=== PATIENT | female | born 1940 | race Caucasian/White ===

== ENCOUNTER 2023-11-20 12:41 | Inpatient (IN) | payer MEDICARE, OTHER, SELFPAY ==
[2023-11-20] VITALS (9 sets, daily range): BP systolic 125–152; BP diastolic 75–112; PULSE 61–154; RESP 16–29; TEMP 36.5–36.8; O2SAT 90–94; BMI 25.7
--- NOTE | 2023-11-20 11:53 | ECG_ITS ---
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 Measurements Intervals [place] Rate: 109 P: 0 AK: 0 QRS: 0 QRSD: 86 T: -26 QT: 346 QTc: 468 Interpretive Statements ATRIAL FIBRILLATION WITH RAPID VENTRICULAR RESPONSE LOW QRS VOLTAGE IN EXTREMITY LEADS [QRS DEFLECTION < 0.5 mV IN LIMB LEADS] POSSIBLE ANTERIOR MYOCARDIAL INFARCTION , PROBABLY OLD [30 ms Q WAVE IN V3/V4, OR R < 0.2 mV IN V4] Compared to ECG 10/09/2016 20:36:07 No significant changes Electronically Signed On 11-20-2023 22:02:39 CDT by Javon Frazier M.D. [id number]
--- NOTE | 2023-11-20 12:49 | XRR_ITS ---
PROCEDURE INFORMATION: Exam: XR Chest Exam date and time: 11/20/2023 12:54 PM Age: 83 years old Clinical indication: Cough and dyspnea; Additional info: Dyspnea/cough TECHNIQUE: Imaging protocol: Radiologic exam of the chest. Views: 1 view. COMPARISON: No relevant prior studies available. FINDINGS: Tubes, catheters and devices: Overlying monitor leads. Lungs: Mild increased markings suggesting small amount of patchy infiltrate mid to lower left lung. Small atelectasis versus scar left lung base. No consolidation. Pleural spaces: Left costophrenic angle is partially obscured in could indicate trace effusion or mild pleural thickening. No pneumothorax. Heart/Mediastinum: Borderline cardiac size. Vasculature: Arteriosclerosis of the thoracic aorta. Bones/joints: Visualized osseous structures show no acute abnormality. XR/XR chest 1V portable [id number] IMPRESSION: Small amount of patchy infiltrate or pneumonitis mid to lower left lung suggested, along with small atelectasis versus scar left lung base. Possible trace effusion versus mild pleural thickening left costophrenic angle.
--- NOTE | 2023-11-20 12:56 | W.ED.WEAKNES ---
HPI - Weakness General: Chief complaint: Weakness Stated complaint: general weakness Time Seen by Provider: 11/20/23 12:43 Source: patient Mode of arrival: EMS History of Present Illness: 83-year-old female presents to the emergency room feeling generally very weak states been hard to get up and get around. EMS reported they were able to transfer from chair to the cot. She states she has not been able to ambulate at home she is not taking any of her medicines today she feels very weak and disoriented. She denies any chest pain or shortness of breath no abdominal pain no dysuria urgency or frequency. She has a history of A-fib with RVR and is on metoprolol and Coumadin she took her Coumadin yesterday was not taking any of her medicines at 2-day. She did fall at home and hit the back of her head although it is a little difficult to get over her exactly where this occurred. MD Complaint: generalized weakness Onset (ago): day(s) Duration: constant and progressively worsening Location: generalized Relieving factors: none Exacerbating factors: none Associated symptoms: Denies chest pain, chills, confusion, melena, decreased appetite, diaphoresis, dysuria, easy bruising, fever(s), headache(s), myalgias, nausea, rash, short of breath, syncope or vomiting Review of Systems Const: Denies: fever(s), chills or diaphoresis Card: Denies: chest pain or syncope Resp: Denies: dyspnea GI: Denies: nausea, vomiting or melena : Denies: dysuria Musc: Denies: neck pain or back pain Skin/Breast: Denies: rash Neuro: Denies: headache(s) or confusion Himanshu/Lymph: Denies: easy bruising [facility] ED PFSH: Medical History (Updated 11/20/23 @ 15:06 by Panchito Resendez DO) Atrial fibrillation Physical Exam Const: GENERAL APPEARANCE: cooperative and comfortable ORIENTATION/CONSCIOUSNESS: Yes awake, Yes oriented to person, Yes oriented to place and Yes oriented to time HENMT: COMMON NORMALS: normocephalic, atraumatic and hearing grossly normal bilaterally HEAD & SCALP: normocephalic and atraumatic Resp: COMMON NORMALS: normal respiratory effort, No retractions and No use of accessory muscles AUSCULTATION: rhonchi Cardio: COMMON NORMALS: No murmurs present (Cardio) RATE: tachycardic RHYTHM: abnormal rhythm irregularly irregular GI: COMMON NORMALS: Soft to palpation and No hepatosplenomegaly present AUSCULTATION: Yes normoactive bowel sounds PALPATION: Yes Soft to palpation, No Tenderness to palpation present (GI), No Guarding due to palpation present (GI) and Yes No hepatosplenomegaly present Extremity: COMMON NORMALS: normal to inspection, capillary refill normal, no clubbing, cyanosis or edema, no calf tenderness and no pedal edema Neuro: SENSORIUM/ORIENTATION: Yes oriented to person, Yes oriented to place and Yes oriented to time Skin: COMMON NORMALS: no rashes or lesions noted GENERAL SKIN EXAM: no rashes or lesions noted Course Vital Signs: Vital signs: Vital Signs Temperature 98.0 F 11/20/23 12:41 Pulse Rate 122 H 11/20/23 12:41 Respiratory Rate 17 11/20/23 12:41 Blood Pressure 138/95 11/20/23 12:41 Pulse Oximetry 92 11/20/23 12:41 Oxygen Delivery Me thod Room Air 11/20/23 12:41 MDM - Weakness Medical Decision Making Patient is in A-fib with RVR as well as some mild heart failure and needed. She also has very mild rhabdomyolysis. Will admit to CSU. Initially we gave her her regular medications for her A-fib as her heart rate was only slightly over 100 however in bed with any activity even attempts to reposition herself her heart rate will shoot up to the 130s and above. At times sustained. Patient was given a Cardizem bolus of 10 mg and started on a drip at 5 will titrate to rate control. Once her rate is controlled she may require some Lasix. Chest x-ray also showed some infiltrate there is a mild elevation in white count she has been cultured and we will start her on Levaquin for what is her while her pressure is better now recheck a manual blood pressure on her please some that were crazy high she is pneumonia. Discussed with hospitalist orders are written Medical Records I reviewed the patient's medical records. Lab Data I reviewed the patient's lab results. 11/20/23 13:02 11/20/23 13:02 Radiology Impressions Chest X-Ray 11/20/23 12:49 IMPRESSION: Small amount of patchy infiltrate or pneumonitis mid to lower left lung suggested, along with small atelectasis versus scar left lung base. Possible trace effusion versus mild pleural thickening left costophrenic angle. Laboratory Results WBC 11.67 10^3/uL (3.29-11.43) H 11/20/23 13:02 RBC 3.38 10^6/uL (3.85-5.65) L 11/20/23 13:02 Hgb 12.00 g/dL (11.27-16.99) 11/20/23 13:02 Hct 36.3 % (36-47) 11/20/23 13:02 MCV 107.4 fl (85-98) H 11/20/23 13:02 MCH 35.5 pg (27-33) H 11/20/23 13:02 MCHC 33.1 g/dL (30-55) 11/20/23 13:02 RDW 15.4 % (12.1-15.1) H 11/20/23 13:02 Plt Count 215 10^3/cmm (157-399) 11/20/23 13:02 MPV 10.5 fL (7.4-10.4) H 11/20/23 13:02 Neut % (Auto) 57.2 % 11/20/23 13:02 Lymph % (Auto) 20.1 % 11/20/23 13:02 [place] % (Auto) 21.5 % 11/20/23 13:02 Eos % (Auto) 0.2 % 11/20/23 13:02 Baso % (Auto) 0.1 % 11/20/23 13:02 Neut # (Auto) 6.67 10^3/uL (1.8-7.7) 11/20/23 13:02 Lymph # (Auto) 2.4 10^3/uL (0.8-4.8) 11/20/23 13:02 [place] # (Auto) 2.5 10^3/uL (0.2-0.9) H 11/20/23 13:02 Eos # (Auto) 0.0 10^3/uL (0.0-0.8) 11/20/23 13:02 Baso # (Auto) 0.0 10^3/uL (0.0-0.1) 11/20/23 13:02 Nucleated RBC % (auto) 0 % 11/20/23 13:02 Nucleated RBCs # 0.0 /100WBC 11/20/23 13:02 PT 38.60 SECONDS (12.1-14.9) H 11/20/23 13:02 INR 3.76 (0.8-1.2) H 11/20/23 13:02 Sodium 139 mmol/L (136-145) 11/20/23 13:02 Potassium 3.5 mmol/L (3.5-5.1) 11/20/23 13:02 Chloride 104 mmol/L (98-107) 11/20/23 13:02 Carbon Dioxide 23 mmol/L (22-29) 11/20/23 13:02 Anion Gap 15.5 (5-19) 11/20/23 13:02 BUN 15 mg/dL (8-23) 11/20/23 13:02 Creatinine 0.5 mg/dL (0.5-0.9) 11/20/23 13:02 GFR Calculation Not Reportable 11/20/23 13:02 Glucose 104 mg/dL (65-115) 11/20/23 13:02 Calculated Osmolality 289 mOsm/kg (285-295) 11/20/23 13:02 Lactic Acid 1.2 mmol/L (0.5-2.2) 11/20/23 13:02 Calcium 9.3 mg/dL (8.5-10.5) 11/20/23 13:02 Total Bilirubin 0.5 mg/dL (0.15-1.2) 11/20/23 13:02 AST 45 U/L (0-32) H 11/20/23 13:02 ALT 18 U/L (0-33) 11/20/23 13:02 Alkaline Phosphatase 65 U/L (35-105) 11/20/23 13:02 Creatine Kinase 385 U/L (26-192) H* 11/20/23 13:02 Troponin T Baseline 22 ng/L (0-10) H 11/20/23 13:02 NT-Pro-B Natriuret Pep 3754 pg/mL (0-450) H 11/20/23 13:02 Total Protein 9.2 g/dL (6.6-8.7) H 11/20/23 13:02 Albumin 3.0 g/dL (3.5-5.2) L 11/20/23 13:02 Globulin 6.2 g/dL (1.3-4.6) H 11/20/23 13:02 Lipase 18 U/L (13-60) 11/20/23 13:02 All radiology interpretation(s) finalized by discharge Discharge Plan Discharge Patient Disposition: Admitted As Inpatient Clinical Impression: Atrial fibrillation with rapid ventricular response, Rhabdomyolysis, Pneumonia, CHF (congestive heart failure) Condition: Stable Prescriptions: No Action paroxetine HCl 10 mg tablet 10 mg PO DAILY warfarin 3 mg tablet See Rx Instructions .ROUTE .COMPLEX Rx Instructions: TAKE 1 TABLET BY MOUTH DAILY EXCEPT THURSDAY AND THURSDAY. trazodone 150 mg tablet 75 - 150 mg PO BEDTIME PRN (Reason: Sleep) warfarin 2 mg Tablet See Rx Instructions .ROUTE .COMPLEX Rx Instructions: TAKE 2 MG BY MOUTH ON THURSDAY AND THURSDAY. metoprolol tartrate 50 mg Tablet 50 mg PO DAILY Referrals: Derek Ramesh MD [Primary Care Provider] - Coding Level of Care Code ED Siding Coreboard Inspector for Mary Zaldivar
--- NOTE | 2023-11-20 13:04 | CT_ITS ---
WS: [id number] CT HEAD NONCONTRAST HISTORY: trauma on anticoagulants TECHNIQUE: Contiguous axial imaging performed through the brain in 2.5 mm imaging. Bone and soft tiss ue windows. Sagittal and coronal reformats reviewed. All CT scans at [facility] use at least one of these dose optimization techniques: automated exposure control; mA and/or kV adjustment per pa tient size (includes targeted exams where dose is matched to clinical indication); or iterative recon struction. DLP: 1243.28 mGy.cm COMPARISON: None available. Mild motion artifact. No large areas of hemorrhage. There are a few scattered foci in the cerebellum and cerebrum of slight increased attenuation which may be areas of calcification. It would be difficu lt to exclude tiny areas of hemorrhage. There is no large hemorrhage. No mass effect or edema. Severe atrophy and white matter disease. Ventricles: Mildly dilated ventricles on the basis of atrophy. No inferior displacement of the cerebellar tonsils. Paranasal sinuses: As visualized are clear. Mastoid air cells: Well pneumatized. Calvarium and scalp: Skull is intact with no soft tissue edema or swelling. IMPRESSION: 1. Study is limited by motion artifact. 2. Severe atrophy and small vessel ischemic disease. 3. There are a few tiny foci of increased attenuation scattered throughout the cerebrum and in the c erebellum. These may be tiny calcifications or related to motion. Tiny amount of blood cannot be excl uded.
[2023-11-20 13:10] LABS: Basophils % 0.1 %; Eosinophils % 0.2 %; Hematocrit 36.3 % (36-47); Lymphocytes # 2.4 10^3/uL (0.8-4.8); Lymphocytes % 20.1 %; Mean Corpuscular HGB Conc 33.1 g/dL (30-55); Mean Corpuscular Hemoglobin 35.5 pg (27-33); Mean Corpuscular Volume 107.4 fl (85-98); Mean Platelet Volume 10.5 fL (7.4-10.4); Monocytes # 2.5 10^3/uL (0.2-0.9); Monocytes % 21.5 %; Neutrophils # 6.67 10^3/uL (1.8-7.7); Neutrophils % 57.2 %; Nucleated Red Blood Cells % 0 %; Platelet Count 215 10^3/cmm (157-399); Red Blood Count 3.38 10^6/uL (3.85-5.65); Red Cell Distribution Width 15.4 % (12.1-15.1); White Blood Count 11.67 10^3/uL (3.29-11.43)
[2023-11-20] MEDS: metoprolol tartrate 25 mg Tablet PO (13:18)
[2023-11-20 13:29] LABS: Lactic Sepsis W/Reflex 1.2 mmol/L (0.5-2.2)
[2023-11-20 13:33] LABS: Troponin(5th) Baseline 22 ng/L (0-10)
[2023-11-20 13:36] LABS: INR 3.76 (0.8-1.2)
[2023-11-20 13:48] LABS: Alanine Aminotransferase 18 U/L (0-33); Alkaline Phosphatase 65 U/L (35-105); Anion Gap 15.5 (5-19); Aspartate Amino Transferase 45 U/L (0-32); Blood Urea Nitrogen 15 mg/dL (8-23); Calcium 9.3 mg/dL (8.5-10.5); Carbon Dioxide 23 mmol/L (22-29); Chloride 104 mmol/L (98-107); Globulin 6.2 g/dL (1.3-4.6); Glucose 104 mg/dL (65-115); Lipase 18 U/L (13-60); NT Pro B Type Natriuretic Pept 3754 pg/mL (0-450); Osmolality Calculated 289 mOsm/kg (285-295); Potassium 3.5 mmol/L (3.5-5.1); Sodium 139 mmol/L (136-145); Total Bilirubin 0.5 mg/dL (0.15-1.2); Total Protein 9.2 g/dL (6.6-8.7)
[2023-11-20 13:49] LABS: Creatine Phosphokinase 385 U/L (26-192)
--- NOTE | 2023-11-20 13:54 | ECG_ITS ---
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 Measurements Intervals [place] Rate: 147 P: 0 NV: 0 QRS: 59 QRSD: 89 T: 60 QT: 211 QTc: 331 Interpretive Statements ATRIAL FIBRILLATION WITH RAPID VENTRICULAR RESPONSE WITH ABERRANT CONDUCTION OR VENTRICULAR PREMATURE COMPLEXES LOW QRS VOLTAGE IN EXTREMITY LEADS [QRS DEFLECTION < 0.5 mV IN LIMB LEADS] POSSIBLE ANTERIOR MYOCARDIAL INFARCTION , PROBABLY OLD [30 ms Q WAVE IN V3/V4, OR R < 0.2 mV IN V4] ABNORMAL RHYTHM ECG Compared to ECG 11/20/2023 11:53:06 Ventricular premature complex(es) now present Aberrant conduction of supraventricular beat(s) now present Myocardial infarct finding still present Electronically Signed On 11-20-2023 22:04:03 CDT by Javon Frazier M.D. [id number]
[2023-11-20] MEDS: dilTIAZem 5 mg/mL SDV 5 mL 10 MG IVP (15:00)
[2023-11-20 15:03] LABS: Add Urine Microscopic? YES; Bilirubin Urine Neg (Negative); Blood Urine 2+ (Negative); Glucose Urine UA Norm (Normal); Ketones Urine 1+ (Negative); Leukocyte Esterase Urine Negative (Negative); Nitrate Urine Negative (Negative); Protein Urine Trace (Negative); Specific Gravity, Urine 1.025 (1.005-1.030); Urine Appearance Clear (CLEAR); Urine Color Yellow (Yellow); Urobilinogen Urine Norm (Negative); pH Urine 5 (5-7)
[2023-11-20 15:04] LABS: Add Urine Culture? No; Bacteria Urine TRACE /hpf; RBC Urine 0-4 /hpf (0-2); Squamous Epithelial Cell Urine 0-4 /hpf (0-5); WBC Urine 0-4 /hpf (0-5)
[2023-11-20] MEDS: levofloxacin-dextrose 5 % 500 MG/100 ML PREMIX 100 MG IV (15:04)
[2023-11-20] MEDS: dilTIAZem 100 MG in sodium chloride 0.9% (add-van) 100 ML IV (15:45)
--- NOTE | 2023-11-20 16:04 | P.HP_ITS ---
Providers/Chief Complaint 2 Admitting Physician: Munira Bull MD Primary Care Provider: Derek Ramesh MD Chief Complaint: general weakness History of Present Illness Ida Chicas is a 83 year old female with history of CHF, chronic A-fib, on Coumadin, uses a walker at home, history of bipolar, presented from home with chief complaint of worsening of generalized weakness and fatigue. Patient stating that she has not noticed any chest pain shortness of breath or fever but she has been extremely lethargic and fatigued she has been not eating well, p.o. intake has been poor, she has been leading sedentary lifestyle lately, she has not noticed productive cough. She is very hard of hearing most information has been provided by the patient. Daughters at the bedside are supplementing as well. In the ER she has been diagnosed with CHF exacerbation with A-fib RVR. Currently she is getting IV levofloxacin and on Cardizem drip Review of Systems 2 Const: Reports: chills and fatigue Eyes: Denies: change in vision ENMT: Denies: throat pain Card: Denies: chest pain Resp: Denies: dyspnea GI: Denies: abdominal pain : Denies: flank pain Musc: Denies: neck pain Skin/Breast: Denies: rash Medications/Allergies Home Medications Medication Instructions Recorded Confirmed Last Taken Type metoprolol tartrate 50 mg tablet 50 mg PO DAILY 11/20/23 11/20/23 11/19/23 History paroxetine HCl 10 mg tablet 10 mg PO DAILY 11/20/23 11/20/23 11/19/23 History trazodone 150 mg tablet 75 - 150 mg PO BEDTIME PRN Sleep 11/20/23 11/20/23 11/19/23 History warfarin 2 mg tablet See Rx Instructions .Route .COMPLEX 11/20/23 11/20/23 11/17/23 History warfarin 3 mg tablet See Rx Instructions .Route .COMPLEX 11/20/23 11/20/23 11/19/23 History Allergies Allergy/AdvReac Type Severity Reaction Status Date / Time No Known Allergies Allergy Verified 11/20/23 12:48 PFSH Acute 2 PFSH: Medical History (Updated 11/20/23 @ 16:07 by Angelo Amor MD) CHF (congestive heart failure) Atrial fibrillation Surgical History (Updated 11/20/23 @ 16:07 by Angelo Amor MD) H/O foot surgery Vitals/I&O/Wt Last Vital Signs Temp 98.0 F 11/20/23 12:41 Pulse 117 H 11/20/23 15:26 Resp 17 11/20/23 12:41 BP 147/86 11/20/23 15:26 Pulse Ox 94 11/20/23 15:26 O2 Del Method Room Air 11/20/23 15:26 Weight last 48 hrs Weight 62.596 kg Physical Exam 2 Narrative: Clinical patient is extremely dehydrated Awake and alert GCS 15 Pleasant cough Currently 2 L No abdominal pain No audible stridor or wheezing Daughter at the bedside Patient provide history Nonfocal neuroexam Data 11/20/23 13:02 11/20/23 13:02 Micro: Microbiology 11/20/23 13:47 Blood Culture - Preliminary Blood SPECIMEN COLLECTED 11/20/23 13:46 Blood Culture - Preliminary Blood SPECIMEN COLLECTED A&P Assessment and plan (1) CHF (congestive heart failure): (2) Atrial fibrillation with rapid ventricular response: (3) Pneumonia: (4) Hypoxia: (5) DNR (do not resuscitate): Plan A-fib RVR with history of chronic A-fib Patient is supratherapeutic Hold Coumadin for 1 more day She has not taken her Coumadin on 11/19 Left-sided pneumonia Continue ceftriaxone was p.o. azithromycin DuoNeb treatment Acute hypoxic related to pneumonia Wean oxygen to room air Fatigue lethargy Related to above-mentioned reasons Request PT Agreeable to go to rehab if needed Acute CHF exacerbation Clinically very dehydrated Will give her IV fluids for 7 to 8 hours ef unkown DNR DNI CARD DIET PT Ordered Attestations 2 Medical Necessity Statement*: >2 midnights anticipated Diagnoses CHF (congestive heart failure) I50.9 Atrial fibrillation with rapid ventricular response I48.91 Pneumonia J18.9 Hypoxia R09.02 DNR (do not resuscitate) Z66
[2023-11-20] MEDS: cefTRIAXone 1,000 MG in sodium chloride 0.9% (plus) 50 ML 100 MG IV (16:54)
[2023-11-20 16:56] LABS: Procalcitonin 0.25 ng/mL (0-0.5); Thyroid Stimulating Hormone 2.82 uIU/mL (0.27-4.20)
[2023-11-20 17:07] LABS: Magnesium 1.6 mg/dL (1.7-2.3)
--- NOTE | 2023-11-20 17:39 | PC.PHAR ---
Pharmacy to dose Warfarin. Hold dose today and evaluate tomorrow as INR is 3.76. Will continue to follow Thank you, Daja
[2023-11-20] MEDS: sodium chloride 0.9% 1,000 ML 75 ML IV (17:59)
--- NOTE | 2023-11-20 18:11 | ECG_ITS ---
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 Measurements Intervals [place] Rate: 94 P: 0 VA: 0 QRS: 37 QRSD: 94 T: 42 QT: 355 QTc: 444 Interpretive Statements ATRIAL FIBRILLATION LOW QRS VOLTAGE [QRS DEFLECTION < 0.5/1.0 mV IN LIMB/CHEST LEADS] Compared to ECG 11/20/2023 13:54:45 Ventricular premature complex(es) no longer present Aberrant conduction of supraventricular beat(s) no longer present Myocardial infarct finding no longer present Electronically Signed On 11-20-2023 22:03:21 CDT by Javon Frazier M.D. [id number]
[2023-11-20 19:58] LABS: Troponin 5 6HR 21.54 ng/L (0-10)
[2023-11-20 19:59] LABS: Troponin 5 6HR Delta -0.46 ng/L (0-12)
[2023-11-20] MEDS: trazodone 150 mg Tablet 50 MG PO (21:05)
[2023-11-21] VITALS (10 sets, daily range): BP systolic 113–145; BP diastolic 59–85; PULSE 78–128; RESP 12–31; TEMP 36.2–37; O2SAT 94–96
[2023-11-21 03:52] LABS: Basophils % 0.1 %; Hematocrit 35.3 % (36-47); Lymphocytes # 2.1 10^3/uL (0.8-4.8); Lymphocytes % 15.4 %; Mean Corpuscular Hemoglobin 34.7 pg (27-33); Mean Corpuscular Volume 108.3 fl (85-98); Mean Platelet Volume 10.5 fL (7.4-10.4); Monocytes # 3.7 10^3/uL (0.2-0.9); Monocytes % 27.5 %; Neutrophils # 7.61 10^3/uL (1.8-7.7); Neutrophils % 56.2 %; Nucleated Red Blood Cells % 0 %; Platelet Count 210 10^3/cmm (157-399); Red Blood Count 3.26 10^6/uL (3.85-5.65); Red Cell Distribution Width 15.4 % (12.1-15.1); White Blood Count 13.53 10^3/uL (3.29-11.43)
[2023-11-21 04:15] LABS: INR 3.85 (0.8-1.2)
[2023-11-21 04:48] LABS: Alanine Aminotransferase 17 U/L (0-33); Alkaline Phosphatase 61 U/L (35-105); Anion Gap 12.6 (5-19); Aspartate Amino Transferase 33 U/L (0-32); Blood Urea Nitrogen 14 mg/dL (8-23); Calcium 8.9 mg/dL (8.5-10.5); Carbon Dioxide 24 mmol/L (22-29); Chloride 103 mmol/L (98-107); Creatinine Clr Calc Pharmacy 44.8798; Globulin 5.4 g/dL (1.3-4.6); Glucose 97 mg/dL (65-115); Magnesium 1.6 mg/dL (1.7-2.3); Osmolality Calculated 282 mOsm/kg (285-295); Potassium 3.6 mmol/L (3.5-5.1); Sodium 136 mmol/L (136-145); Total Bilirubin 0.5 mg/dL (0.15-1.2); Total Protein 8.4 g/dL (6.6-8.7)
--- NOTE | 2023-11-21 06:00 | USCV_ITS ---
Ida Chicas Age: 83 Gender: F : 1940 Exam Date: 11/21/2023 14:43 Ordering Phys: Munira Bull MD Technologist: Ben Mejia Exam Location: [facility] [place] Indication: chf BP: 122 / 68 HR: 100 Rhythm: Atrial fibrillation Technical Quality: Adequate MEASUREMENTS (Male / Female) Normal Values 2D ECHO LVOT Diameter 2.2 cm LV Ejection Fraction MOD 2C 63.3 % LV Ejection Fraction 2C AL 62.7 % LA Diameter 3.0 cm RA Systolic Volume 4C AL 37.5 ml RA Systolic Volume 4C MOD 37.8 ml Aorta at Sinotubular Diameter 2.4 cm IVC Diameter 1.8 cm M-MODE LA Ao Ratio MM 1.8 AV Cusp Separation MM 1.2 cm DOPPLER AV Peak Velocity 166.0 cm/s LVOT Peak Velocity 82.0 cm/s AV Area Cont Eq vti 1.9 cm squared AV Area Cont Eq pk 1.9 cm squared MV Peak Velocity 132.0 cm/s MV Area PHT 5.1 cm squared Mitral E to A Ratio 3.6 TV Peak Velocity 245.3 cm/s TR Peak Velocity 265.0 cm/s TR Peak Gradient 28.1 mmHg TR Mean Velocity 208.0 cm/s TR Mean Gradient 18.2 mmHg TR Velocity Time Integral 72.5 cm PV Peak Velocity 101.3 cm/s RV Ejection Time 0.3 s FINDINGS Left Ventricle Normal left ventricular size and systolic function, EF 60%.mild left ventricular hypertrophy. No gross wall motion abnormalities. Right Ventricle Normal right ventricular size and systolic function. Right Atrium Normal right atrial size. Left Atrium Mildly increased left atrial size. Mitral Valve Thickened mitral valve. Mild mitral annular calcification. Aortic Valve Thickened aortic valve. Tricuspid Valve Trace tricuspid valve regurgitation. Pulmonic Valve Pulmonic valve not well visualized. Pericardium No pericardial effusion. Aorta Normal aortic annulus size. IVC Inferior vena cava not visualized. CONCLUSIONS Normal left ventricular size and systolic function, EF 60%.mild left ventricular hypertrophy. No gross wall motion abnormalities. Mildly increased left atrial size. Normal right ventricular size and systolic function. Thickened mitral valve. Mild mitral annular calcification. Trace tricuspid valve regurgitation. Thickened aortic valve. There are no intracardiac masses. There is no pericardial effusion. Technically difficult study because of the poor ultrasonic window. Compared to the study from 05/19/2014, the left atrial enlargement appears to be new Dr Yolanda Moeller MD [facility] (Electronically Signed) Final Date: 21 November 2023 17:43 S
[2023-11-21] MEDS: dilTIAZem 100 MG in sodium chloride 0.9% (add-van) 100 ML IV (07:48)
[2023-11-21] MEDS: PARoxetine 20 mg Tablet 10 MG PO (08:34)
[2023-11-21] MEDS: metoprolol tartrate 50 mg Tablet PO (08:35)
[2023-11-21] MEDS: pantoprazole DR 40 mg Tablet PO (08:35)
[2023-11-21] MEDS: metoprolol tartrate 25 mg Tablet PO (11:09)
[2023-11-21] MEDS: polyethylene glycol 3350 Pkt 17 gm PO (11:09)
[2023-11-21] MEDS: lidocaine 5% Patch 1 PATCH TOPICAL (11:10)
--- NOTE | 2023-11-21 12:47 | P.PN_ITS ---
Subjective 2 Subjective: Seen this morning. Patient states left side of her chest hurts which is positional pain and exacerbates upon movement.. She was apparently on the toilet for 6 hours in a sideways position leaning on that side before she was taken to bed by her daughter. Heart rate 105-110. Atrial fibrillation Vitals/I&O/Wt Last Vital Signs Temp 98.6 F 11/21/23 07:56 Pulse 83 11/21/23 10:00 Resp 16 11/21/23 10:00 BP 145/78 11/21/23 07:56 Pulse Ox 95 11/21/23 10:00 O2 Del Method Nasal Cannula 11/21/23 10:00 O2 Flow Rate 2 11/21/23 10:00 11/20/23 11/21/23 11/21/23 22:59 06:59 14:59 Intake Total 270 / 270 1080.25 / 1080.25 Output Total 0 / 0 Balance 270 / 270 1080.25 / 1080.25 Weight last 48 hrs Weight 61.83 kg Weight 61.689 kg Weight 62.596 kg Physical Exam 2 Narrative: Appears dehydrated still. Awake and alert GCS 15 Pleasant cough Currently 2 L No abdominal pain No audible stridor or wheezing Daughter at the bedside Clear to auscultation bilaterally no wheezes no rhonchi. Abdomen distended which is chronic for her. Denies any pain. Nontender, bowel sounds present equally in all 4 quadrants. Nonfocal neuroexam Data 11/21/23 03:27 11/21/23 03:27 Micro: Microbiology 11/20/23 13:47 Blood Culture - Preliminary Blood SPECIMEN COLLECTED 11/20/23 13:46 Blood Culture - Preliminary Blood SPECIMEN COLLECTED A&P Assessment and plan (1) CHF (congestive heart failure): (2) Atrial fibrillation with rapid ventricular response: (3) Pneumonia: (4) Hypoxia: (5) DNR (do not resuscitate): Plan A-fib RVR with history of chronic A-fib Patient is supratherapeutic Hold Coumadin for 1 more day She has not taken her Coumadin on 11/19 INR 2.85 today. Continue to hold Coumadin. Titrate metoprolol up to 75 twice daily. Patient takes 50 at home. Will aim to wean off Cardizem drip. Left-sided pneumonia Continue ceftriaxone and p.o. azithromycin DuoNeb treatment Acute hypoxic related to pneumonia Wean oxygen to room air Fatigue lethargy?improved Related to above-mentioned reasons Request PT Agreeable to go to rehab if needed Acute CHF exacerbation Clinically very dehydrated Will give her IV fluids for 7 to 8 hours ef unkown Echocardiogram pending. Left-sided musculoskeletal chest pain. Apply lidocaine patch to the area. This pain has completely positional and musculoskeletal related and not cardiac based on clinical exam. Reproducible to palpation. DNR DNI CARD DIET PT Ordered Attestations 2 Medical Necessity Statement*: Continue to manage atrial fibrillation with RVR and pneumonia. Patient currently on a Cardizem drip. Diagnoses CHF (congestive heart failure) I50.9 Atrial fibrillation with rapid ventricular response I48.91 Pneumonia J18.9 Hypoxia R09.02 DNR (do not resuscitate) Z66
[2023-11-21] MEDS: cefTRIAXone 1,000 MG in sodium chloride 0.9% (plus) 50 ML 100 MG IV (16:21)
[2023-11-21] MEDS: trazodone 150 mg Tablet 50 MG PO (22:06)
[2023-11-21] MEDS: acetaminophen 325 mg Tablet 650 MG PO (22:10)
[2023-11-22] VITALS (11 sets, daily range): BP systolic 99–131; BP diastolic 55–91; PULSE 94–121; RESP 15–29; TEMP 36.4–37.1; O2SAT 94–97
[2023-11-22 04:37] LABS: Basophils % 0.1 %; Eosinophils # 0.1 10^3/uL (0.0-0.8); Eosinophils % 0.5 %; Hematocrit 32.8 % (36-47); Lymphocytes # 2.2 10^3/uL (0.8-4.8); Lymphocytes % 17.9 %; Mean Corpuscular HGB Conc 32.6 g/dL (30-55); Mean Corpuscular Hemoglobin 35.2 pg (27-33); Mean Corpuscular Volume 107.9 fl (85-98); Mean Platelet Volume 10.4 fL (7.4-10.4); Monocytes # 3.8 10^3/uL (0.2-0.9); Monocytes % 30.8 %; Neutrophils # 6.15 10^3/uL (1.8-7.7); Neutrophils % 49.3 %; Nucleated Red Blood Cells % 0 %; Platelet Count 188 10^3/cmm (157-399); Red Blood Count 3.04 10^6/uL (3.85-5.65); Red Cell Distribution Width 15.4 % (12.1-15.1); White Blood Count 12.45 10^3/uL (3.29-11.43)
[2023-11-22 04:46] LABS: INR 4.04 (0.8-1.2)
[2023-11-22 05:02] LABS: Anion Gap 10.7 (5-19); Blood Urea Nitrogen 16 mg/dL (8-23); Carbon Dioxide 27 mmol/L (22-29); Chloride 103 mmol/L (98-107); Creatinine Clr Calc Pharmacy 44.9273; Glucose 117 mg/dL (65-115); Magnesium 1.7 mg/dL (1.7-2.3); Osmolality Calculated 286 mOsm/kg (285-295); Potassium 3.7 mmol/L (3.5-5.1); Sodium 137 mmol/L (136-145)
[2023-11-22] MEDS: metoprolol tartrate 50 mg Tablet PO (09:11)
[2023-11-22] MEDS: PARoxetine 20 mg Tablet 10 MG PO (09:11)
[2023-11-22] MEDS: pantoprazole DR 40 mg Tablet PO (09:11)
[2023-11-22] MEDS: lidocaine 5% Patch 1 PATCH TOPICAL (09:43)
--- NOTE | 2023-11-22 09:56 | PC.NURSE ---
order for an additional 25mg of metoprolol this morning to total 75mg.
[2023-11-22] MEDS: metoprolol tartrate 25 mg Tablet PO (10:04)
--- NOTE | 2023-11-22 13:40 | P.PN_ITS ---
Subjective 2 Subjective: Seen today. A-fib still uncontrolled heart rate. Still requiring Cardizem drip. I have asked the nurse to titrate up the drip. Metoprolol also been increased. Vitals/I&O/Wt Last Vital Signs Temp 97.8 F 11/22/23 11:30 Pulse 110 H 11/22/23 11:30 Resp 23 H 11/22/23 11:30 BP 124/91 11/22/23 11:30 Pulse Ox 95 11/22/23 11:30 O2 Del Method Nasal Cannula 11/22/23 11:30 O2 Flow Rate 2.5 11/22/23 08:20 11/21/23 11/22/23 11/22/23 22:59 06:59 14:59 Intake Total 50 / 1216.25 240 / 240 Balance 50 / 1216.25 240 / 240 Weight last 48 hrs Weight 60.963 kg Weight 61.83 kg Weight 61.689 kg Physical Exam 2 Narrative: Awake and alert GCS 15 Pleasant cough Currently 2 L No abdominal pain No audible stridor or wheezing Daughter at the bedside Clear to auscultation bilaterally no wheezes no rhonchi. Abdomen distended which is chronic for her. Denies any pain. Nontender, bowel sounds present equally in all 4 quadrants. Nonfocal neuroexam Family at bedside today. Patient feels better. Data 11/22/23 04:07 11/22/23 04:07 Micro: Microbiology 11/20/23 13:47 Blood Culture - Preliminary Blood NEGATIVE TO DATE 11/20/23 13:46 Blood Culture - Preliminary Blood NEGATIVE TO DATE A&P Assessment and plan (1) CHF (congestive heart failure): (2) Atrial fibrillation with rapid ventricular response: (3) Pneumonia: (4) Hypoxia: (5) DNR (do not resuscitate): Plan A-fib RVR with history of chronic A-fib Patient is supratherapeutic Hold Coumadin for 1 more day She has not taken her Coumadin on 11/19 INR 2.85 today. Continue to hold Coumadin. Continue metoprolol 75 twice daily.. Titrate up Cardizem drip to 5/h. Left-sided pneumonia Continue ceftriaxone and p.o. azithromycin DuoNeb treatment Acute hypoxic related to pneumonia Wean oxygen to room air Fatigue lethargy?improved Related to above-mentioned reasons Request PT Agreeable to go to rehab if needed Acute CHF exacerbation Normal left ventricular size and systolic function, EF 60%.mild left ventricular hypertrophy. No gross wall motion abnormalities. Mildly increased left atrial size. Normal right ventricular size and systolic function. Thickened mitral valve. Mild mitral annular calcification. Trace tricuspid valve regurgitation. Thickened aortic valve. There are no intracardiac masses. There is no pericardial effusion. Technically difficult study because of the poor ultrasonic window. Compared to the study from 05/19/2014, the left atrial enlargement appears to be new - appeared dehydrated so was given IV fluids for 1L Left-sided musculoskeletal chest pain. Apply lidocaine patch to the area. This pain has completely positional and musculoskeletal related and not cardiac based on clinical exam. Reproducible to palpation. DNR DNI CARD DIET PT Ordered Attestations 2 Medical Necessity Statement*: Continue to manage atrial fibrillation with RVR and pneumonia. Patient currently on a Cardizem drip. Diagnoses CHF (congestive heart failure) I50.9 Atrial fibrillation with rapid ventricular response I48.91 Pneumonia J18.9 Hypoxia R09.02 DNR (do not resuscitate) Z66
--- NOTE | 2023-11-22 14:06 | PC.NURSE ---
Patient sat in chair for 2 hours, from 1200 to 1400.
[2023-11-22] MEDS: dilTIAZem 100 MG in sodium chloride 0.9% (add-van) 100 ML IV (14:20)
[2023-11-22] MEDS: cefTRIAXone 1,000 MG in sodium chloride 0.9% (plus) 50 ML 100 MG IV (15:59)
[2023-11-22] MEDS: lanolin oint 7 gm 1 APPLIC TOPICAL (19:50)
[2023-11-22] MEDS: trazodone 150 mg Tablet 50 MG PO (21:46)
[2023-11-22] MEDS: metoprolol tartrate 50 mg Tablet 75 MG PO (21:46)
--- NOTE | 2023-11-22 23:21 | PC.NURSE ---
After nurse read dr notes Diltiazem titrated up due to note from dr. pt hr not consistently under 100. around 2300 titrated to 5mls/hr.
[2023-11-23] VITALS (8 sets, daily range): BP systolic 107–132; BP diastolic 57–75; PULSE 87–113; RESP 16–27; TEMP 36.4–36.9; O2SAT 92–95
[2023-11-23 04:58] LABS: Basophils % 0.2 %; Eosinophils # 0.1 10^3/uL (0.0-0.8); Eosinophils % 0.4 %; Hematocrit 34.5 % (36-47); Lymphocytes # 2.6 10^3/uL (0.8-4.8); Lymphocytes % 20.8 %; Mean Corpuscular Hemoglobin 35.4 pg (27-33); Mean Corpuscular Volume 107.1 fl (85-98); Mean Platelet Volume 10.8 fL (7.4-10.4); Monocytes # 3.6 10^3/uL (0.2-0.9); Monocytes % 28.9 %; Neutrophils # 6.03 10^3/uL (1.8-7.7); Neutrophils % 48.3 %; Nucleated Red Blood Cells % 0 %; Platelet Count 209 10^3/cmm (157-399); Red Blood Count 3.22 10^6/uL (3.85-5.65); Red Cell Distribution Width 15.2 % (12.1-15.1); White Blood Count 12.49 10^3/uL (3.29-11.43)
[2023-11-23 05:09] LABS: INR 2.76 (0.8-1.2)
[2023-11-23 05:23] LABS: Anion Gap 11.7 (5-19); Blood Urea Nitrogen 14 mg/dL (8-23); Calcium 9.1 mg/dL (8.5-10.5); Carbon Dioxide 27 mmol/L (22-29); Chloride 99 mmol/L (98-107); Creatinine Clr Calc Pharmacy 44.6356; Glucose 98 mg/dL (65-115); Osmolality Calculated 278 mOsm/kg (285-295); Potassium 3.7 mmol/L (3.5-5.1); Sodium 134 mmol/L (136-145)
[2023-11-23] MEDS: pantoprazole DR 40 mg Tablet PO (08:23)
[2023-11-23] MEDS: metoprolol tartrate 50 mg Tablet 75 MG PO ×2 (08:23→20:28)
[2023-11-23] MEDS: PARoxetine 20 mg Tablet 10 MG PO (08:23)
[2023-11-23] MEDS: warfarin 1 mg Tablet 3 MG PO (14:22)
[2023-11-23] MEDS: cefTRIAXone 1,000 MG in sodium chloride 0.9% (plus) 50 ML 100 MG IV (16:35)
--- NOTE | 2023-11-23 17:14 | PM.PN ---
Subjective Subjective: patient states she continues to feel weak today. Cardizem drip titrated off this morning. Heart rate is currently 72 bpm at the time of assessment. She states that she feels very lethargic and weak. Currently getting ready to participate with physical therapy. Medications: Reviewed: Yes Vitals/I&O/Wt Last Vital Signs Temp 98.4 F 11/23/23 08:00 Pulse 101 H 11/23/23 08:00 Resp 20 H 11/23/23 08:00 BP 132/75 11/23/23 08:00 Pulse Ox 95 11/23/23 08:00 O2 Del Method Nasal Cannula 11/23/23 07:50 O2 Flow Rate 2 11/23/23 07:50 11/23/23 11/23/23 11/23/23 06:59 14:59 22:59 Intake Total 52.125 / 645.458 120 / 120 Output Total 0 / 0 Balance 52.125 / 645.458 120 / 120 Weight last 48 hrs Weight 61.689 kg Weight 60.963 kg Physical Exam Narrative: General: No acute distress, AO x3 HEENT: PERRLA, pupils bilaterally equal and reactive, pallors not present Chest: Normal vesicular breath sounds, no added sounds, equal good air entry bilaterally CVS: S1-S2 regular, no murmurs, no tachycardia, no gallops, no rubs Abdomen: Soft, nontender, no organomegaly, bowel sounds present Neuro: No focal deficits, no facial deformity, AO x3, power 5/5 in all limbs Data 11/23/23 03:46 11/23/23 03:46 A&P Assessment and plan (1) CHF (congestive heart failure): (2) Atrial fibrillation with rapid ventricular response: (3) Pneumonia: (4) Hypoxia: (5) DNR (do not resuscitate): Plan A-fib RVR with history of chronic A-fib Patient is supratherapeutic Hold Coumadin for 1 more day She has not taken her Coumadin on 11/19 INR 2.85 today. Continue to hold Coumadin. Continue metoprolol 75 twice daily.. Titrate up Cardizem drip to 5/h. Left-sided pneumonia Continue ceftriaxone and p.o. azithromycin DuoNeb treatment Acute hypoxic related to pneumonia Wean oxygen to room air Fatigue lethargy?improved Related to above-mentioned reasons Request PT Agreeable to go to rehab if needed Acute CHF exacerbation Normal left ventricular size and systolic function, EF 60%.mild left ventricular hypertrophy. No gross wall motion abnormalities. Mildly increased left atrial size. Normal right ventricular size and systolic function. Thickened mitral valve. Mild mitral annular calcification. Trace tricuspid valve regurgitation. Thickened aortic valve. There are no intracardiac masses. There is no pericardial effusion. Technically difficult study because of the poor ultrasonic window. Compared to the study from 05/19/2014, the left atrial enlargement appears to be new - appeared dehydrated so was given IV fluids for 1L Left-sided musculoskeletal chest pain. Apply lidocaine patch to the area. This pain has completely positional and musculoskeletal related and not cardiac based on clinical exam. Reproducible to palpation. DNR DNI CARD DIET PT Ordered Plan for today November 23, 2023. Continue metoprolol 75 mg p.o. twice daily, heart rate is better controlled. Add atypical coverage with azithromycin 500 mg over the next 3 days. Participating with physical therapy today. Patient exhibits decreased attention decreased endurance and decreased strength. Will likely benefit from ongoing therapy. Attestations Medical Necessity Statement*: Ongoing disposition planning, likely to benefit from ongoing continued therapy. Coding Level of Care Code Acute Code for [facility] Fwd Diagnoses CHF (congestive heart failure) I50.9 Atrial fibrillation with rapid ventricular response I48.91 Pneumonia J18.9 Hypoxia R09.02 DNR (do not resuscitate) Z66
[2023-11-23] MEDS: azithromycin 250 mg Tablet 500 MG PO (20:28)
[2023-11-24] VITALS (8 sets, daily range): BP systolic 118–132; BP diastolic 67–110; PULSE 104–119; RESP 16–32; TEMP 36.3; O2SAT 94–96; BMI 25.5
[2023-11-24 03:44] LABS: INR 2.76 (0.8-1.2)
[2023-11-24] MEDS: azithromycin 250 mg Tablet 500 MG PO (09:01)
[2023-11-24] MEDS: PARoxetine 20 mg Tablet 10 MG PO (09:01)
[2023-11-24] MEDS: pantoprazole DR 40 mg Tablet PO (09:02)
[2023-11-24] MEDS: metoprolol tartrate 50 mg Tablet 75 MG PO (09:02)
[2023-11-24] MEDS: lidocaine 5% Patch 1 PATCH TOPICAL (09:02)
[2023-11-24] MEDS: dilTIAZem 30 mg Tablet PO (10:48)
[2023-11-24 14:54] LABS: SARS Covid-2 Antigen negative (Negative)
--- NOTE | 2023-11-24 15:45 | P.DS_ITS ---
Discharge Providers Date of Admission: 11/20/23 14:48 Date of Discharge: November 24, 2023 Attending Provider at Admission: Munira Bull MD Attending Provider at Discharge: Evita Glover MD Primary Care Provider: Derek Ramesh MD Diagnoses at Discharge Discharge Diagnosis (1) CHF (congestive heart failure): Status: Acute (2) Atrial fibrillation with rapid ventricular response: Status: Acute (3) Pneumonia: Status: Acute (4) Hypoxia: Status: Acute (5) DNR (do not resuscitate): Status: Acute Reason for Visit Reason for Visit: general weakness Brief History: Ida Chicas is a 83 year old female with history of CHF, chronic A-fib, on Coumadin, uses a walker at home, history of bipolar, presented from home with chief complaint of worsening of generalized weakness and fatigue. He was found to have A-fib with RVR upon presentation at the ER which necessitated starting the Cardizem infusion. Cardizem drip was eventually able to be weaned off on November 23, 2023. Metoprolol dose was increased from 50 mg p.o. daily as patient takes at home to metoprolol 75 mg p.o. twice daily. With this intervention her heart rate ranged mostly between 90-1 10. An additional oral Cardizem 30 mg every 6 hours as needed for heart rate greater than 120 has been added at the time of discharge. 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 She received treatment with IV ceftriaxone and azithromycin in the hospital, being transitioned to p.o. Augmentin 875 mg twice daily for remaining 3 days. Physical therapy assessment was performed, patient exhibited decreased attention, decreased endurance, decreased strength for balance and safety awareness, expected to benefit from skilled therapy to improve strength and mobility for safe return to prior level of function. At discharge patient is being transitioned to senior care facility to enable ongoing therapy. Warfarin has been continued at discharge, last INR on November 24, 2023 at 2.76, which is within range of 2-3. Physical Exam Narrative: General: No acute distress, AO x3, overall frail, chronically ill-appearing HEENT: PERRLA, pupils bilaterally equal and reactive, pallors not present Chest: Normal vesicular breath sounds, no added sounds, equal good air entry bilaterally CVS: S1-S2 regular, no murmurs, no tachycardia, no gallops, no rubs Abdomen: Soft, nontender, no organomegaly, bowel sounds present Neuro: No focal deficits, no facial deformity, AO x3, power 5/5 in all limbs Extremities: No edema clubbing or cyanosis Discharge Data Studies Completed and Pending Completed Studies During Hospitalization Category Date Time Status CT head wo con* [id number] Stat Cat Scan 11/20/23 13:04 Completed XR chest 1V portable [id number] Stat Exams 11/20/23 12:49 Completed CV. echo complete* [id number] Routine Ultrasound 11/21/23 06:00 Completed Pending at discharge Category Date Time Status Bacterial Antigen Routine Lab 11/23/23 17:17 Uncollected Blood Culture Stat Lab 11/20/23 13:47 Results Legionella Antigen STAT Routine Lab 11/23/23 17:17 Uncollected Prothrombin Time INR AM LABS Lab 11/25/23 04:00 Ordered Prothrombin Time INR AM LABS Lab 11/26/23 04:00 Ordered Sputum Culture and Gram Stain Stat Lab 11/20/23 15:35 Uncollected Radiology Impressions Chest X-Ray 11/20/23 12:49 IMPRESSION: Small amount of patchy infiltrate or pneumonitis mid to lower left lung suggested, along with small atelectasis versus scar left lung base. Possible trace effusion versus mild pleural thickening left costophrenic angle. Laboratory Results WBC 12.49 10^3/uL (3.29-11.43) H 11/23/23 03:46 RBC 3.22 10^6/uL (3.85-5.65) L 11/23/23 03:46 Hgb 11.40 g/dL (11.27-16.99) 11/23/23 03:46 Hct 34.5 % (36-47) L 11/23/23 03:46 MCV 107.1 fl (85-98) H 11/23/23 03:46 MCH 35.4 pg (27-33) H 11/23/23 03:46 MCHC 33.0 g/dL (30-55) 11/23/23 03:46 RDW 15.2 % (12.1-15.1) H 11/23/23 03:46 Plt Count 209 10^3/cmm (157-399) 11/23/23 03:46 MPV 10.8 fL (7.4-10.4) H 11/23/23 03:46 Neut % (Auto) 48.3 % 11/23/23 03:46 Lymph % (Auto) 20.8 % 11/23/23 03:46 Day % (Auto) 28.9 % 11/23/23 03:46 Eos % (Auto) 0.4 % 11/23/23 03:46 Baso % (Auto) 0.2 % 11/23/23 03:46 Neut # (Auto) 6.03 10^3/uL (1.8-7.7) 11/23/23 03:46 Lymph # (Auto) 2.6 10^3/uL (0.8-4.8) 11/23/23 03:46 Day # (Auto) 3.6 10^3/uL (0.2-0.9) H 11/23/23 03:46 Eos # (Auto) 0.1 10^3/uL (0.0-0.8) 11/23/23 03:46 Baso # (Auto) 0.0 10^3/uL (0.0-0.1) 11/23/23 03:46 Nucleated RBC % (auto) 0 % 11/23/23 03:46 Nucleated RBCs # 0.0 /100WBC 11/23/23 03:46 PT 30.20 SECONDS (12.1-14.9) H 11/24/23 03:14 INR 2.76 (0.8-1.2) H 11/24/23 03:14 Sodium 134 mmol/L (136-145) L 11/23/23 03:46 Potassium 3.7 mmol/L (3.5-5.1) 11/23/23 03:46 Chloride 99 mmol/L (98-107) 11/23/23 03:46 Carbon Dioxide 27 mmol/L (22-29) 11/23/23 03:46 Anion Gap 11.7 (5-19) 11/23/23 03:46 BUN 14 mg/dL (8-23) 11/23/23 03:46 Creatinine 0.5 mg/dL (0.5-0.9) 11/23/23 03:46 GFR Calculation Not Reportable 11/23/23 03:46 Glucose 98 mg/dL (65-115) 11/23/23 03:46 Calculated Osmolality 278 mOsm/kg (285-295) L 11/23/23 03:46 Lactic Acid 1.2 mmol/L (0.5-2.2) 11/20/23 13:02 Calcium 9.1 mg/dL (8.5-10.5) 11/23/23 03:46 Magnesium 1.7 mg/dL (1.7-2.3) 11/22/23 04:07 Total Bilirubin 0.5 mg/dL (0.15-1.2) 11/21/23 03:27 AST 33 U/L (0-32) H 11/21/23 03:27 ALT 17 U/L (0-33) 11/21/23 03:27 Alkaline Phosphatase 61 U/L (35-105) 11/21/23 03:27 Creatine Kinase 385 U/L (26-192) H* 11/20/23 13:02 Troponin T Baseline 22 ng/L (0-10) H 11/20/23 13:02 Troponin T 120 Minute 21.20 ng/L (0-10) H 11/20/23 15:07 Delta Troponin T -0.80 ABS# (0-10) L 11/20/23 15:07 Troponin T Hi Sens 6Hr 21.54 ng/L (0-10) H 11/20/23 19:30 Troponin T Hi Sens 6Hr Delta -0.46 ng/L (0-12) L 11/20/23 19:30 NT-Pro-B Natriuret Pep 3754 pg/mL (0-450) H 11/20/23 13:02 Total Protein 8.4 g/dL (6.6-8.7) 11/21/23 03:27 Albumin 3.0 g/dL (3.5-5.2) L 11/21/23 03:27 Globulin 5.4 g/dL (1.3-4.6) H 11/21/23 03:27 Lipase 18 U/L (13-60) 11/20/23 13:02 Procalcitonin 0.25 ng/mL (0-0.5) 11/20/23 13:02 TSH 2.82 uIU/mL (0.27-4.20) 11/20/23 13:02 Urine Color Yellow (Yellow) 11/20/23 14:45 Urine Appearance Clear (CLEAR) 11/20/23 14:45 Urine pH 5 (5-7) 11/20/23 14:45 Ur Specific [place] 1.025 (1.005-1.030) 11/20/23 14:45 Urine Protein Trace (Negative) 11/20/23 14:45 Urine Glucose (UA) Norm (Normal) 11/20/23 14:45 Urine Ketones 1+ (Negative) H 11/20/23 14:45 Urine Blood 2+ (Negative) H 11/20/23 14:45 Urine Nitrate Negative (Negative) 11/20/23 14:45 Urine Bilirubin Neg (Negative) 11/20/23 14:45 Urine Urobilinogen Norm mg/dL (Negative) 11/20/23 14:45 Ur Leukocyte Esterase Negative (Negative) 11/20/23 14:45 Urine RBC 0-4 /hpf (0-2) H 11/20/23 14:45 Urine WBC 0-4 /hpf (0-5) H 11/20/23 14:45 Ur Squamous Epith Cells 0-4 /hpf (0-5) H 11/20/23 14:45 Amorphous Sediment Not Reportable 11/20/23 14:45 Urine Bacteria Trace /hpf (NONE) 11/20/23 14:45 SARS-CoV-2 Ag (Rapid) negative (Negative) 11/24/23 14:05 Vitals Last Vital Signs Temp 97.4 F L 11/24/23 00:32 Pulse 106 H 11/24/23 14:35 Resp 32 H 11/24/23 14:35 BP 118/72 11/24/23 14:35 Pulse Ox 96 11/24/23 14:35 O2 Del Method Nasal Cannula 11/24/23 09:07 O2 Flow Rate 2 11/24/23 09:07 Discharge Plan Discharge Patient Disposition: Xfer SNF Condition: Stable Prescriptions: New ipratropium-albuterol 0.5 mg-3 mg(2.5 mg base)/3 mL Solution For Nebulization 3 ml inhalation Q6H PRN (Reason: Shortness Of Breath) 30 Days Qty: 30 0RF pantoprazole 40 mg Tablet,Delayed Release (Dr/Ec) 40 mg PO DAILY 30 Days Qty: 30 0RF diltiazem HCl 30 mg Tablet 30 mg PO Q6H PRN (Reason: heart rate > 120) Qty: 60 0RF amoxicillin-pot clavulanate 875-125 mg tablet 1 tab PO BID 3 Days Qty: 6 0RF Continued paroxetine HCl 10 mg tablet 10 mg PO DAILY warfarin 3 mg tablet See Rx Instructions .ROUTE .COMPLEX Rx Instructions: TAKE 1 TABLET BY MOUTH DAILY EXCEPT THURSDAY AND THURSDAY. trazodone 150 mg tablet 75 - 150 mg PO BEDTIME PRN (Reason: Sleep) warfarin 2 mg Tablet See Rx Instructions .ROUTE .COMPLEX Rx Instructions: TAKE 2 MG BY MOUTH ON THURSDAY AND THURSDAY. Changed metoprolol tartrate 50 mg Tablet 75 mg PO BIDWM 30 Days Qty: 60 0RF Discharge Orders: Discharge Order (Routine); Ordered 11/24/23 Ordered By: Evita Glover Referrals: Derek Ramesh MD [Primary Care Provider] - Patient Instructions: Heart Failure (DC), CHF Stoplight, Opioid Safety Discharge Attestations Time Spent in Discharge Care*: greater than 30 min Quality Metrics Clinical Quality Measures [ No reported AMI, CVA or VTE this stay] Coding Level of Care Code Acute Code for [facility] Fwd Diagnoses CHF (congestive heart failure) I50.9 Atrial fibrillation with rapid ventricular response I48.91 Pneumonia J18.9 Hypoxia R09.02 DNR (do not resuscitate) Z66
--- NOTE | 2023-11-24 16:25 | PC.NURSE ---
Discharge Note Patient discharged to SNF via POV accompanied by [facility] staff. Discharge instructions reviewed with patient and/or admitting representative. Mobile pharmacy medications and/or prescriptions provided. Belongings/home medications returned.
== END 2023-11-24 16:25 | disposition skilled nursing facility (03) | DRG 308 ==
LOC: ER 15:06 → CSU 15:10
PROVIDERS: Admitting Provider Internal Medicine; Emergency Provider Family Medicine; PCP Family Medicine; Visit Provider Student in an Organized Health Care Education/Training Program
DX: I48.20 Chronic atrial fibrillation, unspecified (principal); J18.9 Pneumonia, unspecified organism; Z79.01 Long term (current) use of anticoagulants; Z66 Do not resuscitate; E86.0 Dehydration; R07.89 Other chest pain; I50.9 Heart failure, unspecified; R79.1 Abnormal coagulation profile
CPT/HCPCS: 36415; 70450; 71045; 80048; 80053; 81001; 81015; 82550; 83605; 83690; 83735; 83880; 84145; 84443; 84484; 85025; 85610; 87040; 87426; 93005; 93306; 94664; 96365; 96366; 96367; 96375; 96376; 97110; 97161; 97530; 99285; J0696; J1956; J3490; J7030; Q0144

== ENCOUNTER 2024-02-01 06:23 | Inpatient (IN) | payer MEDICARE, OTHER, SELFPAY ==
[2024-02-01] VITALS (149 sets, daily range): BP systolic 67–133; BP diastolic 40–85; PULSE 90–127; RESP 0–59; TEMP 36.4–37.4; O2SAT 85–100; BMI 18.8
--- NOTE | 2024-02-01 06:29 | XRR_ITS ---
PROCEDURE INFORMATION: Exam: XR Chest Exam date and time: 02/01/2024 6:38 AM Age: 83 years old Clinical indication: Other: Syncope TECHNIQUE: Imaging protocol: Radiologic exam of the chest. Views: 1 view. COMPARISON: CR XR chest 1V portable [id number] 11/20/2023 12:54 PM FINDINGS: Lungs: Bibasilar opacities likely representing effusion and/or parenchymal disease. Increased interstitial markings noted in the lungs. Pleural spaces: No pneumothorax. Heart/Mediastinum: Unremarkable. No cardiomegaly. Bones/joints: Degenerative changes are noted in the bones osteopenia and levoscoliosis of the thoracolumbar spine. XR/XR chest 1V portable [id number] IMPRESSION: Findings compatible with CHF and/or pneumonia.
--- NOTE | 2024-02-01 06:29 | ECG_ITS ---
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 Measurements Intervals [place] Rate: 106 P: 0 HI: 0 QRS: 16 QRSD: 88 T: 22 QT: 344 QTc: 457 Interpretive Statements ATRIAL FIBRILLATION WITH RAPID VENTRICULAR RESPONSE LOW QRS VOLTAGE IN EXTREMITY LEADS [QRS DEFLECTION < 0.5 mV IN LIMB LEADS] POSSIBLE ANTERIOR MYOCARDIAL INFARCTION , PROBABLY OLD [30 ms Q WAVE IN V3/V4, OR R < 0.2 mV IN V4] ABNORMAL RHYTHM ECG Compared to ECG 11/20/2023 18:11:42 Myocardial infarct finding now present Electronically Signed On 02-01-2024 8:36:51 CDT by Yolanda Moeller M.D. [email or web address]
--- NOTE | 2024-02-01 06:32 | ED_ITS ---
Documented by User: Germain Han DO 02/01/24 06:59 HPI - Syncope 2 General: Chief Complaint: Syncope Stated Complaint: SYNCOPE Time Seen by Provider: 02/01/24 06:29 History of Present Illness: Patient presents to the ER from group home by EMS with complaints of syncopal type episode. At the group home they were getting her up when she suddenly went limp, her heart rate dropped down to 38 her O2 sat dropped and she become diaphoretic.. Upon arrival to the ER patient is alert and oriented x 3 but appears sluggish. EMS noted patient to be in A-fib, she has a history of A-fib and CHF she was discharged here from the hospital approximately 2 months ago with a diagnosis of A-fib with RVR, she had an echo performed at that time. It showed normal left ventricular function EF of 60% mild LVH Review of Systems 2 General: Reports: 10 or more systems reviewed and unremarkable except in HPI and below PFSH ED 2 PFSH: Medical History CHF (congestive heart failure) Atrial fibrillation Surgical History H/O foot surgery Physical Exam 2 Const: COMMON NORMALS: no acute distress, average body habitus, patient oriented x3, no limitations, healthy appearing, alert and well nourished HENMT: COMMON NORMALS: normocephalic, atraumatic, hearing grossly normal bilaterally, external ears normal, Normal external nose present, moist oral mucous membranes and oropharynx normal HEAD & SCALP: normocephalic and atraumatic NOSE: Normal external nose present EXTERNAL EAR: Yes external ears normal Eye: COMMON NORMALS: Equal, round and reactive pupils present, EOMs intact bilaterally, conjunctivae normal and no scleral icterus CONJUNCTIVA: Yes conjunctivae normal PUPIL: Yes Equal, round and reactive pupils present Chest: COMMONS NORMALS: normal inspection of the chest and normal palpation of entire chest wall Resp: COMMON NORMALS: normal respiratory effort, No retractions, No use of accessory muscles and clear to auscultation bilaterally (Decreased bilaterally) AUSCULTATION: clear to auscultation bilaterally (Decreased bilaterally) Cardio: COMMON NORMALS: S1 normal heart sound present, S2 normal heart sound present, No gallops present (Cardio), No clicks present (Cardio) and No rub (Cardio); negative for regular rate (Irregularly irregular rhythm mildly tachycardic) R ATE: abnormal rate (Irregularly irregular rhythm mildly tachycardic) HEART SOUNDS: S1 normal heart sound present and S2 normal heart sound present GI: COMMON NORMALS: Normal to inspection, nondistended, normoactive bowel sounds present, Soft to palpation, non-tender, No hepatosplenomegaly present and no masses PALPATION: Yes Soft to palpation and Yes No hepatosplenomegaly present Extremity: NARRATIVE EXTREMITY EXAM: 1+ pitting edema bilateral lower extremi ties Neuro: COMMON NORMALS: patient oriented x3 SENSORIUM/ORIENTATION: Yes alert Course 2 Vital Signs: Vital signs: Vital Signs Temperature 98.2 F 02/01/24 06:24 Pulse Rate 105 H 02/01/24 08:00 Respiratory Rate 26 H 02/01/24 08:00 Blood Pressure 109/71 02/01/24 08:00 Pulse Oximetry 86 L 02/01/24 08:00 MDM - Syncope Lab Data 02/01/24 06:48 02/01/24 06:48 Radiology Impressions Chest X-Ray 02/01/24 06:29 IMPRESSION: Findings compatible with CHF and/or pneumonia. Laboratory Results WBC 13.66 10^3/uL (3.29-11.43) H 02/01/24 06:48 RBC 2.49 10^6/uL (3.85-5.65) L 02/01/24 06:48 Hgb 9.00 g/dL (11.27-16.99) L 02/01/24 06:48 Hct 31.0 % (36-47) L 02/01/24 06:48 MCV 124.5 fl (85-98) H 02/01/24 06:48 MCH 36.1 pg (27-33) H 02/01/24 06:48 MCHC 29.0 g/dL (30-55) L 02/01/24 06:48 RDW 15.7 % (12.1-15.1) H 02/01/24 06:48 Plt Count 177 10^3/cmm (157-399) 02/01/24 06:48 MPV 11.8 fL (7.4-10.4) H 02/01/24 06:48 Neut % (Auto) 62.2 % 02/01/24 06:48 Lymph % (Auto) 14.1 % 02/01/24 06:48 [place] % (Auto) 19.3 % 02/01/24 06:48 Eos % (Auto) 0.1 % 02/01/24 06:48 Baso % (Auto) 0.1 % 02/01/24 06:48 Neut # (Auto) 8.49 10^3/uL (1.8-7.7) H 02/01/24 06:48 Lymph # (Auto) 1.9 10^3/uL (0.8-4.8) 02/01/24 06:48 [place] # (Auto) 2.6 10^3/uL (0.2-0.9) H 02/01/24 06:48 Eos # (Auto) 0.0 10^3/uL (0.0-0.8) 02/01/24 06:48 Baso # (Auto) 0.0 10^3/uL (0.0-0.1) 02/01/24 06:48 Nucleated RBC % (auto) 0.4 % 02/01/24 06:48 Nucleated RBCs # 0.1 /100WBC 02/01/24 06:48 PT 65.70 SECONDS (12.1-14.9) H 02/01/24 06:48 INR 7.34 (0.8-1.2) H* 02/01/24 06:48 Sodium 143 mmol/L (136-145) 02/01/24 06:48 Potassium 4.8 mmol/L (3.5-5.1) 02/01/24 06:48 Chloride 101 mmol/L (98-107) 02/01/24 06:48 Carbon Dioxide 37 mmol/L (22-29) H 02/01/24 06:48 Anion Gap 9.8 (5-19) 02/01/24 06:48 BUN 25 mg/dL (8-23) H 02/01/24 06:48 Creatinine 0.8 mg/dL (0.5-0.9) 02/01/24 06:48 GFR Calculation Not Reportable 02/01/24 06:48 Glucose 133 mg/dL (65-115) H 02/01/24 06:48 Calculated Osmolality 302 mOsm/kg (285-295) H 02/01/24 06:48 Calcium 9.0 mg/dL (8.5-10.5) 02/01/24 06:48 Magnesium 2.1 mg/dL (1.7-2.3) 02/01/24 06:48 Total Bilirubin 0.4 mg/dL (0.15-1.2) 02/01/24 06:48 AST 15 U/L (0-32) 02/01/24 06:48 ALT 11 U/L (0-33) 02/01/24 06:48 Alkaline Phosphatase 60 U/L (35-105) 02/01/24 06:48 Troponin T Baseline 26 ng/L (0-10) H 02/01/24 06:48 NT-Pro-B Natriuret Pep 4546 pg/mL (0-450) H 02/01/24 06:48 Total Protein 8.1 g/dL (6.6-8.7) 02/01/24 06:48 Albumin 3.2 g/dL (3.5-5.2) L 02/01/24 06:48 Globulin 4.9 g/dL (1.3-4.6) H 02/01/24 06:48 All radiology interpretation(s) finalized by discharge EKG Data EKG 1: I personally reviewed and interpreted this EKG as follows: EKG interpretation date: 02/01/24 EKG interpretation time: 06:29 Prior EKG tracings: available for review Interpretation: Ventricular rate 106 bpm, QRS duration 88, QTc of 406, A-fib with RVR Discharge Plan Discharge Patient Disposition: Admitted As Inpatient Clinical Impression: CHF (congestive heart failure), Atrial fibrillation with rapid ventricular response, Encephalopathy, Over-anticoagulated, Acute GI bleeding Condition: Stable Prescriptions: No Action warfarin 3 mg tablet See Rx Instructions .ROUTE .COMPLEX Rx Instructions: TAKE 1 TABLET BY MOUTH 3 TIMES PER WEEK ON THURSDAY, THURSDAY AND THURSDAY. warfarin 2 mg Tablet See Rx Instructions .ROUTE .COMPLEX Rx Instructions: TAKE 2 MG BY MOUTH 4 TIMES PER WEEK ON THURSDAY, THURSDAY, THURSDAY AND THURSDAY. diltiazem HCl 30 mg Tablet 30 mg PO Q6H PRN (Reason: heart rate > 120) Qty: 60 0RF acetaminophen 325 mg Tablet 325 mg PO TID trazodone 50 mg Tablet 50 mg PO BEDTIME Xanax 0.5 mg Tablet 0.5 mg PO Q8H PRN (Reason: Anxiety) Milk of Magnesia 400 mg/5 mL Suspension 30 ml PO DAILY PRN (Reason: Constipation) paroxetine HCl 20 mg Tablet 20 mg PO DAILY pantoprazole 40 mg Tablet,Delayed Release (Dr/Ec) 40 mg PO DAILY Fleet Enema 19-7 gram/118 mL Enema 118 ml [place] DAILY PRN (Reason: Constipation) Referrals: Derek Ramesh MD [Primary Care Provider] - Sign Out Sign Out Data: Patient Sign Out occurred on 02/01/24 at 07:05. Patient's care was discussed, and care was transferred from Germain Han DO to Panchito Resendez DO. Coding Level of Care Code ED Senior Animal Trainer for Chg Fwd Documented by User: Panchito Resendez DO 02/01/24 08:20 HPI - Syncope 2 General: Chief Complaint: Syncope Stated Complaint: SYNCOPE Time Seen by Provider: 02/01/24 06:29 [facility] ED 2 PFSH: Medical History CHF (congestive heart failure) Atrial fibrillation Surgical History H/O foot surgery Course 2 Vital Signs: Vital signs: Vital Signs Temperature 98.2 F 02/01/24 06:24 Pulse Rate 105 H 02/01/24 08:00 Respiratory Rate 26 H 02/01/24 08:00 Blood Pressure 109/71 02/01/24 08:00 Pulse Oximetry 86 L 02/01/24 08:00 MDM - Syncope Medical Decision Making Care assumed at change of shift chart reviewed. Patient has a history of A-fib with RVR she was hospitalized a month ago. Presents today with a syncopal episode. She is typically on 2 L by nasal cannula now requiring 3 she is very lethargic. One of our staff members working this morning is actually a family member of hers endorses that the patient is usually much more awake and alert is very off of her normal baseline was unable to recognize the family member when they went in the room. She has a difficult time answering questions regarding symptoms. Chest x-ray shows heart failure with pleural effusions hemoglobin 9 was at a max of 12 in mid November discharged home at 11 4. She is on warfarin INR this morning is 7.34 she has Hemoccult positive stools. When placed supine for placement of Cantu noted to have significant desaturation. Blood pressure did decrease somewhat while she was being monitored. She was given a dose of 50 of metoprolol for her A-fib as her heart rate was going to the 120s at times. Normally she is on 75 twice daily with as needed diltiazem. Heart rate is now improved blood pressure has also improved to a systolic of 116. She is also given Protonix and vitamin K. Family has asked that she be a full code at this time. Discussed Dr. Trevino is on for hospitalist will admit to the ICU. Orders written. Medical Records I reviewed the patient's medical records. Lab Data I reviewed the patient's lab results. 02/01/24 06:48 02/01/24 06:48 Radiology Impressions Chest X-Ray 02/01/24 06:29 IMPRESSION: Findings compatible with CHF and/or pneumonia. Laboratory Results WBC 13.66 10^3/uL (3.29-11.43) H 02/01/24 06:48 RBC 2.49 10^6/uL (3.85-5.65) L 02/01/24 06:48 Hgb 9.00 g/dL (11.27-16.99) L 02/01/24 06:48 Hct 31.0 % (36-47) L 02/01/24 06:48 MCV 124.5 fl (85-98) H 02/01/24 06:48 MCH 36.1 pg (27-33) H 02/01/24 06:48 MCHC 29.0 g/dL (30-55) L 02/01/24 06:48 RDW 15.7 % (12.1-15.1) H 02/01/24 06:48 Plt Count 177 10^3/cmm (157-399) 02/01/24 06:48 MPV 11.8 fL (7.4-10.4) H 02/01/24 06:48 Neut % (Auto) 62.2 % 02/01/24 06:48 Lymph % (Auto) 14.1 % 02/01/24 06:48 [place] % (Auto) 19.3 % 02/01/24 06:48 Eos % (Auto) 0.1 % 02/01/24 06:48 Baso % (Auto) 0.1 % 02/01/24 06:48 Neut # (Auto) 8.49 10^3/uL (1.8-7.7) H 02/01/24 06:48 Lymph # (Auto) 1.9 10^3/uL (0.8-4.8) 02/01/24 06:48 [place] # (Auto) 2.6 10^3/uL (0.2-0.9) H 02/01/24 06:48 Eos # (Auto) 0.0 10^3/uL (0.0-0.8) 02/01/24 06:48 Baso # (Auto) 0.0 10^3/uL (0.0-0.1) 02/01/24 06:48 Nucleated RBC % (auto) 0.4 % 02/01/24 06:48 Nucleated RBCs # 0.1 /100WBC 02/01/24 06:48 PT 65.70 SECONDS (12.1-14.9) H 02/01/24 06:48 INR 7.34 (0.8-1.2) H* 02/01/24 06:48 Sodium 143 mmol/L (136-145) 02/01/24 06:48 Potassium 4.8 mmol/L (3.5-5.1) 02/01/24 06:48 Chloride 101 mmol/L (98-107) 02/01/24 06:48 Carbon Dioxide 37 mmol/L (22-29) H 02/01/24 06:48 Anion Gap 9.8 (5-19) 02/01/24 06:48 BUN 25 mg/dL (8-23) H 02/01/24 06:48 Creatinine 0.8 mg/dL (0.5-0.9) 02/01/24 06:48 GFR Calculation Not Reportable 02/01/24 06:48 Glucose 133 mg/dL (65-115) H 02/01/24 06:48 Calculated Osmolality 302 mOsm/kg (285-295) H 02/01/24 06:48 Calcium 9.0 mg/dL (8.5-10.5) 02/01/24 06:48 Magnesium 2.1 mg/dL (1.7-2.3) 02/01/24 06:48 Total Bilirubin 0.4 mg/dL (0.15-1.2) 02/01/24 06:48 AST 15 U/L (0-32) 02/01/24 06:48 ALT 11 U/L (0-33) 02/01/24 06:48 Alkaline Phosphatase 60 U/L (35-105) 02/01/24 06:48 Troponin T Baseline 26 ng/L (0-10) H 02/01/24 06:48 NT-Pro-B Natriuret Pep 4546 pg/mL (0-450) H 02/01/24 06:48 Total Protein 8.1 g/dL (6.6-8.7) 02/01/24 06:48 Albumin 3.2 g/dL (3.5-5.2) L 02/01/24 06:48 Globulin 4.9 g/dL (1.3-4.6) H 02/01/24 06:48 Discharge Plan Discharge Patient Disposition: Admitted As Inpatient Clinical Impression: CHF (congestive heart failure), Atrial fibrillation with rapid ventricular response, Encephalopathy, Over-anticoagulated, Acute GI bleeding Condition: Stable Prescriptions: No Action warfarin 3 mg tablet See Rx Instructions .ROUTE .COMPLEX Rx Instructions: TAKE 1 TABLET BY MOUTH 3 TIMES PER WEEK ON THURSDAY, THURSDAY AND THURSDAY. warfarin 2 mg Tablet See Rx Instructions .ROUTE .COMPLEX Rx Instructions: TAKE 2 MG BY MOUTH 4 TIMES PER WEEK ON THURSDAY, THURSDAY, THURSDAY AND THURSDAY. diltiazem HCl 30 mg Tablet 30 mg PO Q6H PRN (Reason: heart rate > 120) Qty: 60 0RF acetaminophen 325 mg Tablet 325 mg PO TID trazodone 50 mg Tablet 50 mg PO BEDTIME Xanax 0.5 mg Tablet 0.5 mg PO Q8H PRN (Reason: Anxiety) Milk of Magnesia 400 mg/5 mL Suspension 30 ml PO DAILY PRN (Reason: Constipation) paroxetine HCl 20 mg Tablet 20 mg PO DAILY pantoprazole 40 mg Tablet,Delayed Release (Dr/Ec) 40 mg PO DAILY Fleet Enema 19-7 gram/118 mL Enema 118 ml [place] DAILY PRN (Reason: Constipation) Referrals: Derek Ramesh MD [Primary Care Provider] - Sign Out Sign Out Data: Patient Sign Out occurred on 02/01/24 at 07:05. Patient's care was discussed, and care was transferred from Germain Han DO to Panchito Resendez DO. Coding Level of Care Code ED Senior Animal Trainer for Mary Zaldivar
[2024-02-01 06:54] LABS: Basophils % 0.1 %; Eosinophils % 0.1 %; Lymphocytes # 1.9 10^3/uL (0.8-4.8); Lymphocytes % 14.1 %; Mean Corpuscular Hemoglobin 36.1 pg (27-33); Mean Corpuscular Volume 124.5 fl (85-98); Mean Platelet Volume 11.8 fL (7.4-10.4); Monocytes # 2.6 10^3/uL (0.2-0.9); Monocytes % 19.3 %; Neutrophils # 8.49 10^3/uL (1.8-7.7); Neutrophils % 62.2 %; Nucleated Red Blood Cells # 0.1 /100WBC; Nucleated Red Blood Cells % 0.4 %; Platelet Count 177 10^3/cmm (157-399); Red Blood Count 2.49 10^6/uL (3.85-5.65); Red Cell Distribution Width 15.7 % (12.1-15.1); White Blood Count 13.66 10^3/uL (3.29-11.43)
[2024-02-01 07:16] LABS: Troponin(5th) Baseline 26 ng/L (0-10)
[2024-02-01] MEDS: metoprolol tartrate 50 mg Tablet PO (07:22)
[2024-02-01 07:26] LABS: INR 7.34 (0.8-1.2)
[2024-02-01 07:30] LABS: Alanine Aminotransferase 11 U/L (0-33); Albumin Level 3.2 g/dL (3.5-5.2); Alkaline Phosphatase 60 U/L (35-105); Blood Urea Nitrogen 25 mg/dL (8-23); Carbon Dioxide 37 mmol/L (22-29); Chloride 101 mmol/L (98-107); Creatinine Clr Calc Pharmacy 39.3855; Globulin 4.9 g/dL (1.3-4.6); Glucose 133 mg/dL (65-115); Magnesium 2.1 mg/dL (1.7-2.3); NT Pro B Type Natriuretic Pept 4546 pg/mL (0-450); Osmolality Calculated 302 mOsm/kg (285-295); Sodium 143 mmol/L (136-145); Total Bilirubin 0.4 mg/dL (0.15-1.2); Total Protein 8.1 g/dL (6.6-8.7)
[2024-02-01 07:32] LABS: Anion Gap 9.8 (5-19); Aspartate Amino Transferase 15 U/L (0-32); Potassium 4.8 mmol/L (3.5-5.1)
[2024-02-01] MEDS: phytonadione (ADULT) 10 MG in sodium chloride 0.9% 50 ML 153 MG IV (07:57)
[2024-02-01] MEDS: pantoprazole 40 mg SDV 80 MG IVP (07:57)
--- NOTE | 2024-02-01 07:59 | ECG_ITS ---
[facility] Test Date: 2024-02-01 Pat Name: Ida Chicas Department: Room: Gender: Female Training Development Specialist: : 1940 Requested By: Germain Han Order Number: [id number] Tori MD: Yolanda Moeller M.D. Measurements Intervals [place] Rate: 107 P: 0 DE: 0 QRS: 22 QRSD: 82 T: 28 QT: 338 QTc: 453 Interpretive Statements ATRIAL FIBRILLATION WITH RAPID VENTRICULAR RESPONSE LOW QRS VOLTAGE [QRS DEFLECTION < 0.5/1.0 mV IN LIMB/CHEST LEADS] POSSIBLE ANTERIOR MYOCARDIAL INFARCTION , PROBABLY OLD [30 ms Q WAVE IN V3/V4, OR R < 0.2 mV IN V4] Compared to ECG 02/01/2024 06:29:50 No significant changes Electronically Signed On 02-01-2024 8:40:56 CDT by Yolanda Moeller M.D. [email or web address]
--- NOTE | 2024-02-01 08:43 | P.HP_ITS ---
Providers/Chief Complaint 2 Admitting Physician: Davion Trevino MD Primary Care Provider: Derek Ramesh MD Chief Complaint: SYNCOPE History of Present Illness Ida Chicas is a 83 year old female presenting from [facility] with history of brief syncopal episode this morning when nurses set her up. At that time they were worried her heart rate was in her 30s, her oxygen saturation was low, and she was diaphoretic. She apparently has been more lethargic than usual. She has not had any cough or fever. She is normally on 2 L of oxygen, but now requiring 4 L. She denies any chest discomfort, shortness of breath, abdominal pain. Patient has a past medical history of anxiety/depression, atrial fibrillation on Coumadin, GERD, hypertension. They relate she was functioning at home until entering the shelter where she has been requiring oxygen and receiving rehabilitation. She can walk somewhat with a walker. They report her mentation is sometimes confused, which they have attributed to poor sleep at times. History is obtained somewhat from the patient but she is a poor historian. Both daughters are present and gives supplemental history. She was found to be heme positive in the emergency department with dark stool. She received a dose of metoprolol for atrial fibrillation, and blood pressure was noted to be lower. Dobutamine was ordered but her blood pressure came back up and I do not believe it was ever given. Most recent echo demonstrated normal EF. She did receive a dose of vitamin K in the emergency department. Review of Systems 2 General: Reports: 10 or more systems reviewed and unremarkable except in HPI and below Card: Denies: chest pain Resp: Denies: dyspnea GI: Denies: abdominal pain Medications/Allergies Home Medications Medication Instructions Recorded Confirmed Last Taken Type warfarin 2 mg tablet See Rx Instructions .Route .COMPLEX 11/20/23 02/01/24 11/17/23 History warfarin 3 mg tablet See Rx Instructions .Route .COMPLEX 11/20/23 02/01/24 11/19/23 History diltiazem HCl 30 mg tablet 30 mg PO Q6H PRN heart rate > 120 11/24/23 02/01/24 01/31/24 Rx #60 tabs acetaminophen 325 mg tablet 325 mg PO TID 02/01/24 02/01/24 Unknown History alprazolam 0.5 mg tablet (Xanax) 0.5 mg PO Q8H PRN Anxiety 02/01/24 02/01/24 01/30/24 History magnesium hydroxide 400 mg/5 mL 30 ml PO DAILY PRN Constipation 02/01/24 02/01/24 Unknown History oral suspension (Milk of Magnesia) pantoprazole 40 mg tablet,delayed 40 mg PO DAILY 02/01/24 02/01/24 01/31/24 History release paroxetine HCl 20 mg tablet 20 mg PO DAILY 02/01/24 02/01/24 Unknown History sodium phosphates 19 gram-7 118 ml ID DAILY PRN Constipation 02/01/24 02/01/24 Unknown History gram/118 mL enema (Fleet Enema) trazodone 50 mg tablet 50 mg PO BEDTIME 02/01/24 02/01/24 01/31/24 History Allergies Allergy/AdvReac Type Severity Reaction Status Date / Time No Known Allergies Allergy Verified 11/20/23 12:48 PFSH Acute 2 PFSH: Medical History (Updated 02/01/24 @ 08:56 by Davion Trevino MD) Depression with anxiety Hypertension GERD (gastroesophageal reflux disease) CHF (congestive heart failure) Atrial fibrillation Surgical History (Updated 02/01/24 @ 08:47 by Davion Trevino MD) History of knee surgery H/O foot surgery Family History (Updated 02/01/24 @ 08:48 by Davion Trevino MD) Other Diabetes Social History (Updated 02/01/24 @ 08:48 by Davion Trevino MD) Smoking and tobacco/nicotine status: never used tobacco/nicotine Alcohol intake: never Vitals/I&O/Wt Last Vital Signs Temp 98.2 F 02/01/24 06:24 Pulse 115 H 02/01/24 08:15 Resp 59 H 02/01/24 08:15 BP 106/49 02/01/24 08:15 Pulse Ox 94 02/01/24 08:15 01/31/24 02/01/24 02/01/24 22:59 06:59 14:59 Intake Total 51 / 51 Balance 51 / 51 Weight last 48 hrs Weight 45.359 kg Physical Exam 2 Narrative: General exam is a white female, soft-spoken but can answer few questions. No obvious distress. HEENT: Atraumatic and normocephalic. Pupils equally round. Oropharynx clear. Neck is supple no lymphadenopathy thyromegaly Cardiovascular irregular, irregular with a 2/6 systolic murmur Lungs diminished breath sounds at the bases but no crackles Abdomen is soft with positive bowel sounds. No obvious organomegaly exam was deferred Extremities no sinus clubbing. 1+ edema is present bilaterally. Cap refill brisk. Skin demonstrates some excoriations lower extremities Neuro no obvious focal deficits. Urinary Catheter Management: Cantu: Cath Placed During This Visit: yes Urinary Catheter Date of Insertion: 02/01/24 Urinary Catheter Time of Insertion: 07:37 Data 02/01/24 06:48 02/01/24 06:48 Other Labs: MCV is 124 INR 7.34 LFTs normal Baseline troponin 26 BNP 4546 Albumin 3.2 Chest x-ray by my read demonstrates bilateral pleural effusions, cardiomegaly. Initial EKG demonstrates A-fib with RVR with a heart rate around 110, normal axis, low amplitude, poor R wave progression, nonspecific ST-T wave changes Previous echo in November demonstrated a 60% EF. Urinalysis ordered but not completed A&P Assessment and plan (1) Syncope: Patient had an episode of syncope this morning This occurred with the position changes sitting up, and was likely related to some hypotension and/or A-fib. I am not confident she was bradycardic his heart rate would be difficult to obtain in this instance. Blood loss anemia is likely a contributing factor as well. Continue telemetry Hold antihypertensives Trend hemoglobin. Limited echo to check EF. (2) Acute blood loss anemia: Patient with evidence of acute blood loss anemia Repeat hemoglobin in approximately 4 hours from initial Transfuse if becomes symptomatic, or hemoglobin less than 8 in this patient with multiple comorbidities. (3) Acute GI bleeding: Patient with dark stools Protonix 80 mg IV given in the emergency department Continue 40 mg IV every 12 hours At this point manage medically. Secondary to instability of patient with other comorbidities I am not contemplating EGD at this time. Family is in agreement after discussing risks and benefits. (4) Over-anticoagulated: Patient over anticoagulated Hold Coumadin Repeat INR in the morning Vitamin K given Likely this is contributing to anemia (5) Atrial fibrillation with rapid ventricular response: Patient with A-fib with RVR on arrival She received a dose of metoprolol She has had some issues with hypotension Hold any further metoprolol and/or Cardizem. Consider amiodarone if rhythm becomes an issue. (6) CHF (congestive heart failure): Patient with evidence of CHF on her x-ray with bilateral pleural effusions. She has peripheral edema. She has hypoxic. Doubt pneumonia. Diurese, when hypotension has improved. (7) Acute encephalopathy: Family describes acute encephalopathy. Likely this is related with illness Expect this to resolve as treatment occurs. (8) Hypoxia: Patient requiring more oxygen than normal, and is hypoxic. I suspect this is secondary to his CHF. Monitor for improvement after I am able to diurese her some. Plan Multiple other medical problems as outlined in past medical history Allow natural SCDs for DVT prophylaxis. Anticoagulation contraindicated secondary to GI bleed and anemia Attestations 2 Medical Necessity Statement*: Will require greater than 2 midnight stay for evaluation and treatment of GI bleeding, anemia, A-fib with RVR, other medical issues. Critical Care Time: The high probability of a clinically significant, sudden or life threatening deterioration of the patient's [hematologic, pulmonary, cardiac, neurologic] s ystem(s) required my full and direct attention, intervention and personal management. The critical care time is as shown. This time is in addition to time spent performing any reported procedures but includes the following: [x] Data and vital sign review and interpretation [x] Patient assessment, examination and intervention [x] Documentation [x] Medication orders and management Critical Care Time (min): 57 Coding Level of Care Code Critical Care >/= 30 minutes Critical care time (in minutes): 57 The high probability of a clinically significant, sudden or life threatening deterioration, as referenced in this documentation, required my full and direct attention, intervention and personal management. The critical care time shown is in addition to time spent performing any reported separately billable procedures and includes the following: [x] Data and vital sign review and interpretation [x ] Patient assessment, examination and intervention [x] Medication orders and management [x] Patient/Family updates as able [x] Care Coordination and Documentation. Diagnoses Syncope R55 Acute blood loss anemia D62 Acute GI bleeding K92.2 Over-anticoagulated Atrial fibrillation with rapid ventricular response I48.91 CHF (congestive heart failure) I50.9 Acute encephalopathy G93.40 Hypoxia R09.02
--- NOTE | 2024-02-01 08:52 | USCV_ITS ---
Ida Chicas Age: 83 Gender: F : 1940 Exam Date: 02/01/2024 13:29 Ordering Phys: Davion Trevino MD Technologist: Exam Location[place] [facility] [place] Indication: chf BP: 120 / 58 HR: Rhythm: Sinus Technical Quality: Adequate MEASUREMENTS (Male / Female) Normal Values 2D ECHO LV Diastolic Diameter PLAX 4.0 cm 4.2 - 5.9 / 3.9 - 5.3 cm LV Systolic Diameter PLAX 3.1 cm IVS Diastolic Thickness 1.0 cm 0.6 - 1.0 / 0.6 - 0.9 cm IVS Systolic Thickness 1.4 cm LVPW Diastolic Thickness 1.0 cm 0.6 - 1.0 / 0.6 - 0.9 cm LVPW Systolic Thickness 1.3 cm LVOT Diameter 1.9 cm LV Ejection Fraction 2D Teich 46.3 % LV Ejection Fraction MOD 2C 33.3 % LV Ejection Fraction 2C AL 31.1 % LA Diameter 3.4 cm RA Systolic Volume 4C AL 43.4 ml RA Systolic Volume 4C MOD 41.8 ml IVC Diameter 2.1 cm M-MODE LA Ao Ratio MM 1.9 AV Cusp Separation MM 1.6 cm FINDINGS Left Ventricle Right Ventricle Right Atrium Left Atrium Mitral Valve Aortic Valve Tricuspid Valve Pulmonic Valve Pericardium Aorta IVC CONCLUSIONS Technically very limited quality echocardiogram because of poor ultrasonic windows. Grossly LV systolic function appears mildly reduced. Accurate comparison with prior echo cannot be done because of limited quality images. Recommend echo with contrast to better assesss wall motion abnormalities. Javon Frazier MD (Electronically Signed) Final Date: 01 Feb 2024 15:15 S
[2024-02-01 09:03] LABS: Troponin 5 2HR 26.04 ng/L (0-10); Troponin 5 2HR Delta 0.04 ABS# (0-10)
[2024-02-01] MEDS: norepinephrine 4 MG/250 ML BAG 22.5 MG IV (09:38)
[2024-02-01 09:41] LABS: Blood Urine 2+ (Negative); Glucose Urine UA Norm (Normal); Ketones Urine Negative (Negative); Nitrate Urine Negative (Negative); Protein Urine 2+ (Negative); Urine Appearance Slightly Cloudy (CLEAR); Urine Color Yellow (Yellow); pH Urine 5 (5-7)
[2024-02-01 09:42] LABS: Add Urine Culture? No; Add Urine Microscopic? YES; Amorphous Sediment Urine 3+ /hpf; Bacteria Urine TRACE /hpf; Bilirubin Urine 1+ (Negative); Leukocyte Esterase Urine Negative (Negative); RBC Urine 0-4 /hpf (0-2); Squamous Epithelial Cell Urine 0-4 /hpf (0-5); Urobilinogen Urine Neg (Negative); WBC Urine RARE /hpf (0-5)
[2024-02-01 09:54] LABS: Thyroid Stimulating Hormone 6.03 uIU/mL (0.27-4.20); Vitamin B12 1007 pg/mL (232-1245)
[2024-02-01 09:56] LABS: Folate Level 19.2 ng/mL (4.8-37.3)
[2024-02-01] MEDS: PARoxetine 20 mg Tablet PO (11:00)
--- NOTE | 2024-02-01 11:43 | ECG_ITS ---
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 Measurements Intervals [place] Rate: 105 P: 0 CA: 0 QRS: 21 QRSD: 81 T: 7 QT: 336 QTc: 444 Interpretive Statements ATRIAL FIBRILLATION WITH RAPID VENTRICULAR RESPONSE LOW QRS VOLTAGE IN EXTREMITY LEADS [QRS DEFLECTION < 0.5 mV IN LIMB LEADS] POSSIBLE ANTERIOR MYOCARDIAL INFARCTION , PROBABLY OLD [30 ms Q WAVE IN V3/V4, OR R < 0.2 mV IN V4] ABNORMAL RHYTHM ECG Compared to ECG 02/01/2024 07:59:52 No significant changes Electronically Signed On 02-01-2024 17:33:24 CDT by Yolanda Moeller M.D. [id number]
[2024-02-01 11:46] LABS: Hematocrit 26.7 % (36-47)
[2024-02-01 12:09] LABS: Troponin 5 6HR 26.35 ng/L (0-10); Troponin 5 6HR Delta 0.35 ng/L (0-12)
[2024-02-01] MEDS: albumin 25 G/100 ML BAG 60 G IV ×2 (13:00→19:47)
[2024-02-01 13:14] LABS: Lactic Sepsis W/Reflex 1.7 mmol/L (0.5-2.2)
[2024-02-01] MEDS: FUROsemide 10 mg/mL SDV 4mL 40 MG IVP (15:35)
[2024-02-01 17:48] LABS: Hematocrit 23.5 % (36-47)
[2024-02-01] MEDS: pantoprazole 40 mg SDV IVP (20:19)
[2024-02-01] MEDS: trazodone 50 mg Tablet PO (20:19)
[2024-02-01] MEDS: sodium chloride 0.9% 100 mL Bag 50 ML IV (22:45)
--- NOTE | 2024-02-01 22:47 | PC.NURSE ---
Late entry for scanning 100 ml NS to accompany blood transfusion. NS hung at 2039with 1 unit of packed RBC's on blood tubing
[2024-02-02] VITALS (37 sets, daily range): BP systolic 86–131; BP diastolic 43–97; PULSE 76–115; RESP 16–32; TEMP 36.4–36.9; O2SAT 87–99
[2024-02-02] MEDS: FUROsemide 10 mg/mL SDV 4mL 40 MG IVP ×2 (03:13→15:25)
[2024-02-02] MEDS: albumin 25 G/100 ML BAG 60 G IV ×2 (03:25→18:06)
[2024-02-02 04:15] LABS: INR 1.46 (0.8-1.2)
[2024-02-02 04:23] LABS: Alanine Aminotransferase 8 U/L (0-33); Albumin Level 4.1 g/dL (3.5-5.2); Alkaline Phosphatase 50 U/L (35-105); Aspartate Amino Transferase 13 U/L (0-32); Blood Urea Nitrogen 22 mg/dL (8-23); Carbon Dioxide 40 mmol/L (22-29); Chloride 92 mmol/L (98-107); Creatinine Clr Calc Pharmacy 45.0854; Globulin 3.6 g/dL (1.3-4.6); Glucose 80 mg/dL (65-115); Magnesium 1.9 mg/dL (1.7-2.3); Osmolality Calculated 290 mOsm/kg (285-295); Sodium 139 mmol/L (136-145); Total Protein 7.7 g/dL (6.6-8.7)
[2024-02-02 04:25] LABS: Anion Gap 11.1 (5-19); Potassium 4.1 mmol/L (3.5-5.1)
[2024-02-02 05:59] LABS: Basophils % 0.1 %; Eosinophils % 0.1 %; Hematocrit 24.6 % (36-47); Lymphocytes # 2.6 10^3/uL (0.8-4.8); Mean Corpuscular HGB Conc 31.7 g/dL (30-55); Mean Corpuscular Hemoglobin 35.9 pg (27-33); Mean Corpuscular Volume 113.4 fl (85-98); Mean Platelet Volume 11.3 fL (7.4-10.4); Neutrophils # 8.06 10^3/uL (1.8-7.7); Neutrophils % 52.7 %; Nucleated Red Blood Cells # 0.1 /100WBC; Nucleated Red Blood Cells % 0.7 %; Platelet Count 153 10^3/cmm (157-399); Red Blood Count 2.17 10^6/uL (3.85-5.65); White Blood Count 15.32 10^3/uL (3.29-11.43)
--- NOTE | 2024-02-02 07:51 | P.PN_ITS ---
Subjective 2 Subjective: More responsive than yesterday. Reports she is cold. Nurse has not noticed any bowel movements. A hematoma was found on her left posterior leg. Medications: Reviewed: Yes Vitals/I&O/Wt Last Vital Signs Temp 97.6 F 02/02/24 06:00 Pulse 98 02/02/24 07:44 Resp 19 H 02/02/24 06:00 BP 93/48 02/02/24 06:00 Pulse Ox 97 02/02/24 07:44 O2 Del Method Nasal Cannula 02/02/24 07:44 O2 Flow Rate 4 02/02/24 07:44 02/01/24 02/02/24 02/02/24 22:59 06:59 14:59 Intake Total 773.25 / 1224.25 350 / 1574.25 100 / 100 Output Total 2550 / 2550 400 / 2950 Balance -1776.75 / -1325.75 -50 / -1375.75 100 / 100 Weight last 48 hrs Weight 60.5 kg Weight 60.5 kg Weight 62.3 kg Weight 45.359 kg Physical Exam 2 Narrative: General exam is a white female, no distress, appears quicker on response. Neck is supple no lymphadenopathy thyromegaly Cardiovascular irregular, irregular with a 2/6 systolic murmur Lungs diminished breath sounds at the bases but no crackles Abdomen is soft with positive bowel sounds. No obvious organomegaly Cantu noted Extremities no sinus clubbing. 1+ edema is present bilaterally. Cap refill brisk. Hematoma posterior left knee/thigh, unchanged from nurse markings yesterday Urinary Catheter Management: Cantu: Cath Placed During This Visit: yes Reason for Continuing Indwelling Catheter: Accurate Measurement of Urinary Output in Critically Ill Patients Urinary Catheter Date of Insertion: 02/01/24 Urinary Catheter Time of Insertion: 07:37 Data 02/02/24 05:37 02/02/24 03:25 Other Labs: Echo poor quality. EF may be slightly reduced. Micro: Microbiology 02/01/24 12:15 Blood Culture - Preliminary Blood SPECIMEN COLLECTED 02/01/24 12:15 Blood Culture - Preliminary Blood SPECIMEN COLLECTED A&P Assessment and plan (1) Syncope: Patient had an episode of syncope prior to admission This occurred with the position changes sitting up, and was likely related to some hypotension and/or A-fib. I am not confident she was bradycardic his heart rate would be difficult to obtain in this instance. Blood loss anemia is likely a contributing factor as well. Continue telemetry. No pauses noted Hold antihypertensives Received 1 unit of packed red blood cells today. With hematoma, tachycardia, and other symptoms we will go ahead and transfuse 1 more unit Limited echo was not useful secondary to poor visualization. At this point we will hold off on further studies. (2) Acute blood loss anemia: Patient with evidence of acute blood loss anemia Secondary to multiple comorbidities patient was transfused yesterday, and will be transfused again today to maintain a hemoglobin above 8. (3) Acute GI bleeding: Patient with dark stools Protonix 80 mg IV given in the emergency department Continue 40 mg IV every 12 hours At this point manage medically. Secondary to instability of patient with other comorbidities I am not contemplating EGD at this time. Family is in agreement after discussing risks and benefits. (4) Over-anticoagulated: Patient over anticoagulated Hold Coumadin Repeat INR in the morning Received vitamin K Likely this is contributing to anemia INR improved at 1.46 Not a candidate for reinitiation of anticoagulation currently. (5) Atrial fibrillation with rapid ventricular response: Patient with A-fib with RVR on arrival She received a dose of metoprolol She has had some issues with hypotension Hold any further metoprolol and/or Cardizem. Initiate amiodarone 400 mg twice daily (6) CHF (congestive heart failure): Patient with evidence of CHF on her x-ray with bilateral pleural effusions. She has peripheral edema. She has hypoxic. Doubt pneumonia. Continue to diurese Albumin was added yesterday secondary to low albumin, elevated creatinine, low blood pressure. Reduce this to twice daily and continue to wean Acetazolamide was also added secondary to markedly elevated CO2. Continue this currently. (7) Acute encephalopathy: Family describes acute encephalopathy. Likely this is related with illness Expect this to resolve as treatment occurs. I believe she is likely at baseline. (8) Hypoxia: Patient requiring more oxygen than normal, and is hypoxic. I suspect this is secondary to his CHF. Monitor for improvement after I am able to diurese her some. Oxygen requirement has decreased as suspected Plan Leukocytosis. Check procalcitonin. Still doubt pneumonia. If procalcitonin is elevated consider empiric antibiotic. Multiple other medical problems as outlined in past medical history Allow natural SCDs for DVT prophylaxis. Anticoagulation contraindicated secondary to GI bleed and anemia Likely can transfer out of ICU this afternoon if continues to remain stable. Attestations 2 Medical Necessity Statement*: Needs continued hospitalization for diuresis secondary to acute diastolic heart failure, as well as transfusion for significant anemia. Diagnoses Syncope R55 Acute blood loss anemia D62 Acute GI bleeding K92.2 Over-anticoagulated Atrial fibrillation with rapid ventricular response I48.91 CHF (congestive heart failure) I50.9 Acute encephalopathy G93.40 Hypoxia R09.02 Time Spent (min) 26
[2024-02-02] MEDS: PARoxetine 20 mg Tablet PO (08:58)
[2024-02-02] MEDS: amiodarone 200 mg Tablet 400 MG PO ×2 (08:58→17:16)
[2024-02-02] MEDS: acetaZOLAMIDE 250 mg Tablet PO (08:58)
[2024-02-02] MEDS: pantoprazole 40 mg SDV IVP ×2 (08:59→20:27)
[2024-02-02 09:55] LABS: Procalcitonin 0.15 ng/mL (0-0.5)
[2024-02-02] MEDS: trazodone 50 mg Tablet PO (20:27)
[2024-02-03] VITALS (13 sets, daily range): BP systolic 92–125; BP diastolic 44–71; PULSE 96–128; RESP 16–22; TEMP 36.4–36.8; O2SAT 90–97; BMI 25.2
--- NOTE | 2024-02-03 00:32 | PC.NURSE ---
Patient reports sleeps in chair. refused to go to bed. position changed in chair with pill to wedge.
--- NOTE | 2024-02-03 01:47 | PC.NURSE ---
Report given to Karen AYOUB. Patient transported via wheelchair to room 259 bed 2- place in recliner chair with chair alarm on. Patient told this nurse not to wake up family till am about transfer. Darell Tripp aware of need to notify family in am of room/ status change.
[2024-02-03] MEDS: FUROsemide 10 mg/mL SDV 4mL 40 MG IVP (03:11)
[2024-02-03 05:26] LABS: Basophils % 0.2 %; Eosinophils # 0.1 10^3/uL (0.0-0.8); Eosinophils % 0.5 %; Hematocrit 31.7 % (36-47); Lymphocytes # 2.2 10^3/uL (0.8-4.8); Lymphocytes % 12.9 %; Mean Corpuscular HGB Conc 32.5 g/dL (30-55); Mean Corpuscular Hemoglobin 34.7 pg (27-33); Mean Corpuscular Volume 106.7 fl (85-98); Mean Platelet Volume 11.6 fL (7.4-10.4); Monocytes # 4.7 10^3/uL (0.2-0.9); Monocytes % 27.7 %; Neutrophils # 9.47 10^3/uL (1.8-7.7); Neutrophils % 55.6 %; Nucleated Red Blood Cells # 0.1 /100WBC; Nucleated Red Blood Cells % 0.5 %; Platelet Count 160 10^3/cmm (157-399); Red Blood Count 2.97 10^6/uL (3.85-5.65); White Blood Count 17.02 10^3/uL (3.29-11.43)
[2024-02-03 05:36] LABS: INR 1.37 (0.8-1.2)
[2024-02-03 05:42] LABS: Magnesium 1.7 mg/dL (1.7-2.3)
[2024-02-03] MEDS: albumin 25 G/100 ML BAG 60 G IV (06:17)
[2024-02-03] MEDS: pantoprazole 40 mg SDV IVP ×2 (07:52→21:24)
[2024-02-03] MEDS: PARoxetine 20 mg Tablet PO (07:52)
[2024-02-03] MEDS: amiodarone 200 mg Tablet 400 MG PO ×2 (07:52→18:01)
[2024-02-03] MEDS: acetaZOLAMIDE 250 mg Tablet PO (07:52)
--- NOTE | 2024-02-03 08:40 | P.PN_ITS ---
Subjective 2 Subjective: Ida reports she is cold this morning. Believes her breathing is doing okay. Medications: Reviewed: Yes Vitals/I&O/Wt Last Vital Signs Temp 97.6 F 02/03/24 08:00 Pulse 102 H 02/03/24 08:00 Resp 18 02/03/24 08:00 BP 125/71 02/03/24 08:00 Pulse Ox 95 02/03/24 08:28 O2 Del Method Nasal Cannula 02/03/24 08:28 O2 Flow Rate 3 02/03/24 08:28 02/02/24 02/03/24 02/03/24 22:59 06:59 14:59 Intake Total 450 / 1300 580 / 580 Output Total 2250 / 2250 450 / 2700 Balance -1800 / -950 -450 / -1400 580 / 580 Weight last 48 hrs Weight 60.509 kg Weight 60.5 kg Weight 60.5 kg Weight 60.5 kg Weight 62.3 kg Physical Exam 2 Narrative: General exam is a white female, no distress. Mentally alert. On 3 L of oxygen and -900 as far as fluid. Neck is supple no lymphadenopathy thyromegaly Cardiovascular irregular, irregular with a 2/6 systolic murmur Lungs diminished breath sounds at the bases but no crackles Abdomen is soft with positive bowel sounds. No obvious organomegaly Cantu noted Extremities no sinus clubbing. Trace edema is present bilaterally. Cap refill brisk. Hematoma posterior left knee/thigh, unchanged from nurse markings yesterday Urinary Catheter Management: Cantu: Cath Placed During This Visit: yes Reason for Continuing Indwelling Catheter: Other Urinary Catheter Date of Insertion: 02/01/24 Urinary Catheter Time of Insertion: 07:37 Data 02/03/24 04:45 02/02/24 03:25 Other Labs: For some reason BMP got canceled. This is now pending after I brought this to labs attention. Magnesium was normal Micro: Microbiology 02/01/24 12:15 Blood Culture - Preliminary Blood NEGATIVE TO DATE 02/01/24 12:15 Blood Culture - Preliminary Blood NEGATIVE TO DATE A&P Assessment and plan (1) Syncope: Patient had an episode of syncope prior to admission This occurred with the position changes sitting up, and was likely related to some hypotension and/or A-fib. I am not confident she was bradycardic his heart rate would be difficult to obtain in this instance. Blood loss anemia is likely a contributing factor as well. Continue telemetry. No pauses noted Hold antihypertensives Received 1 unit of packed red blood cells on admit and 1 unit on 02/01 for 2 total. Limited echo was not useful secondary to poor visualization. At this point we will hold off on further studies. She has had 2 units of packed red blood cells total. (2) Acute blood loss anemia: Patient with evidence of acute blood loss anemia She has received 2 units total and hemoglobin is 10.3 (3) Acute GI bleeding: Patient with dark stools Protonix 80 mg IV given in the emergency department Continue 40 mg IV every 12 hours At this point manage medically. Secondary to instability of patient with other comorbidities I am not contemplating EGD at this time. Family is in agreement after discussing risks and benefits. Hemoglobin has likely stabilized. Recheck CBC tomorrow. (4) Over-anticoagulated: Patient over anticoagulated Vitamin K was given. INR 1.37 today. Likely this is contributing to anemia Not a candidate for reinitiation of anticoagulation currently. (5) Atrial fibrillation with rapid ventricular response: Patient with A-fib with RVR on arrival She received a dose of metoprolol She has had some issues with hypotension Hold any further metoprolol and/or Cardizem. Continue amiodarone 400 mg twice daily. Heart rate around 100-1 10. On discharge to skilled nursing likely lower dose to 200 mg twice daily (6) CHF (congestive heart failure): Patient with evidence of CHF on her x-ray with bilateral pleural effusions. She has peripheral edema. She has hypoxic. Doubt pneumonia. Continue to diurese. Creatinine stable. Still with a little bit of fluid on board. Discontinue albumin at this point. Acetazolamide was also added secondary to markedly elevated CO2. Continue this currently. CBC, BMP and magnesium tomorrow. IV diuresis is a potentially renal toxic medication needs to be followed closely with daily lab inpatient with adjustments. Still awaiting full BMP results today with potassium and bicarbonate. (7) Acute encephalopathy: Family describes acute encephalopathy. Likely this is related with illness This has resolved. (8) Hypoxia: Patient requiring more oxygen than normal, and is hypoxic. I suspect this is secondary to his CHF. Wean as tolerated. Currently on 3 L. I believe her baseline is 2 L. Plan Leukocytosis. Procalcitonin negative. White blood cell count still increasing. Initiate Levaquin today for concern of possible secondary bacterial infection Multiple other medical problems as outlined in past medical history Allow natural SCDs for DVT prophylaxis. Anticoagulation contraindicated secondary to GI bleed and anemia Possible transfer back to nursing facility tomorrow Continue physical therapy. Attestations 2 Medical Necessity Statement*: Needs continued hospital stay for further IV diuresis with Lasix secondary to acute diastolic heart failure. Diagnoses Syncope R55 Acute blood loss anemia D62 Acute GI bleeding K92.2 Over-anticoagulated Atrial fibrillation with rapid ventricular response I48.91 CHF (congestive heart failure) I50.9 Acute encephalopathy G93.40 Hypoxia R09.02 Time Spent (min) 26
[2024-02-03 08:41] LABS: Blood Urea Nitrogen 18 mg/dL (8-23); Calcium 9.4 mg/dL (8.5-10.5); Chloride 89 mmol/L (98-107); Creatinine Clr Calc Pharmacy 44.4828; Glucose 104 mg/dL (65-115); Osmolality Calculated 296 mOsm/kg (285-295); Sodium 142 mmol/L (136-145)
[2024-02-03 08:56] LABS: Carbon Dioxide 44 mmol/L (22-29)
[2024-02-03] MEDS: lidocaine 1% 5 ML in potassium chloride premix 100 ML 52.5 ML IV (09:30)
[2024-02-03] MEDS: potassium chloride ER 20 mEq Tablet 40 MEQ PO (09:34)
--- NOTE | 2024-02-03 12:14 | PC.SOCIAL ---
IMM Updated Updated pt on IMM. No questions voiced. Provided pt a copy. Initialed, dated, & time a copy & placed in chart.
[2024-02-03] MEDS: metoprolol tartrate 1 mg/1 mL SDV 5 mL 5 MG IVP (15:44)
[2024-02-03] MEDS: metoprolol tartrate 25 mg Tablet 12.5 MG PO (18:02)
[2024-02-03] MEDS: trazodone 50 mg Tablet PO (21:25)
[2024-02-04] VITALS (9 sets, daily range): BP systolic 92–119; BP diastolic 54–78; PULSE 99–127; RESP 16–20; TEMP 36.3–36.7; O2SAT 94–98
[2024-02-04 05:28] LABS: Basophils % 0.2 %; Eosinophils % 0.1 %; Hematocrit 32.7 % (36-47); Lymphocytes % 11.5 %; Mean Corpuscular HGB Conc 31.8 g/dL (30-55); Mean Corpuscular Hemoglobin 34.4 pg (27-33); Mean Corpuscular Volume 108.3 fl (85-98); Mean Platelet Volume 11.6 fL (7.4-10.4); Monocytes # 6.5 10^3/uL (0.2-0.9); Monocytes % 37.3 %; Neutrophils % 48.7 %; Nucleated Red Blood Cells % 0.1 %; Platelet Count 152 10^3/cmm (157-399); Red Blood Count 3.02 10^6/uL (3.85-5.65); Red Cell Distribution Width 19.2 % (12.1-15.1); White Blood Count 17.47 10^3/uL (3.29-11.43)
[2024-02-04 05:47] LABS: Anion Gap 9.4 (5-19); Blood Urea Nitrogen 19 mg/dL (8-23); Calcium 9.5 mg/dL (8.5-10.5); Chloride 90 mmol/L (98-107); Creatinine Clr Calc Pharmacy 39.5403; Glucose 132 mg/dL (65-115); Magnesium 1.6 mg/dL (1.7-2.3); Osmolality Calculated 292 mOsm/kg (285-295); Potassium 3.4 mmol/L (3.5-5.1); Sodium 139 mmol/L (136-145)
[2024-02-04 06:03] LABS: Carbon Dioxide 43 mmol/L (22-29)
[2024-02-04] MEDS: levoFLOXacin 750 mg Tablet PO (06:17)
[2024-02-04] MEDS: metoprolol tartrate 25 mg Tablet 12.5 MG PO ×2 (06:18→09:16)
[2024-02-04] MEDS: potassium chloride ER 20 mEq Tablet 40 MEQ PO (07:53)
[2024-02-04] MEDS: magnesium sulfate premix 2 GM/50 ML PIGGYBACK IV (07:53)
--- NOTE | 2024-02-04 08:40 | P.PN_ITS ---
Subjective 2 Subjective: Ida reports she feels a little bit better today. Ate a little bit better. Still feels cold all the time. Denies being short of breath but now requiring 4 L. Heart rate still high. Medications: Reviewed: Yes Vitals/I&O/Wt Last Vital Signs Temp 98.0 F 02/04/24 04:00 Pulse 127 H 02/04/24 06:00 Resp 16 02/04/24 04:00 BP 108/60 02/04/24 04:00 Pulse Ox 94 02/04/24 04:00 O2 Del Method Nasal Cannula 02/04/24 04:00 O2 Flow Rate 4 02/03/24 15:29 02/03/24 02/04/24 02/04/24 22:59 06:59 14:59 Intake Total 690 / 1735 120 / 1855 Output Total 700 / 1900 200 / 2100 Balance -10 / -165 -80 / -245 Weight last 48 hrs Weight 60.509 kg Weight 60.509 kg Weight 60.509 kg Physical Exam 2 Narrative: General exam is a white female, no distress. Mentally alert. On 4 L of oxygen and -945 over the last 24 hours Neck is supple no lymphadenopathy thyromegaly Cardiovascular irregular, irregular with a 2/6 systolic murmur Lungs diminished breath sounds at the bases but no crackles Abdomen is soft with positive bowel sounds. No obvious organomegaly Cantu noted Extremities no sinus clubbing. Trace edema is present only on the left. Cap refill brisk. Hematoma posterior left knee/thigh, unchanged from nurse markings yesterday Urinary Catheter Management: Cantu: Cath Placed During This Visit: yes Reason for Continuing Indwelling Catheter: Acute Urinary Retention or Obstruction Urinary Catheter Date of Insertion: 02/01/24 Urinary Catheter Time of Insertion: 07:37 Data 02/04/24 05:08 02/04/24 05:08 A&P Assessment and plan (1) Syncope: Patient had an episode of syncope prior to admission This occurred with the position changes sitting up, and was likely related to some hypotension and/or A-fib. I am not confident she was bradycardic his heart rate would be difficult to obtain in this instance. Blood loss anemia is likely a contributing factor as well. Continue telemetry. No pauses noted Hold antihypertensives Received 1 unit of packed red blood cells on admit and 1 unit on 02/01 for 2 total. Limited echo was not useful secondary to poor visualization. At this point we will hold off on further studies. She has had 2 units of packed red blood cells total. (2) Acute blood loss anemia: Patient with evidence of acute blood loss anemia She has received 2 units total and hemoglobin is 10.3 (3) Acute GI bleeding: Patient with dark stools Hemoglobin stable. Change Protonix to p.o. At this point manage medically. Secondary to instability of patient with other comorbidities I am not contemplating EGD at this time. Family is in agreement after discussing risks and benefits. Hemoglobin has likely stabilized. Recheck CBC tomorrow. (4) Over-anticoagulated: Patient over anticoagulated Vitamin K was given. INR 1.37 02/02 Likely this is contributing to anemia Not a candidate for reinitiation of anticoagulation currently. (5) Atrial fibrillation with rapid ventricular response: Patient with A-fib with RVR on arrival She received a dose of metoprolol Currently on amiodarone. Metoprolol being added back for rate control. Heart rate still significantly elevated. Continue amiodarone 400 mg twice daily. Heart rate around 100-1 10. On discharge to residential likely lower dose to 200 mg twice daily (6) CHF (congestive heart failure): Patient with evidence of CHF on her x-ray with bilateral pleural effusions. She has peripheral edema. She has hypoxic. Doubt pneumonia. Continue to diurese. Creatinine stable. Still with a little bit of fluid on board. Discontinue albumin at this point. IV Lasix has been reduced to once daily. Acetazolamide was also added secondary to markedly elevated CO2. Continue this currently. CBC, BMP and magnesium tomorrow. IV diuresis is a potentially renal toxic medication needs to be followed closely with daily lab inpatient with adjustments. Still awaiting full BMP results today with potassium and bicarbonate. (7) Acute encephalopathy: Family describes acute encephalopathy. Likely this is related with illness This has resolved. (8) Hypoxia: Patient requiring more oxygen than normal, and is hypoxic. I suspect this is secondary to his CHF. Wean as tolerated. Currently on 4 L. Baseline requirement is 2 L.. Plan Leukocytosis. Procalcitonin negative. White blood cell count still increasing. Levaquin initiated 02/02 secondary to persistently elevated white count, concern of superimposed infection. White blood cell count still elevated. Mild hypokalemia, supplement today Hypomagnesemia, supplement today Multiple other medical problems as outlined in past medical history Allow natural SCDs for DVT prophylaxis. Anticoagulation contraindicated secondary to GI bleed and anemia Possible transfer back to nursing facility tomorrow Continue physical therapy. Attestations 2 Medical Necessity Statement*: Needs continued hospitalization for IV diuresis secondary to CHF, adjustment of medications for A-fib with RVR. Diagnoses Syncope R55 Acute blood loss anemia D62 Acute GI bleeding K92.2 Over-anticoagulated Atrial fibrillation with rapid ventricular response I48.91 CHF (congestive heart failure) I50.9 Acute encephalopathy G93.40 Hypoxia R09.02 Time Spent (min) 28
[2024-02-04] MEDS: acetaZOLAMIDE 250 mg Tablet PO (09:15)
[2024-02-04] MEDS: PARoxetine 20 mg Tablet PO (09:15)
[2024-02-04] MEDS: amiodarone 200 mg Tablet 400 MG PO ×2 (09:15→17:45)
[2024-02-04] MEDS: FUROsemide 10 mg/mL SDV 4mL 40 MG IVP (09:16)
[2024-02-04] MEDS: pantoprazole DR 40 mg Tablet PO ×2 (09:46→17:45)
--- NOTE | 2024-02-04 10:05 | PC.PHAR ---
Renal dosing of Levaquin 750mg PO daily changed to q48h due to crcl of 39 Thank you, Daja Terry [facility]
[2024-02-04] MEDS: metoprolol tartrate 25 mg Tablet PO (18:11)
--- NOTE | 2024-02-04 21:25 | PC.NURSE ---
Patient refused to wear SCD's when this nurse offered them during shift assessment
[2024-02-05] VITALS (9 sets, daily range): BP systolic 96–107; BP diastolic 50–79; PULSE 97–121; RESP 16–20; TEMP 36.5–37.2; O2SAT 92–97
[2024-02-05 05:30] LABS: Basophils % 0.1 %; Hematocrit 32.6 % (36-47); Lymphocytes # 1.8 10^3/uL (0.8-4.8); Lymphocytes % 8.2 %; Mean Corpuscular HGB Conc 31.9 g/dL (30-55); Mean Corpuscular Volume 109.8 fl (85-98); Mean Platelet Volume 11.6 fL (7.4-10.4); Monocytes # 8.8 10^3/uL (0.2-0.9); Monocytes % 39.8 %; Neutrophils # 11.05 10^3/uL (1.8-7.7); Neutrophils % 50.4 %; Nucleated Red Blood Cells % 0 %; Platelet Count 152 10^3/cmm (157-399); Red Blood Count 2.97 10^6/uL (3.85-5.65); Red Cell Distribution Width 18.7 % (12.1-15.1); White Blood Count 21.96 10^3/uL (3.29-11.43)
[2024-02-05 05:42] LABS: Anion Gap 7.7 (5-19); Blood Urea Nitrogen 27 mg/dL (8-23); Calcium 9.4 mg/dL (8.5-10.5); Chloride 91 mmol/L (98-107); Creatinine Clr Calc Pharmacy 39.5403; Glucose 146 mg/dL (65-115); Magnesium 2.2 mg/dL (1.7-2.3); Osmolality Calculated 294 mOsm/kg (285-295); Potassium 3.7 mmol/L (3.5-5.1); Sodium 138 mmol/L (136-145)
[2024-02-05 06:02] LABS: Carbon Dioxide 43 mmol/L (22-29)
[2024-02-05] MEDS: metoprolol tartrate 25 mg Tablet PO ×2 (06:27→18:04)
--- NOTE | 2024-02-05 07:44 | XR_ITS ---
WS: [id number] Exam: XR chest 1V portable [id number] Date/Time of Exam: 02/05/2024 8:05 AM Reason For Exam: hypoxia Comparison 02/01/2024. Bibasilar infiltrates have improved. Bilateral pleural effusions unchanged. Cardiac enlargement noted . The mediastinum is normal in contour. No pneumothorax. Structures are intact. XR/XR chest 1V portable [id number] IMPRESSION: 1. Cardiac enlargement with bibasal pleural effusions most likely indicating CH F. 2. Previously noted bilateral basal infiltrates show some improvement since pre vious exam. No other change.
[2024-02-05] MEDS: vancomycin 1,000 MG in sodium chloride 0.9% 250 ML 250 MG IV (08:34)
[2024-02-05] MEDS: amiodarone 200 mg Tablet 400 MG PO ×2 (08:47→18:04)
[2024-02-05] MEDS: acetaZOLAMIDE 250 mg Tablet PO (08:47)
[2024-02-05] MEDS: pantoprazole DR 40 mg Tablet PO ×2 (08:48→18:04)
[2024-02-05] MEDS: FUROsemide 10 mg/mL SDV 4mL 40 MG IVP (08:48)
[2024-02-05] MEDS: PARoxetine 20 mg Tablet PO (08:48)
--- NOTE | 2024-02-05 08:53 | PC.SOCIAL ---
IMM Updated Updated pt & daughter on IMM. No questions voiced. Provided pt a copy. Initialed, dated, & timed copy in chart.
--- NOTE | 2024-02-05 09:15 | P.PN_ITS ---
Subjective 2 Subjective: Reports she is feeling okay. Currently on 2.5 L of oxygen. Denies pain. No diarrhea, is in fact somewhat constipated. Medications: Reviewed: Yes Vitals/I&O/Wt Last Vital Signs Temp 98.4 F 02/05/24 08:00 Pulse 98 02/05/24 08:00 Resp 17 02/05/24 08:00 BP 105/64 02/05/24 08:00 Pulse Ox 96 02/05/24 08:00 O2 Del Method Nasal Cannula 02/05/24 08:00 O2 Flow Rate 4 02/04/24 20:00 02/04/24 02/05/24 02/05/24 22:59 06:59 14:59 Intake Total 60 / 590 50 / 50 Output Total 475 / 475 450 / 925 Balance -415 / 115 -450 / -335 50 / 50 Weight last 48 hrs Weight 60.509 kg Weight 60.509 kg Physical Exam 2 Narrative: General exam is a white female, no distress. Mentally alert. On 2.5 L of oxygen. -500 for the last 24 hours Neck is supple no lymphadenopathy thyromegaly Cardiovascular irregular, irregular with a 2/6 systolic murmur Lungs diminished breath sounds at the bases but no crackles Abdomen is soft with positive bowel sounds. No obvious organomegaly. No pain Cantu noted Extremities no sinus clubbing. Trace edema is present only on the left. Cap refill brisk. Hematoma posterior left knee/thigh, unchanged Urinary Catheter Management: Cantu: Cath Placed During This Visit: yes Reason for Continuing Indwelling Catheter: Required Immobilization for Trauma or Surgery or Anesthesia Urinary Catheter Date of Insertion: 02/01/24 Urinary Catheter Time of Insertion: 07:37 Data 02/05/24 04:51 02/05/24 04:51 A&P Assessment and plan (1) Syncope: Patient had an episode of syncope prior to admission This occurred with the position changes sitting up, and was likely related to some hypotension and/or A-fib. I am not confident she was bradycardic his heart rate would be difficult to obtain in this instance. Blood loss anemia is likely a contributing factor as well. Continue telemetry. No pauses noted Hold antihypertensives Received 1 unit of packed red blood cells on admit and 1 unit on 02/01 for 2 total. Limited echo was not useful secondary to poor visualization. At this point we will hold off on further studies. She has had 2 units of packed red blood cells total. (2) Acute blood loss anemia: Patient with evidence of acute blood loss anemia She has received 2 units total and hemoglobin is 10.3 From GI bleeding and/or hematoma left thigh (3) Acute GI bleeding: Patient with dark stools Hemoglobin stable. Protonix has been changed to p.o. At this point manage medically. Secondary to instability of patient with other comorbidities I am not contemplating EGD at this time. Family is in agreement after discussing risks and benefits. Hemoglobin is stable (4) Over-anticoagulated: Patient over anticoagulated Vitamin K was given. INR 1.37 02/02 Likely this is contributing to anemia Not a candidate for reinitiation of anticoagulation currently. (5) Atrial fibrillation with rapid ventricular response: Patient with A-fib with RVR on arrival She received a dose of metoprolol Currently on amiodarone. Metoprolol being added back for rate control. Heart rate now becoming controlled Continue amiodarone 400 mg twice daily. Heart rate around 100-1 10. On discharge to half-way likely lower dose to 200 mg twice daily (6) CHF (congestive heart failure): Patient with evidence of CHF on her x-ray with bilateral pleural effusions. She has peripheral edema. She has hypoxic. Doubt pneumonia. Continue to diurese. Creatinine stable. Still with a little bit of fluid on board. Discontinue albumin at this point. IV Lasix has been reduced to once daily. Acetazolamide was also added secondary to markedly elevated CO2. Continue this currently. CBC, BMP and magnesium tomorrow. IV diuresis is a potentially renal toxic medication needs to be followed closely with daily lab inpatient with adjustments. Still awaiting full BMP results today with potassium and bicarbonate. (7) Acute encephalopathy: Family describes acute encephalopathy. Likely this is related with illness This has resolved. (8) Hypoxia: Patient requiring more oxygen than normal, and is hypoxic. I suspect this is secondary to his CHF. Wean as tolerated. Now on 2.5 L. Baseline requirement is 2 L.. Plan Leukocytosis. Worsening. Procalcitonin negative when checked. White blood cell count still increasing. Levaquin initiated 02/02 secondary to persistently elevated white count, concern of superimposed infection. With white blood cell count still increasing will change to vancomycin, Zosyn. MRSA PCR. Check chest x-ray. Mild hypokalemia, resolved Hypomagnesemia, resolved Multiple other medical problems as outlined in past medical history Allow natural SCDs for DVT prophylaxis. Anticoagulation contraindicated secondary to GI bleed and anemia Not ready for transfer back to correction facility secondary to increasing white blood cell count. Antibiotics expanded. Continue physical therapy. Attestations 2 Medical Necessity Statement*: Needs continued hospitalization for expansion of antibiotic treatment secondary to increasing leukocytosis in this patient with pneumonia. Diagnoses Syncope R55 Acute blood loss anemia D62 Acute GI bleeding K92.2 Over-anticoagulated Atrial fibrillation with rapid ventricular response I48.91 CHF (congestive heart failure) I50.9 Acute encephalopathy G93.40 Hypoxia R09.02 Time Spent (min) 24
[2024-02-05] MEDS: piperacillin-tazobactam 3.375 GM in sodium chloride 0.9% (plus) 50 ML IV ×2 (11:09→18:04)
[2024-02-05] MEDS: docusate sodium 100 mg Capsule PO ×2 (11:10→18:04)
[2024-02-05] MEDS: trazodone 50 mg Tablet PO (20:33)
[2024-02-06] VITALS (7 sets, daily range): BP systolic 94–103; BP diastolic 55–62; PULSE 100–122; RESP 16–18; TEMP 36.6–36.9; O2SAT 95–97
[2024-02-06] MEDS: piperacillin-tazobactam 3.375 GM in sodium chloride 0.9% (plus) 50 ML IV ×3 (06:04→21:22)
[2024-02-06 06:08] LABS: Basophils % 0.2 %; Eosinophils % 0.1 %; Hematocrit 31.7 % (36-47); Lymphocytes # 1.8 10^3/uL (0.8-4.8); Lymphocytes % 9.5 %; Mean Corpuscular HGB Conc 31.2 g/dL (30-55); Mean Platelet Volume 11.7 fL (7.4-10.4); Monocytes % 37.2 %; Neutrophils # 9.64 10^3/uL (1.8-7.7); Neutrophils % 51.5 %; Nucleated Red Blood Cells % 0 %; Platelet Count 134 10^3/cmm (157-399); Red Blood Count 2.83 10^6/uL (3.85-5.65); Red Cell Distribution Width 18.3 % (12.1-15.1)
[2024-02-06 06:26] LABS: Alanine Aminotransferase < 5 U/L (0-33); Albumin Level 3.5 g/dL (3.5-5.2); Alkaline Phosphatase 54 U/L (35-105); Anion Gap 9.8 (5-19); Aspartate Amino Transferase 9 U/L (0-32); Blood Urea Nitrogen 28 mg/dL (8-23); Calcium 8.8 mg/dL (8.5-10.5); Chloride 94 mmol/L (98-107); Creatinine Clr Calc Pharmacy 39.5403; Globulin 3.9 g/dL (1.3-4.6); Glucose 113 mg/dL (65-115); Osmolality Calculated 298 mOsm/kg (285-295); Potassium 3.8 mmol/L (3.5-5.1); Sodium 141 mmol/L (136-145); Total Bilirubin 1.2 mg/dL (0.15-1.2); Total Protein 7.4 g/dL (6.6-8.7)
[2024-02-06 06:28] LABS: Carbon Dioxide 41 mmol/L (22-29)
[2024-02-06] MEDS: pantoprazole DR 40 mg Tablet PO ×2 (09:54→18:20)
[2024-02-06] MEDS: acetaZOLAMIDE 250 mg Tablet PO (09:54)
[2024-02-06] MEDS: PARoxetine 20 mg Tablet PO (09:54)
[2024-02-06] MEDS: amiodarone 200 mg Tablet 400 MG PO ×2 (09:54→18:20)
[2024-02-06] MEDS: docusate sodium 100 mg Capsule PO ×2 (09:55→18:20)
[2024-02-06] MEDS: vancomycin 1,000 MG in sodium chloride 0.9% 250 ML 250 MG IV (09:56)
[2024-02-06] MEDS: FUROsemide 10 mg/mL SDV 4mL 40 MG IVP (09:58)
[2024-02-06 12:00] LABS: Methicillin-Resist S.aureu PCR NOT DETECTED (NOT DETECTED)
--- NOTE | 2024-02-06 16:35 | P.PN_ITS ---
Subjective 2 Subjective: Oxygen requirement improving to 2 L/min. White blood cell count at 18,000 today. Hemoglobin at 9.9, overall stable. Medications: Reviewed: Yes Vitals/I&O/Wt Last Vital Signs Temp 98.2 F 02/06/24 15:44 Pulse 115 H 02/06/24 15:44 Resp 16 02/06/24 15:44 BP 103/62 02/06/24 15:44 Pulse Ox 97 02/06/24 15:44 O2 Del Method Nasal Cannula 02/06/24 15:44 O2 Flow Rate 2 02/06/24 15:44 02/06/24 02/06/24 02/06/24 06:59 14:59 22:59 Intake Total 170 / 880 540 / 540 Balance 170 / 480 540 / 540 Physical Exam 2 Narrative: General: chronically ill appearing lady in no acute distress, prefers to lay on recliner HEENT: PERRLA, pupils bilaterally equal and reactive, pallors not present Chest: Normal vesicular breath sounds, no added sounds, equal good air entry bilaterally CVS: S1-S2 regular, no murmurs, no tachycardia, no gallops, no rubs Abdomen: Soft, nontender, no organomegaly, bowel sounds present Neuro: No focal deficits, no facial deformity, AO x3, power 5/5 in all limbs Urinary Catheter Management: Cantu: Cath Placed During This Visit: yes Reason for Continuing Indwelling Catheter: Required Immobilization for Trauma or Surgery or Anesthesia Urinary Catheter Date of Insertion: 02/01/24 Urinary Catheter Time of Insertion: 07:37 Data 02/07/24 13:49 02/07/24 12:52 Micro: Microbiology 02/01/24 12:15 Blood Culture - Final Blood NO GROWTH AFTER 5 DAYS 02/01/24 12:15 Blood Culture - Final Blood NO GROWTH AFTER 5 DAYS A&P Assessment and plan (1) Syncope: Patient had an episode of syncope prior to admission This occurred with the position changes sitting up, and was likely related to some hypotension and/or A-fib. I am not confident she was bradycardic his heart rate would be difficult to obtain in this instance. Blood loss anemia is likely a contributing factor as well. Continue telemetry. No pauses noted Hold antihypertensives Received 1 unit of packed red blood cells on admit and 1 unit on 02/01 for 2 total. Limited echo was not useful secondary to poor visualization. At this point we will hold off on further studies. She has had 2 units of packed red blood cells total. (2) Acute blood loss anemia: Patient with evidence of acute blood loss anemia She has received 2 units total and hemoglobin is 10.3 From GI bleeding and/or hematoma left thigh (3) Acute GI bleeding: Patient with dark stools Hemoglobin stable. Protonix has been changed to p.o. At this point manage medically. Secondary to instability of patient with other comorbidities I am not contemplating EGD at this time. Family is in agreement after discussing risks and benefits. Hemoglobin is stable (4) Over-anticoagulated: Patient over anticoagulated Vitamin K was given. INR 1.37 02/02 Likely this is contributing to anemia Not a candidate for reinitiation of anticoagulation currently. (5) Atrial fibrillation with rapid ventricular response: Patient with A-fib with RVR on arrival She received a dose of metoprolol Currently on amiodarone. Metoprolol being added back for rate control. Heart rate now becoming controlled Continue amiodarone 400 mg twice daily. Heart rate around 100-1 10. [facility] to [facility] likely lower dose to 200 mg twice daily (6) CHF (congestive heart failure): Patient with evidence of CHF on her x-ray with bilateral pleural effusions. She has peripheral edema. She has hypoxic. Doubt pneumonia. Continue to diurese. Creatinine stable. Still with a little bit of fluid on board. Discontinue albumin at this point. IV Lasix has been reduced to once daily. Acetazolamide was also added secondary to markedly elevated CO2. Continue this currently. CBC, BMP and magnesium tomorrow. IV diuresis is a potentially renal toxic medication needs to be followed closely with daily lab inpatient with adjustments. Still awaiting full BMP results today with potassium and bicarbonate. (7) Acute encephalopathy: Family describes acute encephalopathy. Likely this is related with illness This has resolved. (8) Hypoxia: Patient requiring more oxygen than normal, and is hypoxic. I suspect this is secondary to his CHF. Wean as tolerated. Now on 2.5 L. Baseline requirement is 2 L.. Plan Leukocytosis. Worsening. Procalcitonin negative when checked. White blood cell count still increasing. Levaquin initiated 02/02 secondary to persistently elevated white count, concern of superimposed infection. With white blood cell count still increasing will change to vancomycin, Zosyn. MRSA PCR. Check chest x-ray. Mild hypokalemia, resolved Hypomagnesemia, resolved Multiple other medical problems as outlined in past medical history Allow natural SCDs for DVT prophylaxis. Anticoagulation contraindicated secondary to GI bleed and anemia Not ready for transfer back to [facility] facility secondary to increasing white blood cell count. Antibiotics expanded. Continue physical therapy. Plan for today; February 06, 2024: no acute interim events[place] [id number], continue abx zosyn and iv vancomycin. prefers to sleep in recliner. does not want to get back into bed. INR reversed as noted above. Hb remains stable. No active bleeding, no ezra Attestations 2 Medical Necessity Statement*: continued need for iv abx Coding Level of Care Code Acute Code for Chg Fwd Moderate MDM includes number and complexity of problems actively addressed during encounter, amount and/or complexity of data reviewed/ordered and described risk of complication, morbidity or mortality of management as documented Diagnoses Syncope R55 Acute blood loss anemia D62 Acute GI bleeding K92.2 Over-anticoagulated Atrial fibrillation with rapid ventricular response I48.91 CHF (congestive heart failure) I50.9 Acute encephalopathy G93.40 Hypoxia R09.02
[2024-02-06] MEDS: trazodone 50 mg Tablet PO (21:21)
[2024-02-07] VITALS (11 sets, daily range): BP systolic 82–106; BP diastolic 40–62; PULSE 82–106; RESP 18–20; TEMP 36.2–38.1; O2SAT 92–99
[2024-02-07] MEDS: piperacillin-tazobactam 3.375 GM in sodium chloride 0.9% (plus) 50 ML IV ×2 (04:16→19:04)
[2024-02-07] MEDS: metoprolol tartrate 25 mg Tablet PO (06:22)
[2024-02-07] MEDS: vancomycin 1,000 MG in sodium chloride 0.9% 250 ML 250 MG IV (08:26)
[2024-02-07] MEDS: pantoprazole DR 40 mg Tablet PO (08:31)
[2024-02-07] MEDS: docusate sodium 100 mg Capsule PO ×2 (08:31→17:09)
[2024-02-07] MEDS: PARoxetine 20 mg Tablet PO (08:31)
[2024-02-07] MEDS: acetaZOLAMIDE 250 mg Tablet PO (08:32)
[2024-02-07] MEDS: amiodarone 200 mg Tablet 400 MG PO ×2 (10:00→17:09)
[2024-02-07] MEDS: FUROsemide 10 mg/mL SDV 4mL 40 MG IVP (10:00)
[2024-02-07 13:40] LABS: Alanine Aminotransferase 6 U/L (0-33); Albumin Level 2.8 g/dL (3.5-5.2); Alkaline Phosphatase 67 U/L (35-105); Aspartate Amino Transferase 11 U/L (0-32); Blood Urea Nitrogen 26 mg/dL (8-23); Calcium 8.3 mg/dL (8.5-10.5); Carbon Dioxide 33 mmol/L (22-29); Chloride 92 mmol/L (98-107); Creatinine Clr Calc Pharmacy 44.4828; Globulin 4.4 g/dL (1.3-4.6); Glucose 166 mg/dL (65-115); Iron 31 ug/dL (37-145); NT Pro B Type Natriuretic Pept 2640 pg/mL (0-450); Osmolality Calculated 287 mOsm/kg (285-295); Percent Saturation 33.3 % (20-50); Sodium 134 mmol/L (136-145); Total Bilirubin 1.1 mg/dL (0.15-1.2); Total Iron Binding Capacity 93 mcg/dl; Total Protein 7.2 g/dL (6.6-8.7); Unsaturated Iron Binding 62 ug/dL (112-347); Vitamin B12 539 pg/mL (232-1245)
[2024-02-07 13:42] LABS: Anion Gap 11.8 (5-19)
[2024-02-07 13:44] LABS: Potassium 2.8 mmol/L (3.5-5.1)
[2024-02-07] MEDS: albumin 12.5 GM/250 ML VIAL IV (13:50)
[2024-02-07 14:07] LABS: Basophils % 0.1 %; Eosinophils % 0.2 %; Hematocrit 34.8 % (36-47); Lymphocytes # 1.5 10^3/uL (0.8-4.8); Lymphocytes % 9.5 %; Mean Corpuscular HGB Conc 30.5 g/dL (30-55); Mean Corpuscular Hemoglobin 34.3 pg (27-33); Mean Corpuscular Volume 112.6 fl (85-98); Mean Platelet Volume 12.2 fL (7.4-10.4); Monocytes # 5.4 10^3/uL (0.2-0.9); Monocytes % 33.6 %; Neutrophils # 8.96 10^3/uL (1.8-7.7); Neutrophils % 55.5 %; Nucleated Red Blood Cells % 0 %; Platelet Count 123 10^3/cmm (157-399); Red Blood Count 3.09 10^6/uL (3.85-5.65); Red Cell Distribution Width 18.6 % (12.1-15.1); White Blood Count 16.14 10^3/uL (3.29-11.43)
[2024-02-07 14:22] LABS: INR 1.57 (0.8-1.2)
[2024-02-07 14:24] LABS: D Dimer 0.99 ug/mLFEU (0-0.59)
[2024-02-07] MEDS: sodium chloride 0.9% 500 ML 999 ML IV (16:48)
--- NOTE | 2024-02-07 17:28 | PICC.NOTE ---
Referred to vascular access nurse for US guided IV due to poor access. 20 gauge IV started to right upper arm. IV bolus started by bedside nurse. Shortly after, site noted to begin to swell. IV stopped. New IV started to right upper arm, proximal to previous IV. Good blood return noted. Flushes without difficulty. Nurse at bedside monitoring bolus. No swelling noted at this time.
--- NOTE | 2024-02-07 17:46 | PICC.NOTE ---
Bedside nurse called and IV to left upper arm infiltrated. Dr. Glover notified of poor vascular access even with US guidance. Dr. Glover to assess and possibly place central line.
--- NOTE | 2024-02-07 18:54 | PM.ACPR ---
Procedure/Consent Time out: Time Out Performed: Yes Consent: Additional Consent Information: obtained from daughter Procedure Narrative: Right femoral CVC inserted this evening due to hypotension, need to administer IV fluids IV antibiotics. Multiple attempts to place peripheral IV lines, PICC line, midline were all unsuccessful during course of the day. Eventually right femoral CVC was inserted this evening to ensure IV access as patient has multiple medications to be administered. Acute Procedures Central Line Placement: Right Femoral: Time out performed: Yes Patient placed on monitor/pulse ox: Yes MD prep: mask, gown and gloves Central line prep: Povidone-Iodine 1%, Chlorhexidine scrub and sterile drapes applied Local anesthesia used: lidocaine 1% Amount of anesthesia used (ml): 4 Ultrasound used for placement: Yes Central line lumen inserted: triple Post procedure: sutured in place, good blood return, all ports aspirated, flushed, capped and sterile dressing applied Post procedure x-ray: other (not indicated) Patient tolerated procedure: well and no complications Complications: none Epistaxis Control: Time out performed: Yes
[2024-02-07] MEDS: sodium chloride 0.9% 250 ML IV (19:05)
[2024-02-07] MEDS: pantoprazole 40 mg SDV IVP (19:27)
--- NOTE | 2024-02-07 19:35 | PC.NURSE ---
Pt declined to wear SCDs, education provided.
[2024-02-07] MEDS: sodium chloride 0.9% 1,000 ML 50 ML IV (20:40)
--- NOTE | 2024-02-07 20:42 | PC.NURSE ---
This nurse offered patient scheduled trazodone, patient refused stating she was already sleepy. Dr. Garcia notified via [facility].
[2024-02-07] MEDS: acetaminophen 325 mg Tablet 650 MG PO (23:49)
[2024-02-08] VITALS (42 sets, daily range): BP systolic 70–139; BP diastolic 39–80; PULSE 79–136; RESP 12–39; TEMP 36.4–36.6; O2SAT 90–99
[2024-02-08] MEDS: potassium chloride ER 20 mEq Tablet 40 MEQ PO (00:24)
[2024-02-08] MEDS: ALPRAZolam 0.5 mg Tablet PO (00:24)
[2024-02-08] MEDS: piperacillin-tazobactam 3.375 GM in sodium chloride 0.9% (plus) 50 ML IV (04:14)
[2024-02-08] MEDS: pantoprazole 40 mg SDV IVP ×2 (04:14→15:17)
--- NOTE | 2024-02-08 04:30 | P.PN_ITS ---
Subjective 2 Subjective: Patient was hypotensive this morning with BP 82 sytsolic. Then received 1 Albumin, 500 cc fluid bolus and BP improved to 98/62 mmhg. Clinically appearing to be dehydrated today. Multiple attempts were made to place iv lines including peripheral lines and PICC line however these were unsuccessful. A rigth fem CVC was eventually placed this evening to allow for Iv access and continued use of IVF, and iv abx. LEukocytosis at 16K today, afberile. Appears to be dehydrated. urine output ~1.5L Medications: Reviewed: Yes Vitals/I&O/Wt Last Vital Signs Temp 97.4 F L 02/07/24 16:33 Pulse 106 H 02/07/24 16:33 Resp 19 H 02/07/24 16:33 BP 95/56 02/07/24 16:33 Pulse Ox 99 02/07/24 16:33 O2 Del Method Nasal Cannula 02/07/24 16:33 O2 Flow Rate 7 02/07/24 08:00 02/07/24 02/07/24 02/07/24 06:59 14:59 22:59 Intake Total 290 / 1360 910 / 910 120 / 1030 Output Total 1999 Balance 290 / 1360 910 / 910 -1880 / -970 Physical Exam 2 Narrative: General: chronically ill appearing lady , laying in bed, c/o feeling cold HEENT: PERRLA, pupils bilaterally equal and reactive, pallors not present Chest: Normal vesicular breath sounds, no added sounds, equal good air entry bilaterally CVS: S1-S2 regular, no murmurs, no tachycardia, no gallops, no rubs Abdomen: Soft, nontender, no organomegaly, bowel sounds present Neuro: No focal deficits, no facial deformity, AO x3, power 5/5 in all limbs Extremities: dehydarted today with dry mucus membranes, parched skin Urinary Catheter Management: Cantu: Cath Placed During This Visit: yes Reason for Continuing Indwelling Catheter: Required Immobilization for Trauma or Surgery or Anesthesia Urinary Catheter Date of Insertion: 02/01/24 Urinary Catheter Time of Insertion: 07:37 Data 02/07/24 13:49 02/07/24 12:52 A&P Assessment and plan (1) Syncope: Patient had an episode of syncope prior to admission This occurred with the position changes sitting up, and was likely related to some hypotension and/or A-fib. I am not confident she was bradycardic his heart rate would be difficult to obtain in this instance. Blood loss anemia is likely a contributing factor as well. Continue telemetry. No pauses noted Hold antihypertensives Received 1 unit of packed red blood cells on admit and 1 unit on 02/01 for 2 total. Limited echo was not useful secondary to poor visualization. At this point we will hold off on further studies. She has had 2 units of packed red blood cells total. (2) Acute blood loss anemia: Patient with evidence of acute blood loss anemia She has received 2 units total and hemoglobin is 10.3 From GI bleeding and/or hematoma left thigh (3) Acute GI bleeding: Patient with dark stools Hemoglobin stable. Protonix has been changed to p.o. At this point manage medically. Secondary to instability of patient with other comorbidities I am not contemplating EGD at this time. Family is in agreement after discussing risks and benefits. Hemoglobin is stable (4) Over-anticoagulated: Patient over anticoagulated Vitamin K was given. INR 1.37 02/02 Likely this is contributing to anemia Not a candidate for reinitiation of anticoagulation currently. (5) Atrial fibrillation with rapid ventricular response: Patient with A-fib with RVR on arrival She received a dose of metoprolol Currently on amiodarone. Metoprolol being added back for rate control. Heart rate now becoming controlled Continue amiodarone 400 mg twice daily. Heart rate around 100-1 10. On discharge to residential likely lower dose to 200 mg twice daily (6) CHF (congestive heart failure): Patient with evidence of CHF on her x-ray with bilateral pleural effusions. She has peripheral edema. She has hypoxic. Doubt pneumonia. Continue to diurese. Creatinine stable. Still with a little bit of fluid on board. Discontinue albumin at this point. IV Lasix has been reduced to once daily. Acetazolamide was also added secondary to markedly elevated CO2. Continue this currently. CBC, BMP and magnesium tomorrow. IV diuresis is a potentially renal toxic medication needs to be followed closely with daily lab inpatient with adjustments. Still awaiting full BMP results today with potassium and bicarbonate. (7) Acute encephalopathy: Family describes acute encephalopathy. Likely this is related with illness This has resolved. (8) Hypoxia: Patient requiring more oxygen than normal, and is hypoxic. I suspect this is secondary to his CHF. Wean as tolerated. Now on 2.5 L. Baseline requirement is 2 L.. Plan Leukocytosis. Worsening. Procalcitonin negative when checked. White blood cell count still increasing. Levaquin initiated 02/02 secondary to persistently elevated white count, concern of superimposed infection. With white blood cell count still increasing will change to vancomycin, Zosyn. MRSA PCR. Check chest x-ray. Mild hypokalemia, resolved Hypomagnesemia, resolved Multiple other medical problems as outlined in past medical history Allow natural SCDs for DVT prophylaxis. Anticoagulation contraindicated secondary to GI bleed and anemia Not ready for transfer back to shelter facility secondary to increasing white blood cell count. Antibiotics expanded. Continue physical therapy. Plan for today; February 07, 2024: Patient hypotensive this morning, appears to be clinically dehydrated. Hold diuretics including lasix and acetazolamide, hold metoprolol. 500 cc fluid bolus , maintainence fluids at 50 cc/hr. Gentle hydration given CHF esrlier in the admission. Currenlty appearing to be dehydrated. Leukocytosis is stable, No fever, continue empiric abx including Zosyn and vancomycin. Hb stable at 10.6 , INR has corrected, not currently on any a/c, less likely to be bleeding. Concern for possible aspiration with food noted by RN, currently on dysphagia 5 diet, check CXR. changed to dysphagia 4 in the interim. central lines placed rigth fem to allow iv access for administartion of multiple abx and fluids Attestations 2 Medical Necessity Statement*: continued admission for abx, fluids Coding Level of Care Code Acute Code for Chg Fwd High MDM includes number and complexity of problems actively addressed during encounter, amount and/or complexity of data reviewed/ordered and described risk of complication, morbidity or mortality of management as documented Diagnoses Syncope R55 Acute blood loss anemia D62 Acute GI bleeding K92.2 Over-anticoagulated Atrial fibrillation with rapid ventricular response I48.91 CHF (congestive heart failure) I50.9 Acute encephalopathy G93.40 Hypoxia R09.02
--- NOTE | 2024-02-08 04:32 | XRR_ITS ---
PROCEDURE INFORMATION: Exam: XR Chest Exam date and time: 02/08/2024 5:05 AM Age: 83 years old Clinical indication: Shortness of breath; Patient HX: Worsening SOB. Episode of aspiration yesterday. History of chf. TECHNIQUE: Imaging protocol: Radiologic exam of the chest. Views: 1 view. COMPARISON: CR XR chest 1V portable [id number] 02/05/2024 8:20 AM FINDINGS: Lungs: Bilateral interstitial/airspace disease, which has worsened when compared to the previous study,. Pleural spaces: Bilateral pleural effusions. Heart/Mediastinum: No cardiomegaly. Bones/joints: Osteopenia and degenerative change. Soft tissues: Left-sided skin fold. XR/XR chest 1V portable [id number] IMPRESSION: 1. Bilateral interstitial/airspace disease, which has worsened when compared to the previous study,. 2. Bilateral pleural effusions.
[2024-02-08 04:37] LABS: Glucose Point of Care 122 mg/dL (70-110)
--- NOTE | 2024-02-08 04:50 | PC.NURSE ---
Pt had a manual blood pressure of 76/42. This nurse notified Dr. Garcia, he ordered a 250ml bolus, albumin, and SVI test. Passive leg raise: Change in SVI = 5.8%, Dr. Garcia notified.
[2024-02-08] MEDS: sodium chloride 0.9% 250 ML IV (04:54)
[2024-02-08] MEDS: albumin 25 G/100 ML BAG 60 G IV (04:56)
[2024-02-08] MEDS: meropenem 1,000 MG in sodium chloride 0.9% (plus) 50 ML 100 MG IV ×2 (05:19→16:56)
--- NOTE | 2024-02-08 05:20 | CT_ITS ---
WS: [id number] CT CHEST, ABDOMEN AND PELVIS WITHOUT CONTRAST HISTORY: sepsis TECHNIQUE: Contiguous 5 mm axial imaging performed through the chest, abdomen and pelvis without IV c ontrast, oral contrast has been provided. Coronal and sagittal reformats chest. Coronal and sagittal reformats through the abdomen and pelvis. All CT scans at [facility] use at least one of thes e dose optimization techniques: automated exposure control; mA and/or kV adjustment per patient size (includes targeted exams where dose is matched to clinical indication); or iterative reconstruction. CONTRAST: None DLP: 651.53 mGy.cm COMPARISON: None available. Chest CT: Small layering bilateral pleural effusions. Compressive atelectasis at the lung bases by th e effusions. Groundglass hazy attenuation throughout the upper lobes. No pneumothorax. Moderate cardi ac enlargement with a small pericardial effusion versus pericardial thickening. Calcification and art ifact overlying the heart. No adenopathy identified on this unenhanced exam. Mild soft tissue edema a nd anasarca. Abdomen CT: Unenhanced imaging of the abdomen and pelvis. Hepatic and splenic granulomata. Study is c ompromised by motion. Layering sludge in the gallbladder. No adjacent inflammation. No bile duct dila tation. Atrophied pancreas is poorly visualized due to the motion artifact. No adrenal mass. Enlarged RIGHT kidney with perinephric stranding. Moderate dilatation of the central pelvis with exte nsion to the calyces. There is air in the central renal pelvis. The high-grade obstruction terminates at the UP junction. LEFT kidney is atrophied with acquired cysts. No obstruction. Moderate atherosclerosis aorta. Mild soft tissue anasarca. No GI tract obstruction. No colitis. Pelvic CT: Soft tissue anasarca. Vascular calcifications. RIGHT femoral vein line. Uterus is lobulate d with calcification. Consistent with a fibroid uterus. Narrowing of the hip joints. Degenerative changes in the lumbar spine. No destructive bone lesions. CT/[place] [id number] IMPRESSION: 1. High-grade RIGHT hydronephrosis. Calyceal dilatation and there is also air in the central renal pelvis highly suspicious for infection/emphysematous pyeli tis. High-grade obstruction appears to be at the RIGHT UP junction. 2. Diffuse soft tissue anasarca. 3. Small bilateral pleural effusions with compressive atelectasis. 4. Hazy attenuation throughout the upper lung moralez. Differential includes pn eumonitis, edema and aspiration pneumonia. 5. Sludge layering in the gallbladder. 6. Fibroid uterus.
--- NOTE | 2024-02-08 05:47 | PC.NURSE ---
Patient's manual blood pressure after 250ml fluid bolus and starting albumin was 70/42. Notified Dr. Garcia, he gave orders to transfer the patient to ICU 7. This nurse and ANITRA Galvin transferred the patient. Bedside report given to ANITRA Palafox and ANITRA Lemus. Called daughter Smiley Mars and updated her on the situation.
[2024-02-08] MEDS: norepinephrine 4 MG/250 ML BAG 7.5 MG IV (05:50)
[2024-02-08 06:19] LABS: Basophils % 0.1 %; Eosinophils # 0.1 10^3/uL (0.0-0.8); Eosinophils % 0.4 %; Hematocrit 26.9 % (36-47); Lymphocytes # 1.6 10^3/uL (0.8-4.8); Lymphocytes % 9.5 %; Mean Corpuscular HGB Conc 30.9 g/dL (30-55); Mean Corpuscular Volume 113.5 fl (85-98); Mean Platelet Volume 12.3 fL (7.4-10.4); Monocytes # 6.5 10^3/uL (0.2-0.9); Monocytes % 39.3 %; Neutrophils # 8.14 10^3/uL (1.8-7.7); Neutrophils % 49.4 %; Nucleated Red Blood Cells % 0 %; Platelet Count 105 10^3/cmm (157-399); Red Blood Count 2.37 10^6/uL (3.85-5.65); Red Cell Distribution Width 18.4 % (12.1-15.1); White Blood Count 16.48 10^3/uL (3.29-11.43)
[2024-02-08 06:43] LABS: Lactate (Lactic Acid level) 0.9 mmol/L (0.5-2.2)
[2024-02-08 06:44] LABS: Alanine Aminotransferase 6 U/L (0-33); Albumin Level 3.2 g/dL (3.5-5.2); Alkaline Phosphatase 74 U/L (35-105); Aspartate Amino Transferase 10 U/L (0-32); Blood Urea Nitrogen 23 mg/dL (8-23); Carbon Dioxide 35 mmol/L (22-29); Chloride 97 mmol/L (98-107); Globulin 3.8 g/dL (1.3-4.6); Glucose 107 mg/dL (65-115); Osmolality Calculated 290 mOsm/kg (285-295); Sodium 138 mmol/L (136-145); Total Bilirubin 1.1 mg/dL (0.15-1.2)
[2024-02-08 07:25] LABS: Vancomycin Trough 14.5 ug/mL (10-15)
[2024-02-08] MEDS: vancomycin 1,000 MG in sodium chloride 0.9% 250 ML 250 MG IV (07:55)
[2024-02-08 08:14] LABS: Adenovirus Not Detected (NOT DETECT); Chlamydia Pneumoniae Not Detected (NOT DETECT); Coronavirus 229E,HKU1,NL63,OC4 Not Detected (NOT DETECT); Human Metapneumovirus Not Detected (NOT DETECT); Human Rhinovirus/Enterovirus Not Detected (NOT DETECT); Influenza A Not Detected (NOT DETECT); Influenza A H1 Not Detected (NOT DETECT); Influenza A H1-2009 Not Detected (NOT DETECT); Influenza A H3 Not Detected (NOT DETECT); Influenza B Not Detected (NOT DETECT); Mycoplasma Pneumoniae Not Detected (NOT DETECT); Parainfluenza Virus Type 1 Not Detected (NOT DETECT); Parainfluenza Virus Type 2 Not Detected (NOT DETECT); Parainfluenza Virus Type 3 Not Detected (NOT DETECT); Parainfluenza Virus Type 4 Not Detected (NOT DETECT); Respiratory Syncytial Virus A Not Detected (NOT DETECT); Respiratory Syncytial Virus B Not Detected (NOT DETECT); SARS-COV-2 Not Detected (NOT DETECT)
[2024-02-08] MEDS: sodium chloride 0.9% 500 ML IV (09:52)
--- NOTE | 2024-02-08 18:36 | P.PN_ITS ---
Subjective 2 Subjective: Overnight she was found to be hypotensive and started on Levophed. Blood pressure stable with systolic blood pressure in 90-100's. She is still lethargic but wakes up to verbal stimuli. Denies any complaint of pain and just wants to sleep. Family at bedside, counseled and educated about the plan of care Medications: Reviewed: Yes Vitals/I&O/Wt Last Vital Signs Temp 97.8 F 02/08/24 14:00 Pulse 106 H 02/08/24 18:00 Resp 26 H 02/08/24 18:00 BP 108/71 02/08/24 18:00 Pulse Ox 97 02/08/24 18:00 O2 Del Method Nasal Cannula 02/08/24 16:30 O2 Flow Rate 2 02/08/24 12:08 02/08/24 02/08/24 02/08/24 06:59 14:59 22:59 Intake Total 122.708 / 9296.891 8879 / 1370 100 / 1470 Balance 122.708 / -37.292 1370 / 1370 100 / 1470 Weight last 48 hrs Weight 59.08 kg Physical Exam 2 Narrative: She is drowsy but responds to verbal stimuli oriented x 1 only. Chest clear to auscultation bilaterally Cardiovascular normal heart sounds no murmurs Abdomen soft nontender nondistended normal bowel sounds Extremities 1+ bilateral pitting edema present Urinary Catheter Management: Cantu: Cath Placed During This Visit: yes Reason for Continuing Indwelling Catheter: Required Immobilization for Trauma or Surgery or Anesthesia Urinary Catheter Date of Insertion: 02/01/24 Urinary Catheter Time of Insertion: 07:37 Data 02/08/24 06:07 02/08/24 06:07 Micro: Microbiology 02/08/24 06:44 Blood Culture - Preliminary Blood SPECIMEN COLLECTED 02/08/24 06:56 Blood Culture - Preliminary Blood SPECIMEN COLLECTED A&P Assessment and plan (1) Syncope: (2) Acute blood loss anemia: (3) Acute encephalopathy: (4) Acute GI bleeding: (5) Hypoxia: (6) Atrial fibrillation with rapid ventricular response: (7) CHF (congestive heart failure): Plan Patient reports remains hypertensive today, given 500 cc normal saline bolus this morning with improvement in systolic blood pressure in 100s. She is still on Levophed drip at 2 mics per minute. Continue to monitor. Acute GI bleeding- Hemoglobin still trending down from 10.6-8.3. Spoke with the family about the plan for colonoscopy, and they are still refusing for further intervention. Patient had a worsening leukocytosis and was started on IV meropenem, vancomycin for broad-spectrum coverage. She also had a CT chest/abdomen/pelvis done which showed high-grade right hydronephrosis. Calyceal dilatation and there is also air in the central renal pelvis highly suspicious for infection/emphysematous pyelitis. High-grade obstruction appears to be at the right UP junction. Diffuse soft tissue sarcoma. Small bilateral pleural effusions. Fibroid uterus, sludge layering in the gallbladder, he is a attenuation throughout the upper lung moralez. Will follow-up labs in a.m.. Spoke with the family about transfer to another facility for urology consult and intervention if needed. Family still deciding about the transfer, said they need more time to discuss with the other family members. Will follow-up on family's decision. Continue IV antibiotics for now. Continue to monitor in ICU. Possible aspiration pneumonia-will continue with current antibiotics She is on dysphagia level 4 diet Continue aspiration precautions A-fib with rate controlled-continue p.o. metoprolol and amiodarone. Attestations 2 Medical Necessity Statement*: She needs continued hospitalization for IV antibiotics for right-sided emphysematous pyelitis, monitoring for acute GI bleed and hypotension Time Spent in Patient Care: 120minutes Coding Level of Care Code Acute Code for Chg Fwd Diagnoses Syncope R55 Acute blood loss anemia D62 Acute encephalopathy G93.40 Acute GI bleeding K92.2 Hypoxia R09.02 Atrial fibrillation with rapid ventricular response I48.91 CHF (congestive heart failure) I50.9 Time Spent (min) 120
--- NOTE | 2024-02-08 19:32 | PC.NURSE ---
Dr. escobar spoke with family at bedside on treatment options including transfer to a facility with urologist. Family undecided on plan of care. At this time will continue with current plan until decisions are made. Patient is more alert verses beginning of shift, frequently calling out help me when asked patient does not remember what she needed help with. Documented wounds, multiple bruises including bruise on left leg. Patient calls out when touched, is unable to rate pain on scale and states she only hurts when being touched, turned or moved in any manner. No fever this shift, patient frequently calls out that she is cold despite multiple blankets. Aspiration precautions in place, patient unable to take PO meds this shift. One brief change due to urination approximately 300ml of urine. All wound dressings intact and in place. 2L NC throughout shift. See other documented vitals.
[2024-02-08] MEDS: acetaminophen 325 mg Tablet 650 MG PO (20:50)
[2024-02-08] MEDS: trazodone 50 mg Tablet PO (20:50)
[2024-02-09] VITALS (49 sets, daily range): BP systolic 87–126; BP diastolic 45–76; PULSE 63–144; RESP 19–38; TEMP 36.8–37.6; O2SAT 93–99; BMI 23.6
[2024-02-09] MEDS: meropenem 1,000 MG in sodium chloride 0.9% (plus) 50 ML 100 MG IV ×2 (04:40→16:34)
[2024-02-09] MEDS: pantoprazole 40 mg SDV IVP ×2 (04:40→16:34)
[2024-02-09 04:50] LABS: Basophils % 0.1 %; Eosinophils # 0.1 10^3/uL (0.0-0.8); Eosinophils % 0.3 %; Hematocrit 27.9 % (36-47); Lymphocytes # 1.6 10^3/uL (0.8-4.8); Lymphocytes % 10.8 %; Mean Corpuscular HGB Conc 31.2 g/dL (30-55); Mean Corpuscular Hemoglobin 34.8 pg (27-33); Mean Corpuscular Volume 111.6 fl (85-98); Mean Platelet Volume 12.6 fL (7.4-10.4); Monocytes # 4.9 10^3/uL (0.2-0.9); Neutrophils # 8.01 10^3/uL (1.8-7.7); Neutrophils % 54.4 %; Nucleated Red Blood Cells % 0 %; Platelet Count 127 10^3/cmm (157-399); Red Cell Distribution Width 18.5 % (12.1-15.1); White Blood Count 14.74 10^3/uL (3.29-11.43)
[2024-02-09 05:07] LABS: Anion Gap 10.3 (5-19); Blood Urea Nitrogen 16 mg/dL (8-23); Calcium 8.6 mg/dL (8.5-10.5); Carbon Dioxide 32 mmol/L (22-29); Chloride 100 mmol/L (98-107); Glucose 118 mg/dL (65-115); Osmolality Calculated 290 mOsm/kg (285-295); Potassium 3.3 mmol/L (3.5-5.1); Sodium 139 mmol/L (136-145)
[2024-02-09 05:16] LABS: Slide Review Slide Review Perform
[2024-02-09] MEDS: PARoxetine 20 mg Tablet PO (08:03)
[2024-02-09] MEDS: amiodarone 200 mg Tablet 400 MG PO ×2 (08:03→16:35)
[2024-02-09] MEDS: vancomycin 1,000 MG in sodium chloride 0.9% 250 ML 250 MG IV (08:04)
[2024-02-09] MEDS: docusate sodium 100 mg Capsule PO (08:04)
--- NOTE | 2024-02-09 16:52 | P.CONIM_ITS ---
Providers/Reason For Consult 2 Consulting Physician/Specialty*: Evita Glover MD/ Infectious disease Reason for Consult*: sepsis Requesting Physician: Mayra Foreman MD Attending Physician: Mayra Foreman MD Primary Care Provider: Derek Ramesh MD History of Present Illness History of Present Illness Ida Chicas is a 83 year old female with history of CHF, chronic A-fib, on Coumadin, who [facility] with syncopal episode. Initially it was thought to be related to bradycardia, however no bradycardia was subsequently encountered during the hospital course. She was diagnosed with pneumonia, acute encephalopathy, GI bleeding. Anticoagulation was discontinued. She received treatment with Protonix. Since she was otherwise medically unstable, EGD and colonoscopy was deferred to avoid invasive procedures. She also had evidence of CHF for which she was being treated with IV and oral diuresis. She was subsequently during the hospital course discovered to have a rising white blood cell count. Chest x-ray showed some concern for possible pneumonia therefore patient started treatment with Zosyn and vancomycin. There was some concern for aspiration additionally for which patient had been on a dysphagia diet. And spite of treatment with piperacillin/tazobactam and vancomycin, patient continued to have persistent leukocytosis. Over the weekend on Thursday (today is Thursday), patient started to develop hypotension. Initially thought to be related to overdiuresis and dehydration, however repleting fluids and albumin did not result in sustained improvement in blood pressure. Eventually she needed to be started on pressors and was moved to the ICU.. On Thursday night she had a fever for the first time at 100.6 Fahrenheit. Antibiotic treatment was broadened from piperacillin/tazobactam/vancomycin to meropenem and vancomycin. Yesterday morning, CAT scan of the chest abdomen and pelvis was completed which showed high-grade right hydronephrosis on the right side. There was calyceal dilatation and air in the central renal pelvis highly suspicious for emphysematous pyelitis. High-grade obstruction was thought to be at the right UP junction. I discussed the case with the hospitalist who took over her care on Thursday, it was recommended that patient be transferred to obtain urology assessment as patient would likely need urological intervention such as nephrostomy versus cystoscopy with stent placement depending on the level of obstruction and signs of sepsis. Patient's family is currently undecided about whether she should undergo any procedures or wanting to transfer to a different hospital. Review of Systems 2 General: Reports: 10 or more systems reviewed and unremarkable except in HPI and below Const: Denies: fever(s), chills or body aches Eyes: Denies: change in vision, blurry vision or photophobia ENMT: Reports: hoarseness; Denies: throat pain, enlarged tonsils, odynophagia or nasal congestion Card: Denies: chest pain, palpitations, irregular heart rhythm, edema, swelling of feet/ankles, lightheadedness, pre-syncope, dyspnea on exertion or orthopnea Resp: Denies: dyspnea, productive cough, non-productive cough, wheezing, stridor, pain on inspiration, change in phlegm color, hemoptysis or chest congestion GI: Denies: abdominal pain, nausea, vomiting, hematemesis, coffee ground emesis, dysphagia, heartburn, diarrhea, constipation, GI cramping, change in stool character, hematochezia or melena : Denies: flank pain, difficulty voiding, dysuria, urinary frequency, urinary urgency, urinary hesitancy or hematuria Musc: Denies: neck pain, back pain, extremity pain, joint swelling, joint warmth or deformity Neuro: Denies: headache(s), numbness in extremities, weakness in extremities, sensory changes, difficulty walking, frequent falls, dizziness, vertigo, behavioral changes, Slurred speech present or seizure-like activity Psych: Denies: anxiety, depression, suicidal ideation or homicidal ideation Endo: Denies: polyuria, polydipsia, tired all the time, cold intolerance or hot flashes Himanshu/Lymph: Denies: easy bruising or easy bleeding Medications/Allergies Home Medications Medication Instructions Recorded Confirmed Last Taken Type warfarin 2 mg tablet See Rx Instructions .Route .COMPLEX 11/20/23 02/01/24 11/17/23 History warfarin 3 mg tablet See Rx Instructions .Route .COMPLEX 11/20/23 02/01/24 11/19/23 History diltiazem HCl 30 mg tablet 30 mg PO Q6H PRN heart rate > 120 11/24/23 02/01/24 01/31/24 Rx #60 tabs acetaminophen 325 mg tablet 325 mg PO TID 02/01/24 02/01/24 Unknown History alprazolam 0.5 mg tablet (Xanax) 0.5 mg PO Q8H PRN Anxiety 02/01/24 02/01/24 01/30/24 History magnesium hydroxide 400 mg/5 mL 30 ml PO DAILY PRN Constipation 02/01/24 02/01/24 Unknown History oral suspension (Milk of Magnesia) pantoprazole 40 mg tablet,delayed 40 mg PO DAILY 02/01/24 02/01/24 01/31/24 History release paroxetine HCl 20 mg tablet 20 mg PO DAILY 02/01/24 02/01/24 Unknown History sodium phosphates 19 gram-7 118 ml ID DAILY PRN Constipation 02/01/24 02/01/24 Unknown History gram/118 mL enema (Fleet Enema) trazodone 50 mg tablet 50 mg PO BEDTIME 02/01/24 02/01/24 01/31/24 History Allergies Allergy/AdvReac Type Severity Reaction Status Date / Time No Known Allergies Allergy Verified 11/20/23 12:48 Current Medications Generic Name Dose Route Start Last Admin Trade Name Freq PRN Reason Stop Dose Admin Acetaminophen 650 mg 02/01/24 10:03 02/08/24 20:50 Acetaminophen 325 Mg Tablet PO 650 mg Q6H PRN Administration MILD PAIN Amiodarone HCl 400 mg 02/02/24 09:00 02/09/24 16:35 Amiodarone 200 Mg Tablet PO 400 mg BID JOEY Administration Docusate Sodium 100 mg 02/05/24 09:20 02/09/24 08:04 Docusate Sodium 100 Mg Capsule PO 100 mg BID JOEY Administration Furosemide 40 mg 02/04/24 09:00 02/07/24 10:00 Furosemide 10 Mg/Ml Sdv 4ml IVP 40 mg Q24H JOEY Administration Vancomycin HCl 1,000 mg/ 250 mls @ 250 mls/hr 02/05/24 08:00 02/09/24 08:04 Sodium Chloride IV 250 mls/hr Q24H JOEY Administration Meropenem 1,000 mg/ Sodium 50 mls @ 100 mls/hr 02/08/24 17:00 02/09/24 16:34 Chloride IV 100 mls/hr Q12H JOEY Administration Protocol Norepinephrine Bitartrate 4 mg in 250 mls @ 0 mls/hr 02/08/24 05:15 02/09/24 13:45 Levophed IV 0 mcg/min .Q0M JOEY 0 mls/hr Titration Protocol Per Protocol Metoprolol Tartrate 25 mg 02/04/24 19:00 02/07/24 06:22 Metoprolol Tartrate 25 Mg Tablet PO 25 mg BID@0700,1900 JOEY Administration Pantoprazole Sodium 40 mg 02/07/24 16:00 02/09/24 16:34 Pantoprazole 40 Mg Sdv IVP 40 mg Q12H JOEY Administration Paroxetine HCl 20 mg 02/01/24 10:03 02/09/24 08:03 Paroxetine 20 Mg Tablet PO 20 mg DAILY JOEY Administration Trazodone HCl 50 mg 02/01/24 21:00 02/08/24 20:50 Trazodone 50 Mg Tablet PO 50 mg BEDTIME JOEY Administration PFSH Acute 2 PFSH: Medical History Depression with anxiety Hypertension GERD (gastroesophageal reflux disease) CHF (congestive heart failure) Atrial fibrillation Surgical History History of knee surgery H/O foot surgery Family History Other Diabetes Social History Smoking and tobacco/nicotine status: never used tobacco/nicotine Alcohol intake: never Vitals/I&O/Wt Last Vital Signs Temp 98.3 F 02/09/24 04:00 Pulse 127 H 02/09/24 16:00 Resp 29 H 02/09/24 16:00 BP 108/69 02/09/24 16:00 Pulse Ox 95 02/09/24 16:00 O2 Del Method Nasal Cannula 02/09/24 10:36 O2 Flow Rate 2 02/09/24 10:36 02/09/24 02/09/24 02/09/24 06:59 14:59 22:59 Intake Total 61.25 / 2284.562 95.625 / 95.625 Balance 61.25 / 4.562 95.625 / 95.625 Weight last 48 hrs Weight 60.464 kg Weight 60.464 kg Weight 59.08 kg Physical Exam 2 Narrative: General: Lethargic, chronically ill-appearing lady in no no acute distress, seen in the ICU. HEENT: PERRLA, pallor present Chest: Normal vesicular breath sounds, no added sounds, equal good air entry bilaterally CVS: S1-S2 regular, no murmurs, no tachycardia, no gallops, no rubs Abdomen: Soft, nontender, no organomegaly, bowel sounds present Neuro: No focal deficits, no facial deformity, AO x3 Urinary Catheter Management: Cantu: Cath Placed During This Visit: yes Reason for Continuing Indwelling Catheter: Required Immobilization for Trauma or Surgery or Anesthesia Urinary Catheter Date of Insertion: 02/01/24 Urinary Catheter Time of Insertion: 07:37 Data 02/09/24 04:20 02/09/24 04:20 Other Labs: Launch?Image [facility] [address] [facility] [place] [address] CT Scan Report Signed Patient: Ida Chicas Unit #: [id number] : 1940 Age/Sex: 83 / F ADM Date: 02/01/24 Loc: ICU Room/Bed: [place] [address]: Evita Glover MD Ordering Provider/Ordering MD: Evita Glover MD Date of Service: 02/08/24 Procedure(s): CT chest [facility] [id number] Accession Number(s): [id number] Report Number: [id number] WS: [id number] CT CHEST, ABDOMEN AND PELVIS WITHOUT CONTRAST HISTORY: sepsis TECHNIQUE: Contiguous 5 mm axial imaging performed through the chest, abdomen and pelvis without IV contrast, oral contrast has been provided. Coronal and sagittal reformats chest. Coronal and sagittal reformats through the abdomen and pelvis. All CT scans at [facility] use at least one of these dose optimization techniques: automated exposure control; mA and/or kV adjustment per patient size (includes targeted exams where dose is matched to clinical indication); or iterative reconstruction. CONTRAST: None DLP: 651.53 mGy.cm COMPARISON: None available. Chest CT: Small layering bilateral pleural effusions. Compressive atelectasis at the lung bases by the effusions. Groundglass hazy attenuation throughout the upper lobes. No pneumothorax. Moderate cardiac enlargement with a small pericardial effusion versus pericardial thickening. Calcification and artifact overlying the heart. No adenopathy identified on this unenhanced exam. Mild soft tissue edema and anasarca. Abdomen CT: Unenhanced imaging of the abdomen and pelvis. Hepatic and splenic granulomata. Study is compromised by motion. Layering sludge in the gallbladder. No adjacent inflammation. No bile duct dilatation. Atrophied pancreas is poorly visualized due to the motion artifact. No adrenal mass. Enlarged RIGHT kidney with perinephric stranding. Moderate dilatation of the central pelvis with extension to the calyces. There is air in the central renal pelvis. The high-grade obstruction terminates at the UP junction. LEFT kidney is atrophied with acquired cysts. No obstruction. Moderate atherosclerosis aorta. Mild soft tissue anasarca. No GI tract obstruction. No colitis. Pelvic CT: Soft tissue anasarca. Vascular calcifications. RIGHT femoral vein line. Uterus is lobulated with calcification. Consistent with a fibroid uterus. Narrowing of the hip joints. Degenerative changes in the lumbar spine. No destructive bone lesions. CT/[place] [id number] IMPRESSION: 1. High-grade RIGHT hydronephrosis. Calyceal dilatation and there is also air in the central renal pelvis highly suspicious for infection/emphysematous pyelitis. High-grade obstruction appears to be at the RIGHT UP junction. 2. Diffuse soft tissue anasarca. 3. Small bilateral pleural effusions with compressive atelectasis. 4. Hazy attenuation throughout the upper lung moralez. Differential includes pneumonitis, edema and aspiration pneumonia. 5. Sludge layering in the gallbladder. 6. Fibroid uterus. Micro: Microbiology 02/08/24 06:44 Blood Culture - Preliminary Blood NEGATIVE TO DATE 02/08/24 06:56 Blood Culture - Preliminary Blood NEGATIVE TO DATE [facility] [address] [place] [id number] BRIANA MORALES, ASSEMBLER SEAT NAME: [facility]icas [facility] [id number] LOC: ICU U #: [id number] AGE/SX: 83/F ROOM: ICU07 R E02/01/[address]: Mayra Foreman MD : 1940 BED: 1 D IS: FAX #: STATUS: ADM IN TLOC: Spec #: [id number] Asael: 02/01/24 Status: COMP Req #: [id number] Recd: 02/01/[address]: Panchito Resendez DO Src: Blood SpDesc: Ordered: Bcult Procedure Result Verified Site Blood Culture Final 02/06/24 NO GROWTH AFTER 5 DAYS Blood Culture Preliminary (changed) 02/02/24 NEGATIVE TO DATE Blood Culture Preliminary (changed) 02/01/24 SPECIMEN COLLECTED A&P Assessment and plan (1) CHF (congestive heart failure): (2) Atrial fibrillation: (3) Atrial fibrillation with rapid ventricular response: (4) Hydronephrosis: (5) Emphysematous pyelitis: (6) Aspiration pneumonia: Plan 83-year-old lady admitted with HPI as above, eventually during course of admission continued to have persistence leukocytosis, interim development of fever. CT of the abdomen and pelvis eventually showed high-grade right hydronephrosis with emphysematous pyelitis which would explain the persistent leukocytosis in spite of being on broad-spectrum antibiotics with piperacillin tazobactam and vancomycin. Antibiotics coverage broadened to meropenem and vancomycin on February 08, 2024. Pending blood culture from February 08, 2024, previously negative from January 31 Pending urine culture Leukocytosis at 14<--18<--24 CT abdomen findings as above. currently on levophed @ 2mcg Doubt the aspiration pneumonia is contributing to the persisting leukocytosis as patient has been on appropriate broad-spectrum antimicrobials for the same. Plan: Continue broad-spectrum coverage with meropenem and vancomycin Follow-up pending cultures Patient needs a urology assessment to assess for the high-grade right hydronephrosis, may possibly need nephrostomy versus cystoscopy to relieve the obstruction. With development of pyelitis with persisting obstruction, high chance of antibiotic failure and patient not improving and spite of broad- spectrum antibiotics. Unfortunately we do not have urology services at [facility], patient would need to be transferred to an outside facility for the same. Her family is currently deciding her goals of care and if they want her to be transferred to an outside facility or if they wanted to undergo any urological procedures. I spoken to her grandchildren that are present at bedside today, they tell me that patient's daughter will be visiting her today and discussing further course of action. will follow Consult Attestations 2 Medical Necessity Statement: per admitting attending note Coding Level of Care Code Acute Code for Chg Fwd High MDM includes number and complexity of problems actively addressed during encounter, amount and/or complexity of data reviewed/ordered and described risk of complication, morbidity or mortality of management as documented Diagnoses CHF (congestive heart failure) I50.9 Atrial fibrillation I48.91 Atrial fibrillation with rapid ventricular response I48.91 Hydronephrosis N13.30 Emphysematous pyelitis N12 Aspiration pneumonia J69.0
--- NOTE | 2024-02-09 16:57 | P.PN_ITS ---
Subjective 2 Subjective: No acute overnight events noted. Patient seen at bedside this morning, drowsy but able to respond to verbal stimuli and found to be oriented x 2 Medications: Reviewed: Yes Vitals/I&O/Wt Last Vital Signs Temp 98.3 F 02/09/24 04:00 Pulse 127 H 02/09/24 16:00 Resp 29 H 02/09/24 16:00 BP 108/69 02/09/24 16:00 Pulse Ox 95 02/09/24 16:00 O2 Del Method Nasal Cannula 02/09/24 10:36 O2 Flow Rate 2 02/09/24 10:36 02/09/24 02/09/24 02/09/24 06:59 14:59 22:59 Intake Total 61.25 / 2284.562 95.625 / 95.625 Balance 61.25 / 2084.562 95.625 / 95.625 Weight last 48 hrs Weight 60.464 kg Weight 60.464 kg Weight 59.08 kg Physical Exam 2 Narrative: She is drowsy but arousable to verbal stimuli and oriented x 2 Chest clear to auscultation bilaterally Cardiovascular normal heart sounds no murmurs Abdomen soft nontender nondistended normal bowel sounds Extremities no edema noted bilateral lower extremities. But winces when trying to move her extremities. Urinary Catheter Management: Cantu: Cath Placed During This Visit: yes Reason for Continuing Indwelling Catheter: Required Immobilization for Trauma or Surgery or Anesthesia Urinary Catheter Date of Insertion: 02/01/24 Urinary Catheter Time of Insertion: 07:37 Data 02/11/24 04:30 02/11/24 04:30 Micro: Microbiology 02/08/24 06:44 Blood Culture - Preliminary Blood NEGATIVE TO DATE 02/08/24 06:56 Blood Culture - Preliminary Blood NEGATIVE TO DATE A&P Assessment and plan (1) Acute encephalopathy: (2) Acute blood loss anemia: (3) Syncope: (4) Acute GI bleeding: (5) Encephalopathy: (6) Hypoxia: (7) Atrial fibrillation with rapid ventricular response: (8) CHF (congestive heart failure): Plan Assessment and plan (1) Syncope: (2) Acute blood loss anemia: (3) Acute encephalopathy: (4) Acute GI bleeding: (5) Hypoxia: (6) Atrial fibrillation with rapid ventricular response: (7) CHF (congestive heart failure): (8) acute right emphysematous pyelitis Blood pressure stable with systolic blood pressure in 90-100's. Will try to taper Levophed. She was found to have heart rate in the 130-140s this afternoon, given history of atrial fibrillation and already on p.o. amiodarone twice a day, will give p.o. amiodarone 400 mg early dose. Give IV metoprolol 5 mg x 1 dose now. Continue metoprolol 25 mg bid. ID consult appreciated, will follow for further recommendations. Leukocytosis improving, will continue with current antibiotics IV vancomycin and meropenem for now. Family still deciding on transfer to another facility for urology consult and evaluation. Had extensive discussion with the family about the risk and benefits of transfer for further evaluation by urology. Will follow-up with the family. Attestations 2 Medical Necessity Statement*: She needs continued hospitalization for IV antibiotics for right-sided emphysematous pyelitis, hypertension and atrial fibrillation with rapid ventricular rate Time Spent in Patient Care: 35 minutes Coding Level of Care Code Acute Code for [facility] Diagnoses Acute encephalopathy G93.40 Acute blood loss anemia D62 Syncope R55 Acute GI bleeding K92.2 Encephalopathy G93.40 Hypoxia R09.02 Atrial fibrillation with rapid ventricular response I48.91 CHF (congestive heart failure) I50.9 Time Spent (min) 35
[2024-02-09] MEDS: LORazepam 2 mg/mL INJ 10 mL MDV 0.5 MG IM (17:56)
[2024-02-09] MEDS: potassium chloride premix 100 ML 25 MEQ IV (18:00)
[2024-02-09] MEDS: metoprolol tartrate 1 mg/1 mL SDV 5 mL 5 MG IVP (19:23)
[2024-02-09] MEDS: trazodone 50 mg Tablet PO (21:17)
[2024-02-09 22:34] LABS: Add Urine Microscopic? NO; Charge for UA Resulting for Rev
[2024-02-09 22:40] LABS: Bilirubin Urine Neg (Negative); Blood Urine Neg (Negative); Glucose Urine UA Norm (Normal); Ketones Urine 1+ (Negative); Leukocyte Esterase Urine Negative (Negative); Nitrate Urine Negative (Negative); Protein Urine Neg (Negative); Specific Gravity, Urine 1.015 (1.005-1.030); Sulfosalicylic Acid Urine Negative (Negative); Urine Appearance Clear (CLEAR); Urine Color Dark Yellow (Yellow); Urobilinogen Urine 1 mg/dL (Negative); pH Urine 9 (5-7)
[2024-02-10] VITALS (42 sets, daily range): BP systolic 85–118; BP diastolic 41–93; PULSE 95–151; RESP 18–42; TEMP 36.6–37.4; O2SAT 92–98; BMI 23.8
[2024-02-10 04:01] LABS: Basophils % 0.2 %; Eosinophils % 0.3 %; Hematocrit 27.5 % (36-47); Lymphocytes # 1.5 10^3/uL (0.8-4.8); Lymphocytes % 13.4 %; Mean Corpuscular HGB Conc 30.9 g/dL (30-55); Mean Corpuscular Hemoglobin 34.1 pg (27-33); Mean Corpuscular Volume 110.4 fl (85-98); Monocytes # 4.1 10^3/uL (0.2-0.9); Monocytes % 35.7 %; Neutrophils # 5.59 10^3/uL (1.8-7.7); Neutrophils % 48.8 %; Nucleated Red Blood Cells % 0 %; Platelet Count 139 10^3/cmm (157-399); Red Blood Count 2.49 10^6/uL (3.85-5.65); Red Cell Distribution Width 18.5 % (12.1-15.1); White Blood Count 11.43 10^3/uL (3.29-11.43)
[2024-02-10 04:17] LABS: Anion Gap 11.2 (5-19); Blood Urea Nitrogen 14 mg/dL (8-23); Calcium 8.7 mg/dL (8.5-10.5); Carbon Dioxide 30 mmol/L (22-29); Chloride 99 mmol/L (98-107); Creatinine Clr Calc Pharmacy 46.7892; Glucose 102 mg/dL (65-115); Osmolality Calculated 283 mOsm/kg (285-295); Potassium 4.2 mmol/L (3.5-5.1); Sodium 136 mmol/L (136-145)
[2024-02-10] MEDS: pantoprazole 40 mg SDV IVP ×2 (04:27→17:00)
[2024-02-10] MEDS: meropenem 1,000 MG in sodium chloride 0.9% (plus) 50 ML 100 MG IV ×2 (04:27→17:00)
[2024-02-10] MEDS: vancomycin 1,000 MG in sodium chloride 0.9% 250 ML 250 MG IV (08:03)
[2024-02-10] MEDS: PARoxetine 20 mg Tablet PO (08:40)
[2024-02-10] MEDS: amiodarone 200 mg Tablet 400 MG PO ×2 (08:40→17:53)
[2024-02-10] MEDS: docusate sodium 100 mg Capsule PO ×2 (08:40→17:53)
--- NOTE | 2024-02-10 09:17 | PC.SOCIAL ---
IMM Update Pg. 2 of IMM updated.Copy provided at bedside.
--- NOTE | 2024-02-10 13:00 | P.PN_ITS ---
Subjective 2 Subjective: No acute overnight events noted. Patient seen at bedside this morning, drowsy but able to respond to verbal stimuli and found to be oriented x 2 Medications: Reviewed: Yes Vitals/I&O/Wt Last Vital Signs Temp 97.8 F 02/10/24 10:00 Pulse 119 H 02/10/24 12:30 Resp 36 H 02/10/24 12:30 BP 118/80 02/10/24 12:30 Pulse Ox 95 02/10/24 12:30 O2 Del Method Nasal Cannula 02/10/24 07:53 O2 Flow Rate 2 02/10/24 07:53 02/09/24 02/10/24 02/10/24 22:59 06:59 14:59 Intake Total 620 / 715.625 290 / 1005.625 60 / 60 Output Total 275 / 275 Balance 620 / 715.625 15 / 730.625 60 / 60 Weight last 48 hrs Weight 60.963 kg Weight 60.963 kg Weight 60.464 kg Weight 60.464 kg Physical Exam 2 Narrative: She is drowsy but arousable to verbal stimuli and oriented x 2 Chest clear to auscultation bilaterally Cardiovascular normal heart sounds no murmurs Abdomen soft nontender nondistended normal bowel sounds Extremities no edema noted bilateral lower extremities. But winces when trying to move her extremities. Urinary Catheter Management: Cantu: Cath Placed During This Visit: yes Reason for Continuing Indwelling Catheter: Accurate Measurement of Urinary Output in Critically Ill Patients Urinary Catheter Date of Insertion: 02/09/24 Urinary Catheter Time of Insertion: 18:09 Data 02/10/24 03:45 02/10/24 03:45 A&P Assessment and plan (1) Acute encephalopathy: (2) Acute blood loss anemia: (3) Syncope: (4) Acute GI bleeding: (5) Encephalopathy: (6) Hypoxia: (7) Atrial fibrillation with rapid ventricular response: (8) CHF (congestive heart failure): Plan Assessment and plan (1) Syncope: (2) Acute blood loss anemia: (3) Acute encephalopathy: (4) Acute GI bleeding: (5) Hypoxia: (6) Atrial fibrillation with rapid ventricular response: (7) CHF (congestive heart failure): (8) acute right emphysematous pyelitis (9) B/L aspiration Pneumonia Blood pressure stable with systolic blood pressure in 100's. Off levophed. Still in A-fib with RVR and 100-110. Continue p.o. amiodarone and p.o. metoprolol for now. ID consult appreciated, will follow for further recommendations. Leukocytosis improving to 11.4. Hemoglobin stable at 8.5 with platelets of 139, will continue with current antibiotics IV vancomycin and meropenem for now. Blood cultures negative so far Family still deciding on transfer to another facility for urology consult and evaluation. Had extensive discussion with the family about the risk and benefits of transfer for further evaluation by urology. She is afebrile with resolving leukocyte count on current antibiotics, but given the extent of right emphysematous pyelitis, there is a concern that the infection will not respond to oral antibiotics on discharge and the patient will have exacerbation of her current infection. Hence urology consultation is critical at this time to know the duration of antibiotics and any intervention that needed to be done. Attestations 2 Medical Necessity Statement*: She needs continued hospitalization for IV antibiotics for right-sided emphysematous pyelitis, hypotension and atrial fibrillation with rapid ventricular rate Time Spent in Patient Care: 30 minutes Coding Level of Care Code Acute Code for [facility] Fwd Diagnoses Acute encephalopathy G93.40 Acute blood loss anemia D62 Syncope R55 Acute GI bleeding K92.2 Encephalopathy G93.40 Hypoxia R09.02 Atrial fibrillation with rapid ventricular response I48.91 CHF (congestive heart failure) I50.9
[2024-02-10] MEDS: trazodone 50 mg Tablet PO (19:48)
[2024-02-10] MEDS: acetaminophen 325 mg Tablet 650 MG PO (19:50)
[2024-02-10] MEDS: lanolin oint 7 gm 1 APPLIC TOPICAL (21:08)
[2024-02-11] VITALS (30 sets, daily range): BP systolic 81–132; BP diastolic 45–101; PULSE 100–134; RESP 17–40; TEMP 36.1–37; O2SAT 93–98
[2024-02-11] MEDS: meropenem 1,000 MG in sodium chloride 0.9% (plus) 50 ML 100 MG IV ×2 (03:51→17:55)
[2024-02-11] MEDS: pantoprazole 40 mg SDV IVP ×2 (03:52→16:17)
[2024-02-11 04:58] LABS: Basophils % 0.2 %; Eosinophils % 0.1 %; Hematocrit 26.2 % (36-47); Lymphocytes # 1.3 10^3/uL (0.8-4.8); Lymphocytes % 13.8 %; Mean Corpuscular HGB Conc 31.3 g/dL (30-55); Mean Corpuscular Hemoglobin 34.3 pg (27-33); Mean Corpuscular Volume 109.6 fl (85-98); Mean Platelet Volume 12.1 fL (7.4-10.4); Monocytes # 3.6 10^3/uL (0.2-0.9); Monocytes % 37.8 %; Neutrophils # 4.44 10^3/uL (1.8-7.7); Neutrophils % 46.6 %; Nucleated Red Blood Cells % 0 %; Platelet Count 140 10^3/cmm (157-399); Red Blood Count 2.39 10^6/uL (3.85-5.65); Red Cell Distribution Width 18.4 % (12.1-15.1); White Blood Count 9.54 10^3/uL (3.29-11.43)
[2024-02-11 05:15] LABS: Blood Urea Nitrogen 13 mg/dL (8-23); Calcium 8.6 mg/dL (8.5-10.5); Carbon Dioxide 32 mmol/L (22-29); Chloride 102 mmol/L (98-107); Creatinine Clr Calc Pharmacy 46.9571; Glucose 99 mg/dL (65-115); Osmolality Calculated 290 mOsm/kg (285-295); Sodium 140 mmol/L (136-145)
[2024-02-11] MEDS: vancomycin 1,000 MG in sodium chloride 0.9% 250 ML 250 MG IV (09:56)
[2024-02-11] MEDS: amiodarone 200 mg Tablet 400 MG PO ×2 (09:56→18:03)
[2024-02-11] MEDS: metoprolol succinate ER (24 HR) 25 mg Tablet 12.5 MG PO ×2 (09:56→18:02)
[2024-02-11] MEDS: docusate sodium 100 mg Capsule PO ×2 (09:56→18:03)
[2024-02-11] MEDS: PARoxetine 20 mg Tablet PO (09:56)
--- NOTE | 2024-02-11 11:54 | P.PN_ITS ---
Subjective 2 Subjective: infectious disease progress note chart reviewed Patient continues to be in ICU In a fib with RVR HR 130s Off pressors since 02/08 Blood and urine cx negative thus far from 02/07, however taken on several days of abx leukocytosis resolved Medications: Reviewed: Yes Vitals/I&O/Wt Last Vital Signs Temp 97.1 F L 02/11/24 06:00 Pulse 131 H 02/11/24 09:31 Resp 21 H 02/11/24 06:00 BP 87/46 02/11/24 06:00 Pulse Ox 95 02/11/24 09:31 O2 Del Method Nasal Cannula 02/11/24 09:31 O2 Flow Rate 2 02/11/24 09:31 02/10/24 02/11/24 02/11/24 22:59 06:59 14:59 Intake Total 470 / 810 50 / 860 50 / 50 Output Total 700 / 700 300 / 1000 Balance -230 / 110 -250 / -140 50 / 50 Weight last 48 hrs Weight 63.458 kg Weight 63.458 kg Weight 60.963 kg Weight 60.963 kg Physical Exam 2 Narrative: patient not examined. Chart reviewed and care plan discussed with primary team Urinary Catheter Management: Cantu: Cath Placed During This Visit: yes Reason for Continuing Indwelling Catheter: Accurate Measurement of Urinary Output in Critically Ill Patients Urinary Catheter Date of Insertion: 02/09/24 Urinary Catheter Time of Insertion: 18:09 Data 02/11/24 04:30 02/11/24 04:30 Micro: Microbiology 02/09/24 22:26 Urine Culture - Preliminary Urine Catheterized A&P Assessment and plan (1) Hydronephrosis: (2) Emphysematous pyelitis: (3) Acute blood loss anemia: (4) Acute GI bleeding: (5) Atrial fibrillation with rapid ventricular response: Plan 83-year-old lady admitted with GI bleeding, A fib with RVR,CHF exacerbation and pneumonis eventually during course of admission continued to have persistence leukocytosis, interim development of fever. CT of the abdomen and pelvis eventually showed high-grade right hydronephrosis with emphysematous pyelitis on 02/07 which would explain the persistent leukocytosis in spite of being on broad- spectrum antibiotics with piperacillin tazobactam and vancomycin previously. Antibiotics coverage broadened to meropenem and vancomycin on February 08, 2024. Blood cx from 02/07 and admission negative thus far , however taken on many days of abx urine culture negative thus far , taken on abx Leukocytosis at 9<--14<--18<--24 CT abdomen findings as above. off pressors now Plan: Continue broad-spectrum coverage with meropenem and vancomycin while remains inpatient Follow-up pending cultures Patient needs a urology assessment to assess for the high-grade right hydronephrosis, may possibly need nephrostomy versus cystoscopy to relieve the obstruction. With development of pyelitis with persisting obstruction, high chance of antibiotic failure and patient not improving and spite of broad- spectrum antibiotics. Currently appears to have stabilized with regards to leukocytosis and fever, reduced pressor support, however BP continues to be soft, she is persistently tachycardic If patient's family is not interested in further urology assessment or transfer or procedures to relieve obstrcution, will plan on completing 14 days of iv abx for treatment of pyelitis. Will likely choose iv ertapenem 1gm daily of cx remain unrevealing. recommend repeat imaging in 2 weeks, sooner if deteriorates clinically High chance of abx failure and recurrence without urological intervention will follow Attestations 2 Medical Necessity Statement*: per admitting attending note Coding Level of Care Code Acute Code for [facility] Fwd Diagnoses Hydronephrosis N13.30 Emphysematous pyelitis N12 Acute blood loss anemia D62 Acute GI bleeding K92.2 Atrial fibrillation with rapid ventricular response I48.91
--- NOTE | 2024-02-11 12:31 | P.PN_ITS ---
Subjective 2 Subjective: No acute overnight events noted. She is doing well this morning no new complaints. Medications: Reviewed: Yes Vitals/I&O/Wt Last Vital Signs Temp 98.3 F 02/11/24 07:00 Pulse 116 H 02/11/24 11:00 Resp 28 H 02/11/24 11:00 BP 132/76 02/11/24 11:00 Pulse Ox 97 02/11/24 11:00 O2 Del Method Nasal Cannula 02/11/24 10:00 O2 Flow Rate 2 02/11/24 10:00 02/10/24 02/11/24 02/11/24 22:59 06:59 14:59 Intake Total 470 / 810 50 / 860 550 / 550 Output Total 700 / 700 300 / 1000 Balance -230 / 110 -250 / -140 550 / 550 Weight last 48 hrs Weight 63.458 kg Weight 63.458 kg Weight 60.963 kg Weight 60.963 kg Physical Exam 2 Narrative: She is alert awake and oriented x 2 Chest clear to auscultation bilaterally Cardiovascular normal heart sounds no murmurs Abdomen soft nontender nondistended normal bowel sounds Extremities no edema noted bilateral lower extremities. But winces when trying to move her extremities. Urinary Catheter Management: Cantu: Cath Placed During This Visit: yes Reason for Continuing Indwelling Catheter: Accurate Measurement of Urinary Output in Critically Ill Patients Urinary Catheter Date of Insertion: 02/09/24 Urinary Catheter Time of Insertion: 18:09 Data 02/11/24 04:30 02/11/24 04:30 Micro: Microbiology 02/09/24 22:26 Urine Culture - Preliminary Urine Catheterized A&P Assessment and plan (1) Acute encephalopathy: (2) Acute blood loss anemia: (3) Syncope: (4) Acute GI bleeding: (5) Encephalopathy: (6) Hypoxia: (7) Atrial fibrillation with rapid ventricular response: (8) CHF (congestive heart failure): (9) Aspiration pneumonia: (10) Emphysematous pyelitis: Plan Assessment and plan (1) Syncope: (2) Acute blood loss anemia: (3) Acute encephalopathy: (4) Acute GI bleeding: (5) Hypoxia: (6) Atrial fibrillation with rapid ventricular response: (7) CHF (congestive heart failure): (8) acute right emphysematous pyelitis (9) B/L aspiration Pneumonia Blood pressure stable with systolic blood pressure in 100's. Off levophed. Still in A-fib with RVR and 100-110. Continue p.o. amiodarone and p.o. metoprolol for now. ID consult appreciated, will follow for further recommendations. Leukocytosis resolved. Hemoglobin stable at 8.2, will continue with current antibiotics IV vancomycin and meropenem for now. Blood cultures negative so far Had extensive discussion with the family about the risk and benefits of transfer for further evaluation by urology. She is afebrile with resolving leukocyte count on current antibiotics, but given the extent of right emphysematous pyelitis, there is a concern that the infection will not respond to oral/IV antibiotics on discharge and the patient will have exacerbation of her current infection. Hence urology consultation is critical at this time to know the duration of antibiotics and any intervention that needed to be done. Since family is refusing for transfer to another facility for urology consultation, will plan on discharge with IV antibiotics IV ertapenem 1 g daily for 2 weeks for now with repeat labs and repeat CT abdomen pelvis in 2 weeks or early if clinically deteriorated. ID input appreciated. Social work to follow-up for discharge planning Attestations 2 Medical Necessity Statement*: She is here for IV antibiotics and anticipate discharge planning in 24 hours Time Spent in Patient Care: 20 minutes Coding Level of Care Code Acute Code for [facility] Fwd Diagnoses Acute encephalopathy G93.40 Acute blood loss anemia D62 Syncope R55 Acute GI bleeding K92.2 Encephalopathy G93.40 Hypoxia R09.02 Atrial fibrillation with rapid ventricular response I48.91 CHF (congestive heart failure) I50.9 Aspiration pneumonia J69.0 Emphysematous pyelitis N12 Time Spent (min) 20
--- NOTE | 2024-02-11 14:02 | XR_ITS ---
WS: [id number] XR chest 1V portable [id number] REASON FOR EXAM: Post PICC insertion FINDINGS: Left arm PICC line placement the PICC line appears to have doubled on itself in the innominate vein. This was discussed with the PICC line team. It was recommended to be pulled back approximately 6 cm a nd then attempt to readvance. The second image was performed which demonstrated the PICC line has been retracted and the tip was in a position consistent with the innominate vein however PICC line team was unable to advance the PICC line beyond this position. XR/XR chest 1V portable [id number] IMPRESSION: Left arm PICC line placement which could not be advanced beyond the mid innomin ate vein.
--- NOTE | 2024-02-11 15:53 | PICC.NOTE ---
Attempted PICC to left arm. Very difficult to advance catheter after access. Radiologist reads tip of catheter in an innominate vein, inappropriate for use. States it would be very complex to reposition correctly. Line dc'd. Dr. Foreman notified. Plan made to attempt PICC again tomorrow morning. If unsuccessful, patient will be discharged on IM antibiotics.
--- NOTE | 2024-02-11 19:18 | PC.NURSE ---
Shift summary: Pt rested in bed throughout the shift. She would allow staff to lift her/scoot her up in bed but she refused turning. She remains on her home O2 amount of 2lpm/NC. Afib noted on monitor, rates of 100-135. Her Bp have been adequate. She calls out frequently Help me , at times she cannot remember why she called out. Other times she wants her face scratched or a sip. She stated she could not lift her arms to get her own sips. She can with minimal assistance. She mostly just does not want to, she stated her arms are stiff and sore. We discussed her edematous arms, how that plus the stiffness would improve with more movement. She needs much encouragement and coaxing. During meals she stated she would not eat unless someone helped her. She ate at the most 50% of her trays, she would ask for something sweet. Edema noted on extremities. Left is greater than right. Right Upper arm IV removed today. She still has the CVL in her right groin, it is patent with good blood return. PICC attempted this afternoon, on her left arm, unsuccessful. Deidra Sánchez RN to try again in am. She had 450 dark yellow urine output. NO Bm noted this shift.
--- NOTE | 2024-02-11 19:37 | PC.NURSE ---
Pt has called out Help me 5 times during this nurse writing shift summary. Each time she has asked for her sleeping pill for the night and a drink of water. A couple of those times the night nurse JUST left the room and she would call out again.
[2024-02-11] MEDS: acetaminophen 325 mg Tablet 650 MG PO (20:03)
[2024-02-11] MEDS: trazodone 50 mg Tablet PO (20:03)
[2024-02-12] VITALS (15 sets, daily range): BP systolic 88–120; BP diastolic 37–88; PULSE 94–121; RESP 18–35; TEMP 36.6; O2SAT 93–98
[2024-02-12] MEDS: meropenem 1,000 MG in sodium chloride 0.9% (plus) 50 ML 100 MG IV (04:01)
[2024-02-12] MEDS: pantoprazole 40 mg SDV IVP (04:01)
[2024-02-12 04:57] LABS: Basophils % 0.1 %; Eosinophils % 0.2 %; Hematocrit 28.8 % (36-47); Lymphocytes # 1.4 10^3/uL (0.8-4.8); Lymphocytes % 15.4 %; Mean Corpuscular HGB Conc 31.3 g/dL (30-55); Mean Corpuscular Hemoglobin 34.4 pg (27-33); Mean Corpuscular Volume 109.9 fl (85-98); Mean Platelet Volume 11.8 fL (7.4-10.4); Monocytes # 3.3 10^3/uL (0.2-0.9); Monocytes % 36.1 %; Neutrophils # 4.31 10^3/uL (1.8-7.7); Neutrophils % 46.8 %; Nucleated Red Blood Cells % 0 %; Platelet Count 167 10^3/cmm (157-399); Red Blood Count 2.62 10^6/uL (3.85-5.65); Red Cell Distribution Width 18.3 % (12.1-15.1); White Blood Count 9.22 10^3/uL (3.29-11.43)
[2024-02-12 05:22] LABS: Anion Gap 9.3 (5-19); Blood Urea Nitrogen 12 mg/dL (8-23); Calcium 9.1 mg/dL (8.5-10.5); Carbon Dioxide 31 mmol/L (22-29); Chloride 100 mmol/L (98-107); Glucose 102 mg/dL (65-115); Osmolality Calculated 282 mOsm/kg (285-295); Potassium 4.3 mmol/L (3.5-5.1); Sodium 136 mmol/L (136-145)
--- NOTE | 2024-02-12 07:17 | XR_ITS ---
WS: [id number] XR chest 1V portable [id number] REASON FOR EXAM: Post PICC insertion FINDINGS: Right arm PICC line placement. The tip of the right arm PICC line is in the mid superior vena cava. The position of the PICC line was discussed over the phone with the medical transcription radiology and PICC t eam at 8:06 a.m. XR/XR chest 1V portable [id number] IMPRESSION: Right arm PICC line with position as above.
[2024-02-12] MEDS: amiodarone 200 mg Tablet 400 MG PO (08:29)
[2024-02-12] MEDS: docusate sodium 100 mg Capsule PO (08:29)
[2024-02-12] MEDS: metoprolol succinate ER (24 HR) 25 mg Tablet 12.5 MG PO (08:29)
[2024-02-12] MEDS: vancomycin 1,000 MG in sodium chloride 0.9% 250 ML 250 MG IV (08:29)
--- NOTE | 2024-02-12 08:30 | PICC.NOTE ---
Single lumen PICC placed to right basilic vein. Referred to vascular access nurse for PICC placement due to need for IV antibiotics. Risks and benefits discussed and informed consent obtained from patient daughter Smiley via phone. Attempted PICC line 02/11/24 on left side with no success. Right arm assessed today with right brachial vein measuring 4.0 mm, straight, and apparent best choice for placement. Using sterile technique and MST, right brachial vein accessed x 1 stick. Mid-arm circumference measured 10 cm from right AC 26 cm. Trimmed cath 34 cm with 0 cm external length noted. CXR shows tip in SVC, in good position for use per radiologist. Line secured with stat-lock. Insertion site covered with Biopatch and TSM. Report given to bedside nurse, ANITRA Sauer.
[2024-02-12] MEDS: PARoxetine 20 mg Tablet PO (08:59)
--- NOTE | 2024-02-12 09:43 | PC.SOCIAL ---
IMM Update Pg. 2 of IMM Updated. Copy provided at bedside. Attempted to reach patient's daughter at this time over the phone, unable to reach.
--- NOTE | 2024-02-12 11:40 | PM.DCS ---
Discharge Providers Date of Admission: 02/01/24 08:48 Date of Discharge: February 12, 2024 Attending Provider at Admission: Davion Trevino MD Attending Provider at Discharge: Mayra Foreman MD Primary Care Provider: Derek Ramesh MD Diagnoses at Discharge Discharge Diagnosis (1) Acute encephalopathy: Status: Acute (2) Acute blood loss anemia: Status: Acute (3) Syncope: Status: Acute (4) Acute GI bleeding: Status: Acute (5) Encephalopathy: Status: Acute (6) Hypoxia: Status: Acute (7) Atrial fibrillation with rapid ventricular response: Status: Acute (8) CHF (congestive heart failure): Status: Acute Reason for Visit Reason for Visit: SYNCOPE Brief History: 83 year old female presenting from [facility] with history of brief syncopal episode this morning when nurses set her up. At that time they were worried her heart rate was in her 30s, her oxygen saturation was low, and she was diaphoretic. She apparently has been more lethargic than usual. She has not had any cough or fever. She is normally on 2 L of oxygen, but now requiring 4 L. She denies any chest discomfort, shortness of breath, abdominal pain. Patient has a past medical history of anxiety/depression, atrial fibrillation on Coumadin, GERD, hypertension. They relate she was functioning at home until entering the shelter where she has been requiring oxygen and receiving rehabilitation. She can walk somewhat with a walker. They report her mentation is sometimes confused, which they have attributed to poor sleep at times. History is obtained somewhat from the patient but she is a poor historian. Both daughters are present and gives supplemental history. She was found to be heme positive in the emergency department with dark stool. She received a dose of metoprolol for atrial fibrillation, and blood pressure was noted to be lower. Dobutamine was ordered but her blood pressure came back up and I do not believe it was ever given. Most recent echo demonstrated normal EF. She did receive a dose of vitamin K in the emergency department. Hospital Course Hospital Course Ms. Chicas was initially admitted for pneumonia and congestive heart failure. She was started on IV diuresis and creatinine remained stable. During her stay she was found to have acute blood loss anemia but family refused for colonoscopy or further workup for GI bleed. She was also found to be in A-fib with RVR and was started on amiodarone p.o. 400 mg twice daily. During her stay she had a worsening leukocytosis and was started on broad-spectrum antibiotics IV vancomycin and IV meropenem. Her leukocytosis started improving, she was doing well, afebrile and asymptomatic. She had an episode of hypotension, was transferred to ICU for IV pressors. She has been off Levophed for the last 3 days with systolic blood pressure in 90s. she had 2 units of PRBC transfusion for anemia. She had a right femoral line for IV access . 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 Plan was to transfer her to another facility for urology consultation but family refused for transfer. In absence of urology evaluation and subsequent intervention for acute emphysematous pyelitis, there is a high chance of antibiotic failure and recurrence of infection with worsening of her current condition. Had an extensive discussion with the family about the benefits and risk of urology evaluation and subsequent intervention but family consistently refusing for transfer. After discussion with ID, plan is to give her IV antibiotics ertapenem 1 g daily for 10 days, to finish total 2 weeks of IV antibiotics. She received a PICC line for long-term antibiotics . She needs repeat CT abdomen pelvis in 2 weeks or early if he deteriorates, for evaluation of resolution of right emphysematous pyelitis. She is hemodynamically stable, afebrile, respiratory owens stable on supplemental oxygen saturating more than 90%. Will discharge her to subacute nursing facility for further care and IV antibiotics. Her anticoagulation warfarin is discontinued due to history of GI bleed, risk explained to the family about absence of anticoagulation. Physical Exam Narrative: She is alert awake and oriented x 2 Chest clear to auscultation bilaterally Cardiovascular normal heart sounds no murmurs Abdomen soft nontender nondistended normal bowel sounds Extremities no edema noted bilateral lower extremities. But winces when trying to move her extremities. Urinary Catheter Management: Cantu: Cath Placed During This Visit: yes Reason for Continuing Indwelling Catheter: Accurate Measurement of Urinary Output in Critically Ill Patients Urinary Catheter Date of Insertion: 02/09/24 Urinary Catheter Time of Insertion: 18:09 Discharge Data Studies Completed and Pending Completed Studies During Hospitalization Category Date Time Status CT chest abdomen pelvis [[place] [id number] Cat Scan 02/08/24 05:20 Completed ] Routine CXRP [XR chest 1V portable [id number]] Routine Exams 02/08/24 04:32 Completed CXRP [XR chest 1V portable [id number]] Routine Exams 02/11/24 14:02 Completed CXRP [XR chest 1V portable [id number]] Routine Exams 02/12/24 07:17 Completed XR chest 1V portable [id number] Routine Exams 02/05/24 07:44 Completed XR chest 1V portable [id number] Stat Exams 02/01/24 06:29 Completed CV. echo limited [id number] Routine Ultrasound 02/01/24 08:52 Completed Pending at discharge Category Date Time Status Blood Culture Stat Lab 02/08/24 06:44 Results Fecal Occult Blood [Immunochemical Fecal OCB] Routine Lab 02/01/24 07:07 Ordered Sputum Culture and Gram Stain Routine Lab 02/05/24 07:44 Uncollected Sputum Culture and Gram Stain Stat Lab 02/07/24 12:12 Uncollected Urine Culture Stat Lab 02/09/24 22:26 Results Radiology Impressions Chest/Abdomen/Pelvis CT 02/08/24 05:20 IMPRESSION: 1. High-grade RIGHT hydronephrosis. Calyceal dilatation and there is also air in the central renal pelvis highly suspicious for infection/emphysematous pyelitis. High-grade obstruction appears to be at the RIGHT UP junction. 2. Diffuse soft tissue anasarca. 3. Small bilateral pleural effusions with compressive atelectasis. 4. Hazy attenuation throughout the upper lung moralez. Differential includes pneumonitis, edema and aspiration pneumonia. 5. Sludge layering in the gallbladder. 6. Fibroid uterus. Chest X-Ray 02/12/24 07:17 IMPRESSION: Right arm PICC line with position as above. Laboratory Results WBC 9.22 10^3/uL (3.29-11.43) 02/12/24 04:44 Corrected WBC Cancelled 02/02/24 03:25 RBC 2.62 10^6/uL (3.85-5.65) L 02/12/24 04:44 Hgb 9.00 g/dL (11.27-16.99) L 02/12/24 04:44 Hct 28.8 % (36-47) L 02/12/24 04:44 MCV 109.9 fl (85-98) H 02/12/24 04:44 MCH 34.4 pg (27-33) H 02/12/24 04:44 MCHC 31.3 g/dL (30-55) 02/12/24 04:44 RDW 18.3 % (12.1-15.1) H 02/12/24 04:44 Plt Count 167 10^3/cmm (157-399) 02/12/24 04:44 MPV 11.8 fL (7.4-10.4) H 02/12/24 04:44 Gran % Cancelled 02/02/24 03:25 Neut % (Auto) 46.8 % 02/12/24 04:44 Lymph % (Auto) 15.4 % 02/12/24 04:44 Becker % (Auto) 36.1 % 02/12/24 04:44 Eos % (Auto) 0.2 % 02/12/24 04:44 Baso % (Auto) 0.1 % 02/12/24 04:44 Neut # (Auto) 4.31 10^3/uL (1.8-7.7) 02/12/24 04:44 Lymph # (Auto) 1.4 10^3/uL (0.8-4.8) 02/12/24 04:44 Becker # (Auto) 3.3 10^3/uL (0.2-0.9) H 02/12/24 04:44 Eos # (Auto) 0.0 10^3/uL (0.0-0.8) 02/12/24 04:44 Baso # (Auto) 0.0 10^3/uL (0.0-0.1) 02/12/24 04:44 Absolute Gran (auto) Cancelled 02/02/24 03:25 Nucleated RBC % (auto) 0 % 02/12/24 04:44 Nucleated RBCs # 0.0 /100WBC 02/12/24 04:44 PT 19.30 SECONDS (12.1-14.9) H 02/07/24 13:49 INR 1.57 (0.8-1.2) H 02/07/24 13:49 D-Dimer 0.99 ug/mLFEU (0-0.59) H 02/07/24 13:49 Sodium 136 mmol/L (136-145) 02/12/24 04:44 Potassium 4.3 mmol/L (3.5-5.1) 02/12/24 04:44 Chloride 100 mmol/L (98-107) 02/12/24 04:44 Carbon Dioxide 31 mmol/L (22-29) H 02/12/24 04:44 Anion Gap 9.3 (5-19) 02/12/24 04:44 BUN 12 mg/dL (8-23) 02/12/24 04:44 Creatinine 0.4 mg/dL (0.5-0.9) L 02/12/24 04:44 GFR Calculation Not Reportable 02/12/24 04:44 Glucose 102 mg/dL (65-115) 02/12/24 04:44 POC Glucose 122 mg/dL (70-110) H 02/08/24 04:33 Calculated Osmolality 282 mOsm/kg (285-295) L 02/12/24 04:44 Lactic Acid 1.7 mmol/L (0.5-2.2) 02/01/24 12:15 Lactate 0.9 mmol/L (0.5-2.2) 02/08/24 06:07 Calcium 9.1 mg/dL (8.5-10.5) 02/12/24 04:44 Magnesium 2.0 mg/dL (1.7-2.3) 02/06/24 05:53 Iron 31 ug/dL (37-145) L 02/07/24 12:52 TIBC 93 mcg/dl 02/07/24 12:52 % Saturation 33.3 % (20-50) 02/07/24 12:52 Unsat Iron Binding 62 ug/dL (112-347) L 02/07/24 12:52 Total Bilirubin 1.1 mg/dL (0.15-1.2) 02/08/24 06:07 AST 10 U/L (0-32) 02/08/24 06:07 ALT 6 U/L (0-33) 02/08/24 06:07 Alkaline Phosphatase 74 U/L (35-105) 02/08/24 06:07 Troponin T Baseline 26 ng/L (0-10) H 02/01/24 06:48 Troponin T 120 Minute 26.04 ng/L (0-10) H 02/01/24 08:31 Delta Troponin T 0.04 ABS# (0-10) 02/01/24 08:31 Troponin T Hi Sens 6Hr 26.35 ng/L (0-10) H 02/01/24 11:36 Troponin T Hi Sens 6Hr Delta 0.35 ng/L (0-12) 02/01/24 11:36 NT-Pro-B Natriuret Pep 2640 pg/mL (0-450) H 02/07/24 12:52 Total Protein 7.0 g/dL (6.6-8.7) 02/08/24 06:07 Albumin 3.2 g/dL (3.5-5.2) L 02/08/24 06:07 Globulin 3.8 g/dL (1.3-4.6) 02/08/24 06:07 Vitamin B12 539 pg/mL (232-1245) 02/07/24 12:52 Folate 8.0 ng/mL (4.8-37.3) 02/06/24 05:53 Procalcitonin 0.15 ng/mL (0-0.5) 02/02/24 03:25 TSH 6.03 uIU/mL (0.27-4.20) H 02/01/24 06:48 Urine Color Dark yellow (Yellow) 02/09/24 22:26 Urine Appearance Clear (CLEAR) 02/09/24 22:26 Urine pH 9 (5-7) H 02/09/24 22:26 Ur Specific [place] 1.015 (1.005-1.030) 02/09/24 22:26 Urine Protein Neg (Negative) 02/09/24 22:26 Urine Glucose (UA) Norm (Normal) 02/09/24 22:26 Urine Ketones 1+ (Negative) H 02/09/24 22:26 Urine Blood Neg (Negative) 02/09/24 22:26 Urine Nitrate Negative (Negative) 02/09/24 22:26 Urine Bilirubin Neg (Negative) 02/09/24 22:26 Prot Sulfosalicylic Acd Negative (Negative) 02/09/24 22:26 Urine Urobilinogen 1 mg/dL (Negative) H 02/09/24 22:26 Ur Leukocyte Esterase Negative (Negative) 02/09/24 22:26 Urine RBC 0-4 /hpf (0-2) H 02/01/24 09:13 Urine WBC Rare /hpf (0-5) 02/01/24 09:13 Ur Squamous Epith Cells 0-4 /hpf (0-5) H 02/01/24 09:13 Amorphous Sediment 3+ /hpf 02/01/24 09:13 Urine Bacteria Trace /hpf (NONE) 02/01/24 09:13 Hyaline Casts 5-10 /lpf H 02/01/24 09:13 Vancomycin Trough 14.5 ug/mL (10-15) 02/08/24 06:44 Adenovirus (PCR) Not detected (NOT DETECT) 02/08/24 05:55 C. pneumoniae DNA (PCR) Not detected (NOT DETECT) 02/08/24 05:55 Coronavirus 229E (PCR) Not detected (NOT DETECT) 02/08/24 05:55 Human Metapneumovir PCR Not detected (NOT DETECT) 02/08/24 05:55 Influenza A (H1) PCR Not detected (NOT DETECT) 02/08/24 05:55 Influ A (H1/09) PCR Not detected (NOT DETECT) 02/08/24 05:55 Influenza A (H3) PCR Not detected (NOT DETECT) 02/08/24 05:55 Influenza Type A (PCR) Not detected (NOT DETECT) 02/08/24 05:55 Influenza Type B (PCR) Not detected (NOT DETECT) 02/08/24 05:55 M. pneumoniae (PCR) Not detected (NOT DETECT) 02/08/24 05:55 Parainfluenza 1 (PCR) Not detected (NOT DETECT) 02/08/24 05:55 Parainfluenza 2 (PCR) Not detected (NOT DETECT) 02/08/24 05:55 Parainfluenza 3 (PCR) Not detected (NOT DETECT) 02/08/24 05:55 Parainfluenza 4 (PCR) Not detected (NOT DETECT) 02/08/24 05:55 RSV Type A (PCR) Not detected (NOT DETECT) 02/08/24 05:55 RSV Type B (PCR) Not detected (NOT DETECT) 02/08/24 05:55 Entero/Rhino (PCR) Not detected (NOT DETECT) 02/08/24 05:55 SARS-CoV-2 (PCR) Not detected (NOT DETECT) 02/08/24 05:55 MRSA (PCR) Not detected (NOT DETECTED) 02/05/24 14:10 Blood Type A Positive 02/01/24 12:15 Rho(D) Type Rh positive 02/01/24 12:15 Antibody Screen Negative 02/01/24 12:15 Crossmatch See Detail 02/01/24 12:15 Vitals Last Vital Signs Temp 97.8 F 02/12/24 07:30 Pulse 112 H 02/12/24 10:30 Resp 24 H 02/12/24 10:30 BP 118/67 02/12/24 10:30 Pulse Ox 97 02/12/24 10:30 O2 Del Method Nasal Cannula 02/12/24 10:30 O2 Flow Rate 2 02/12/24 10:30 Discharge Plan Discharge Patient Disposition: Xfer SNF Condition: Stable Prescriptions: New Pacerone 200 mg Tablet 400 mg PO BID 30 Days Qty: 120 0RF metoprolol succinate 25 mg Tablet Extended Release 24 Hr 12.5 mg PO BID 30 Days Qty: 30 0RF Lasix 40 mg tablet 40 mg PO DAILY 30 Days Qty: 30 0RF ertapenem 1 gram recon soln 1 g IV DAILY 10 Days Qty: 10 0RF Continued acetaminophen 325 mg Tablet 325 mg PO TID trazodone 50 mg Tablet 50 mg PO BEDTIME Xanax 0.5 mg Tablet 0.5 mg PO Q8H PRN (Reason: Anxiety) Milk of Magnesia 400 mg/5 mL Suspension 30 ml PO DAILY PRN (Reason: Constipation) paroxetine HCl 20 mg Tablet 20 mg PO DAILY pantoprazole 40 mg Tablet,Delayed Release (Dr/Ec) 40 mg PO DAILY Fleet Enema 19-7 gram/118 mL Enema 118 ml NM DAILY PRN (Reason: Constipation) Discontinued warfarin 3 mg tablet See Rx Instructions .ROUTE .COMPLEX Rx Instructions: TAKE 1 TABLET BY MOUTH 3 TIMES PER WEEK ON THURSDAY, THURSDAY AND THURSDAY. warfarin 2 mg Tablet See Rx Instructions .ROUTE .COMPLEX Rx Instructions: TAKE 2 MG BY MOUTH 4 TIMES PER WEEK ON THURSDAY, THURSDAY, THURSDAY AND THURSDAY. diltiazem HCl 30 mg Tablet 30 mg PO Q6H PRN (Reason: heart rate > 120) Qty: 60 0RF Discharge Orders: Discharge Order (Routine); Ordered 02/12/24 Ordered By: Mayra Foreman Other Ambulatory Orders: CT abdomen pelvis wo con [id number] (Routine) Timeframe: 2 Weeks Facility: [facility] - Location: Radiology [place] [facility] Ordered By: Mayra Foreman Basic Metabolic Panel (Routine) Timeframe: 2 Weeks Facility: [facility] - Location: Lab - Main Lab Ordered By: Mayra Foreman Complete Blood Count w/Auto (Routine) Timeframe: 2 Weeks Location: Determined by Patient Ordered By: Mayra Foreman Referrals: [facility] [Outside] Derek Ramesh MD [Primary Care Provider] - Discharge Diet: Cardiac Discharge Activity: Increase activity as tolerated Patient Instructions: Opioid Safety Patient's Health Concerns: Given history of right emphysematous pyelitis, she needs antibiotics IV ertapenem 1 g daily for 10 days, repeat CT abdomen pelvis in 2 weeks or early if condition deteriorates. Discharge Attestations Time Spent in Discharge Care*: less than 30 min Quality Metrics Clinical Quality Measures [ No reported AMI, CVA or VTE this stay] Coding Level of Care Code Acute Code for Chg Fwd Diagnoses Acute encephalopathy G93.40 Acute blood loss anemia D62 Syncope R55 Acute GI bleeding K92.2 Encephalopathy G93.40 Hypoxia R09.02 Atrial fibrillation with rapid ventricular response I48.91 CHF (congestive heart failure) I50.9 Time Spent (min) 30
[2024-02-12 13:36] LABS: SARS Covid-2 Antigen negative (Negative)
--- NOTE | 2024-02-12 14:04 | PC.NURSE ---
Miles Esparza called. [phone]. Report given to Medina oHu LPN. All questions answered.
--- NOTE | 2024-02-12 14:20 | PC.NURSE ---
Discharge instructions reviewed with Smiley Lizarraga, Pt's daughter. Care notes on medications ertapenem, amiodarone, metoprolol provided and discussed. Follow-up appt discussed. All questions answered.
--- NOTE | 2024-02-12 14:53 | PC.NURSE ---
Ambulance crew here. Pt discharged to their care. Miles Esparza called and notified of pt leaving [facility].
== END 2024-02-12 14:20 | disposition skilled nursing facility (03) | DRG 377 ==
LOC: ER 08:20 → ICU 08:50 → MEDSURG 02-03 01:27 → ICU 02-08 05:56
PROVIDERS: Emergency Medicine; Student in an Organized Health Care Education/Training Program; Admitting Provider Internal Medicine; Emergency Provider Family Medicine; PCP Family Medicine; Visit Provider Internal Medicine
DX: K92.2 Gastrointestinal hemorrhage, unspecified (principal); I50.31 Acute diastolic (congestive) heart failure; J69.0 Pneumonitis due to inhalation of food and vomit; I48.20 Chronic atrial fibrillation, unspecified; D62 Acute posthemorrhagic anemia; G93.40 Encephalopathy, unspecified; N10 Acute pyelonephritis; N13.30 Unspecified hydronephrosis; I11.0 Hypertensive heart disease with heart failure; T45.511A Poisoning by anticoagulants, accidental (unintentional), initial encounter; F41.8 Other specified anxiety disorders; K21.9 Gastro-esophageal reflux disease without esophagitis; R09.02 Hypoxemia; Z66 Do not resuscitate; I95.9 Hypotension, unspecified; E83.42 Hypomagnesemia; E87.6 Hypokalemia; Z11.52 Encounter for screening for COVID-19; Z99.81 Dependence on supplemental oxygen
CPT/HCPCS: 36415; 36416; 36430; 36573; 36592; 51702; 71045; 71250; 74176; 80048; 80053; 80202; 81001; 81003; 82607; 82746; 82962; 83540; 83550; 83605; 83735; 83880; 84145; 84443; 84484; 85014; 85018; 85025; 85378; 85610; 86850; 86900; 86920; 87040; 87086; 87426; 87486; 87581; 87633; 87641; 92507; 92526; 92610; 93005; 93308; 96365; 96372; 96375; 96376; 97110; 97161; 99291; C9113; J1940; J2060; J2185; J2543; J3370; J3430; J3475; J3480; J3490; J7030; J7040; J7050; P9016; P9040; P9045; P9046